=== PATIENT | male | born 1960 ===

== ENCOUNTER 2020-08-10 10:52 | Outpatient (REF) | payer MEDICARE, SELFPAY ==
[2020-08-10 13:29] LABS: MANUAL DIFF FLAG NO
[2020-08-10 13:38] LABS: Basophils Percent Auto 0.4 % (0-2); Eosinophils Absolute Auto 0.2 X10*3/uL (0.0-0.4); Eosinophils Percent Auto 3.2 % (0-4); Hemoglobin 13.2 g/dl (14.0-18.0); Imm Gran Abs Auto 0.02 X10*3/uL (0.00-0.03); Imm Gran Pct Auto 0.3 % (0.0-0.4); Lymphocytes Absolute Auto 1.9 X10*3/uL (1.2-4.9); Lymphocytes Percent Auto 25.1 % (20-40); Mean Corpuscular Hemoglobin 28.4 pg (27.0-33.0); Mean Platelet Volume 10.3 fL (9.4-12.4); Monocytes Absolute Auto 0.6 X10*3/uL (0.1-1.2); Monocytes Percent Auto 8.1 % (2-11); Neutrophils Absolute Auto 4.7 X10*3/uL (2.0-8.3); Neutrophils Percent Auto 62.9 % (45-73); Platelet Count 186 X10*3/uL (160-400); Red Blood Count 4.65 X10*6/uL (4.60-5.80); Red Cell Distribution Width 13.3 % (11.0-16.0); White Blood Count 7.5 X10*3/uL (4.8-10.8)
[2020-08-10 13:40] LABS: Estimated Average Glucose 105 mg/dL; Hemoglobin A1c % 5.3 %
[2020-08-10 13:48] LABS: Alanine Aminotransferase 37 U/L (0-40); Albumin Level 4.3 g/dL (3.5-5.0); Alkaline Phosphatase 73 U/L (39-117); Anion Gap 10 (12-20); Aspartate Amino Transferase 31 U/L (5-37); Bilirubin Total 0.7 mg/dL (0.0-1.0); Blood Urea Nitrogen 12 mg/dL (9-16); Carbon Dioxide 30 mmol/L (22-29); Chloride 104 mmol/L (96-108); Cholesterol 187 mg/dL; Estimated Glomerular Filt Rate > 60; Glucose Fasting 94 mg/dL (60-99); HDL Cholesterol 54 mg/dL; LDL Cholesterol Calculated 100 mg/dl; Potassium 4.3 mmol/l (3.3-5.1); Sodium 140 mmol/L (135-145); Total Protein 6.9 g/dL (6.5-8.0); Triglycerides 165 mg/dL
[2020-08-10 14:12] LABS: TSH reflex Free T4 < 0.01 mIU/mL (0.32-4.0)
[2020-08-10 14:34] LABS: Erythrocyte Sedimentation Rate 16 MM/HR (0-15)
[2020-08-10 15:11] LABS: Free T4 (Free Thyroxine) 1.09 ng/dL (0.71-1.85)
[2020-08-10 16:09] LABS: Appearance Urine CLEAR; Color Urine YELLOW; Glucose Urine UA NEG (NEG); Leukocyte Esterase Urine NEG (NEG); Nitrite Urine NEG (NEG); Specific Gravity - Urine 1.025 (1.005-1.025); Urine Blood NEG (NEG); Urine Ketones NEG (NEG); Urine Protein NEG (NEG-TRACE)
[2020-08-10 16:16] LABS: RBC Urine 0 /HPF (0); WBC Urine 0 /HPF (0-4)
== END 2020-08-10 10:53 | disposition home or self-care (01) ==
LOC: HO.LAB 10:52
PROVIDERS: PCP Internal Medicine; Referring Provider Internal Medicine; Visit Provider Surgery Vascular Surgery
DX: J45.20 Mild intermittent asthma, uncomplicated (principal); R73.01 Impaired fasting glucose; E66.9 Obesity, unspecified; I83.813 Varicose veins of bilateral lower extremities with pain; I73.9 Peripheral vascular disease, unspecified
CPT/HCPCS: 36415; 80053; 80061; 81001; 81003; 83036; 84439; 84443; 85025; 85652; 99203

== ENCOUNTER 2020-08-28 13:45 | Outpatient (REF) | payer MEDICARE, MEDICAID, OTHER, SELFPAY ==
--- NOTE | 2020-08-28 13:49 | US_ITS ---
EXAMINATION: NONINVASIVE ASSESSMENT OF THE ARTERIES OF BOTH LOWER EXTREMITIES WITH PVR EXAM AND BILATERAL LOWER EXTREMITY DUPLEX CLINICAL INFORMATION: Peripheral vascular disease. TECHNIQUE: Ankle pulse volume recordings, ankle pressure measurements and ankle brachial indices were obtained of the lower extremity arterial system bilaterally in addition to duplex Doppler techniques with wave form analysis and measurement of velocities in the common femoral, profunda femoral, superficial femoral, popliteal and tibial arteries. The study was performed only at rest. COMPARISON: None FINDINGS: a) AT REST: RIGHT LE. The right ankle-brachial index is: 1.3 2. Right ankle pressure: normal. 3. Right ankle PVR waveform: normal. 4. Right direct duplex Doppler findings: The vessels are patent. No stenosis is seen. * Common femoral artery: 108 cm/s, Diastolic flow reversal: Yes * Superficial femoral artery (proximal, mid, distal): 97, 110 and 75 cm/s, Diastolic flow reversal: Yes * Popliteal artery: 66 cm/s, Diastolic flow reversal: Yes * Posterior tibial artery: 131 cm/s, Diastolic flow reversal: No LEFT LE. The left ankle-brachial index is: 1.3 2. Left ankle pressure: normal. 3. Left ankle PVR waveform: normal. 4. Left direct duplex Doppler findings: The vessels are patent. No stenosis is seen. * Common femoral artery: 93 cm/s, Diastolic flow reversal: Yes * Superficial femoral artery (proximal, mid, distal): 101, 98 and 80 cm/s, Diastolic flow reversal: Yes * Popliteal artery: 53 cm/s, Diastolic flow reversal: Yes * Posterior tibial artery: 127 cm/s, Diastolic flow reversal: No SILVANA Reference: * >0.97-1.25 = normal - no significant arterial disease * 0.75-0.96 = mild peripheral arterial disease * 0.5-0.74 = moderate peripheral arterial disease * <0.50 = severe peripheral arterial disease US/US arterial duplex LE BI IMPRESSION: There is no evidence of any hemodynamically significant lower extremity arterial disease by pressure, waveform or duplex Doppler criteria at rest.
--- NOTE | 2020-08-28 13:49 | US_ITS ---
EXAMINATION: RIGHT and LEFT LOWER EXTREMITY VENOUS ULTRASOUND (Reflux Exam) CLINICAL INDICATION: leg pain and varicose veins. COMPARISON: None. TECHNIQUE: Color flow triplex imaging and compression Doppler was performed to evaluate both the deep and the superficial systems bilaterally. To evaluate the superficial system, the examination was performed in the upright position. Color-flow Doppler ultrasound and compression ultrasound were utilized. In addition, maneuvers were utilized to demonstrate reflux. FINDINGS: 1. DEEP VENOUS ULTRASOUND OF THE RIGHT LOWER EXTREMITY: Respiratory variation, normal compression and augmented flow are noted in the right common femoral vein as well as the right popliteal vein and there is no evidence of deep venous thrombosis at these locations. There is no evidence of reflux in the deep system in either the common femoral vein or the popliteal vein. There is no evidence of a Cook's cyst. 2. SUPERFICIAL ULTRASOUND WITH DOPPLER OF RIGHT LOWER EXTREMITY: The right great saphenous vein at the saphenofemoral junction measures 8 mm, at the mid thigh 3 mm, wismp-zzr-akmp 3 mm, nyejx-rdd-fema 3 mm, at mid calf 2 mm and at the ankle measures 2 mm. There is no reflux demonstrated in the right great saphenous vein. There is a medial accessory greater saphenous vein that measures 4 mm and does not demonstrate reflux. The right small saphenous vein measures 2 mm and shows no reflux. There are peripheral there is a automatic folder seamer in the proximal calf that measures 3 mm and demonstrates 0.5 second reflux. There is a 3 mm automatic folder seamer in the distal calf that does not demonstrate reflux. There is a varicosity in the proximal calf that measures 3 mm and demonstrates 0.9 seconds reflux. 3. DEEP VENOUS ULTRASOUND OF THE LEFT LOWER EXTREMITY: Respiratory variation, normal compression and augmented flow are noted in the left common femoral vein as well as the left popliteal vein and there is no evidence of deep venous thrombosis at these locations. There is no evidence of reflux in the deep system in either the common femoral vein or the popliteal vein. . There is no evidence of a Cook's cyst. 4. SUPERFICIAL ULTRASOUND WITH DOPPLER OF LEFT LOWER EXTREMITY: Left great saphenous vein at the saphenofemoral junction measures 11 mm, at the mid thigh 3 mm, fzkit-dar-fwqr 3 mm, nodzp-dwm-opbs 4 mm, at mid calf 3 mm and at the ankle measures 3 mm. There is no reflux demonstrated in the left great saphenous vein. There is a medial accessory greater saphenous vein that measures 5 mm and does not demonstrate reflux. The left small saphenous vein measures 3 mm and shows no reflux. There are perforators in the proximal and mid calf that measures 3 mm and do not demonstrate reflux. There are varicosities in the calf that measures 3 mm and do not demonstrate reflux. US/US venous duplex LE BI IMPRESSION: 1. No evidence of reflux or thrombus in the common femoral veins or popliteal veins bilaterally. 2. No greater saphenous vein reflux seen bilaterally. 3. [employer]ician and varicosity in the right proximal calf that demonstrate reflux.
== END 2020-08-28 13:46 | disposition home or self-care (01) ==
LOC: HO.US 13:45
PROVIDERS: Visit Provider Surgery Vascular Surgery
DX: I83.12 Varicose veins of left lower extremity with inflammation (principal); I73.9 Peripheral vascular disease, unspecified
CPT/HCPCS: 93925; 93970

== ENCOUNTER → 2020-09-26 14:05 | Outpatient (BNVA) | payer MEDICARE, SELFPAY | PROVIDERS: PCP Internal Medicine; Visit Provider Surgery Vascular Surgery | DX: I73.9 Peripheral vascular disease, unspecified (principal); I83.12 Varicose veins of left lower extremity with inflammation | CPT/HCPCS: 99212 ==

== ENCOUNTER → 2020-10-03 15:11 | Outpatient (BNVA) | payer OTHER, SELFPAY | PROVIDERS: PCP Internal Medicine; Referring Provider Internal Medicine; Visit Provider Nurse Practitioner | DX: Z76.89 Persons encountering health services in other specified circumstances (principal) ==

== ENCOUNTER 2020-12-05 07:31 | Day surgery (SDC) | payer MEDICARE, OTHER, SELFPAY ==
[2020-11-30 12:08] VITALS: BMI 32.1
--- NOTE | 2020-12-04 08:34 | HO.ANESPROP2 ---
Documented by User: Caren Lindsay 12/04/20 08:34 HPI - Anesthesia Eval Consult details Narrative: 60yo M for Colonoscopy [facility] Past Medical History Medical History (Updated 10/15/20 @ 18:20 by Volodymyr Keller MD) Anemia Asthma Bilateral ankle pain COVID-19 Obesity (BMI 30-39.9) Pain of right heel Pruritic rash Shoulder pain, bilateral Family History Family History Father No problems noted. Mother No problems noted. Son No problems noted. Son No problems noted. Son No problems noted. Son No problems noted. Son No problems noted. Daughter No problems noted. Daughter No problems noted. Brother No problems noted. Brother No problems noted. Brother No problems noted. Brother No problems noted. Brother No problems noted. Brother No problems noted. Sister No problems noted. Sister No problems noted. Social History Social History Alcohol intake: current Alcohol intake frequency: a few times a week Smoking Status: Never smoker Use of substances other than those prescribed or required for medical reasons: No Advance Directives: No Advance Directives Information Provided: No Advance Directives on File: No Meds Allergies Allergy/AdvReac Type Severity Reaction Status Date / Time latex Allergy Rash Verified 11/30/20 12:07 Home Medications Medication Instructions Recorded Confirmed Type albuterol sulfate 90 mcg/actuation 1 - 2 puff INHALATION Q4-6H PRN 08/10/20 10/03/20 History aerosol inhaler Exam Exam Date and Time: December 04, 2020 0834 Height,Weight and Vital Signs: Height 5 ft 11 in Weight 104.326 kg Assessment and Plan Assessment Anesthesia Assessment: Chart Reviewed Documented by User: Eleni Crawford 12/05/20 08:10 [facility] Past Medical History Medical History (Updated 10/15/20 @ 18:20 by Volodymyr Keller MD) Anemia Asthma Bilateral ankle pain COVID-19 Obesity (BMI 30-39.9) Pain of right heel Pruritic rash Shoulder pain, bilateral Family History Family History Father No problems noted. Mother No problems noted. Son No problems noted. Son No problems noted. Son No problems noted. Son No problems noted. Son No problems noted. Daughter No problems noted. Daughter No problems noted. Brother No problems noted. Brother No problems noted. Brother No problems noted. Brother No problems noted. Brother No problems noted. Brother No problems noted. Sister No problems noted. Sister No problems noted. Social History Social History Alcohol intake: current Alcohol intake frequency: a few times a week Smoking Status: Never smoker Use of substances other than those prescribed or required for medical reasons: No Advance Directives: No Advance Directives Information Provided: No Advance Directives on File: No Meds Allergies Allergy/AdvReac Type Severity Reaction Status Date / Time latex Allergy Rash Verified 11/30/20 12:07 Home Medications Medication Instructions Recorded Confirmed Type albuterol sulfate 90 mcg/actuation 1 - 2 puff INHALATION Q4-6H PRN 08/10/20 10/03/20 History aerosol inhaler Exam Airway Mallampati Class: III TM Dist: >3cm Neck ROM: Full Loose/Missing/Broken Teeth: No Heart: RRR Lungs: CTA Assessment and Plan Assessment Anesthesia Assessment: Anesthesia Plan Discussed and Chart Reviewed Final Anesthetic Review NPO: Yes ASA Class: II Final Preanesthetic Review: Meds/Allgs Chart Reviewed, Consent Obtained/Reviewed and Anes Risks/Benef Reviewed Patient Risk: Low Procedure Risk: Low Anesthetic Plan Anesthetic Plan: MAC: Disposition: Standard PACU
[2020-12-05 08:11] VITALS: BP 134/89; PULSE 80; RESP 16; TEMP 36.6; O2SAT 98
[2020-12-05] MEDS: Lactated Ringers 1,000 ML 100 ML IVCONT (08:16)
--- NOTE | 2020-12-05 08:42 | MHC.SHP ---
Pre-Procedural Eval Section B Chief Complaint: screening Details of Present Illness: COLON CANCER SCREENING #1 NO CLINICAL CHANGES SINCE OCTOBER S/P COVID INFECTION >3 MONTHS Relevant Family History (Specify if Yes): No Relevant Social History: None Present Medications: see Short Stay Collaborative assessment Medical History: Significant History (ASTHMA, OBESITY) History of Previous Operations: No relevant previous surgery Allergies: Allergies Allergy/AdvReac Type Severity Reaction Status Date / Time latex Allergy Rash Verified 11/30/20 12:07 Review of Systems Sugical H&P ROS: Negative: Constitution, Cardiovascular, Respiratory and Gastrointestinal Exam Surgical H&P Exam: Normal: HEENT, Normal: Heart, Normal: Lungs, Normal: Abdomen and Normal: Skin Plan Diagnosis/Plan: Unchanged I have reviewed the history and physical and performed a pertinent physical examination on my patient. No changes have occurred unless specified.YES
--- NOTE | 2020-12-05 09:14 | PM.PROC ---
Brief Operative Note Date of procedure: 12/05/20 Pre-op diagnosis: COLON CANCER SCREENING #1 Post-op diagnosis: other (COLON POLYPS, POOR PREP) Procedure: SILVANA: PROSTATE-NL, SPHINCTER DECREASED SCOPE INTRODUCED NOTE GENERALLY POOR PREP; ABLE TO GET TO CECUM BUT LIMITED VISIBILITY. ON WITHDRAWAL 2 POLYPS WERE REMOVED EXCISIONALLY COLD BX FORCEPS. ARV CLEAR/ AREAS BLINDED DUE TO PREP. REPEAT EXAM IN 3 YEARS --2 DAY PREP Anesthesia: MAC (JOE URRUTIA, MD YOKO) Surgeon: Ruchi Green Estimated blood loss (mL): 10 Pathology: other (DISTAL TRANSVERSE COLON, 60--70CM) Condition: stable Disposition: PACU
[2020-12-05 09:19] VITALS: BP 123/58; PULSE 69; RESP 16; TEMP 36.6; O2SAT 98
--- NOTE | 2020-12-05 09:26 | MHC.SHP ---
Pre-Procedural Eval Section B Chief Complaint: screening Details of Present Illness: Colon Cancer Screening; Hx of tubular adenoma ? hx Brother with colon cancer @ 38. Relevant Family History (Specify if Yes): Yes Relevant Social History: Tobacco Use (stopped 2017) Present Medications: see Short Stay Collaborative assessment Medical History: Significant History (asthma, copd, CRUZ-CPAP, Morbid Obesity(44.8)anxiety/depression) History of Previous Operations: Relevant previous surgery/procedure and date(s) (colo--2019; Disc surgery, umbiical hernia repair) Allergies: Allergies Allergy/AdvReac Type Severity Reaction Status Date / Time latex Allergy Rash Verified 11/30/20 12:07 Review of Systems Sugical H&P ROS: Negative: Constitution, Cardiovascular, Respiratory, Neurological, Psychiatric and Gastrointestinal Exam Surgical H&P Exam: Normal: HEENT, Normal: Heart, Normal: Lungs and Normal: Extremities and Significant Findings: Abdomen (marked central obesity) Plan Diagnosis/Plan: Unchanged I have reviewed the history and physical and performed a pertinent physical examination on my patient. No changes have occurred unless specified.Yes
[2020-12-05 09:33] VITALS: BP 135/95; PULSE 71; RESP 18; O2SAT 98
--- NOTE | 2020-12-05 09:39 | PM.EVENT ---
Event Note Date of Service: 12/05/20 Event Note: Patient was a no show. THE PREPROCEDURE NOTE WAS DONE IN ERROR--NO INFORMATION FROM THIS PATIENT--INFO ENTERED IN ERROR FROM THE WRONG PATIENT.. THIS PATIENT WILL NEED TO BE RESCHEDULED.
[2020-12-05 09:53] VITALS: BP 120/80; PULSE 72; RESP 20; TEMP 36.8; O2SAT 98
--- NOTE | 2020-12-05 10:24 | HO.POSTANES ---
Post Anesthesia Evaluation Post Anesthesia Evaluation Vital Signs: Vital Signs Temp Pulse Resp BP Pulse Ox 12/05/20 09:53 98.2 F 72 20 120/80 98 12/05/20 09:33 71 18 135/95 H 98 12/05/20 09:19 97.9 F 69 16 123/58 L 98 12/05/20 08:11 97.8 F 80 16 134/89 98 Anesthesia: Monitored Mental Status: Awake Pain Control: Satisfactory Nausea/Vomiting: None Hydration: Adequate Anesthesia-Related Issues: No Anes. Related Issues
== END 2020-12-05 10:40 | disposition home or self-care (01) ==
PROVIDERS: PCP Internal Medicine; Visit Provider Internal Medicine Gastroenterology
PROC: 0DJD8ZZ Inspection of Lower Intestinal Tract, Via Natural or Artificial Opening Endoscopic (ICD-10-PCS; CPT 45378; principal; 2020-12-05 08:40)
DX: Z12.11 Encounter for screening for malignant neoplasm of colon (principal); D12.3 Benign neoplasm of transverse colon; D12.4 Benign neoplasm of descending colon; D64.9 Anemia, unspecified; J45.909 Unspecified asthma, uncomplicated; Z91.040 Latex allergy status; Z86.16 Personal history of COVID-19
CPT/HCPCS: 45380; 88305

== ENCOUNTER → 2020-12-26 15:12 | Outpatient (BNVA) | payer OTHER, SELFPAY | PROVIDERS: PCP Internal Medicine; Visit Provider Nurse Practitioner ==

== ENCOUNTER → 2021-03-26 12:50 | Outpatient (BNVA) | payer MEDICARE, OTHER, SELFPAY | PROVIDERS: Visit Provider Nurse Practitioner | DX: Z13.89 Encounter for screening for other disorder (principal) | CPT/HCPCS: Q3014 ==

== ENCOUNTER → 2021-04-24 12:58 | Outpatient (BNVA) | payer OTHER, SELFPAY | PROVIDERS: Referring Provider Internal Medicine; Visit Provider Nurse Practitioner ==

== ENCOUNTER 2021-05-16 10:12 | Outpatient (REF) | payer OTHER, SELFPAY ==
--- NOTE | ~2021-05-16 | XR_ITS ---
EXAMINATION: XR CHEST CLINICAL INFORMATION: Dyspnea. COMPARISON: Chest radiograph dated 12/08/2006. TECHNIQUE: 2 views of the chest were obtained. FINDINGS: The lungs are clear. The cardiomediastinal silhouette is normal in size. There is no pleural effusion or pneumothorax. No acute osseous abnormality. XR/XR chest 2V IMPRESSION: No acute cardiopulmonary findings.
== END 2021-05-16 10:13 | disposition home or self-care (01) ==
LOC: HO.XRAY 10:12
PROVIDERS: PCP Internal Medicine; Visit Provider Internal Medicine
DX: R06.00 Dyspnea, unspecified (principal)
CPT/HCPCS: 71046

== ENCOUNTER 2021-06-08 11:01 | Outpatient (REF) | payer OTHER, SELFPAY ==
--- NOTE | 2021-06-08 | PFT_ITS ---
FLOWS: FEV1 of 86% of predicted at 3.28 L. FVC 77% of predicted at 3.78 L. FEV1 to FVC ratio of 0.87. No bronchodilator response. LUNG VOLUMES: Total lung capacity 72% of predicted at 5.18 L. Residual volume 62% of predicted at 1.41 L. Slow vital capacity 76% of predicted at 3.76 L. Expiratory reserve volume 46% of predicted at 0.69 L. Diffusion capacity is mildly decreased, diffusion capacity adjust to normal after correction for alveolar ventilation. IMPRESSION: Mild restrictive ventilatory defect with no bronchodilator response. Decreased expiratory reserve volume suggests extrathoracic restriction secondary to abdominal obesity. Decreased diffusion capacity together with decreased total lung capacity suggests underlying pulmonary vascular or parenchymal disease. Clinical correlation is advised. MD CARLA Joseph/MODL / [id number]
== END 2021-06-08 11:02 | disposition home or self-care (01) ==
LOC: HO.RESP 11:01
PROVIDERS: PCP Internal Medicine; Visit Provider Internal Medicine
DX: R06.00 Dyspnea, unspecified (principal)
CPT/HCPCS: 94060; 94727; 94729

== ENCOUNTER → 2021-10-02 14:25 | Outpatient (BNVA) | payer MEDICARE, OTHER, SELFPAY | PROVIDERS: PCP Internal Medicine; Visit Provider Internal Medicine Pulmonary Disease | DX: R06.00 Dyspnea, unspecified (principal) | CPT/HCPCS: 99202 ==

== ENCOUNTER 2021-10-18 14:21 | Outpatient (REF) | payer MEDICARE, MEDICAID, SELFPAY ==
--- NOTE | ~2021-10-18 | CT_ITS ---
EXAMINATION: CT CHEST WITHOUT CONTRAST CLINICAL INFORMATION: Post Covid condition COMPARISON: None TECHNIQUE: Multidetector volumetric CT imaging of the chest was done. Axial MIP volume rendering provided. Sagittal and coronal reformatted images were obtained. This CT examination was performed using dose optimization techniques as appropriate, variously including the following: *Automated exposure control *Adjustment of mA and/or kV according to patient size (this includes techniques or standardized protocols for targeted exams where dose is matched to indication/reason for exam; i.e. extremities or head) *Use of iterative reconstruction technique DLP: 186 mGy-cm FINDINGS: LUNGS: There is a 5 mm peripheral or subpleural right lower lobe nodule adjacent to the major fissure axial image 89 series 5. There is a 4 mm peripheral or subpleural left lower lobe nodule adjacent to the fissure axial image 212 series 5. There is a 4 mm peripheral or subpleural right upper lobe nodule adjacent to the minor fissure axial image 239 series 5. These probably represent subpleural lymph nodes. There are areas of heterogeneous increased peripheral attenuation seen in the lungs, largest area measuring 1.5 cm in the right upper lobe axial image 114 series 5. MEDIASTINUM: The mediastinum is normal. PLEURA: There is no pleural effusion. No pleural mass or thickening. AXILLA: No lymphadenopathy. UPPER ABDOMEN: Unremarkable. OSSEOUS STRUCTURES: Unremarkable. CT/CT chest wo con IMPRESSION: Small pulmonary nodules probably representing subpleural lymph nodes measuring 4 mm. According to the UPDATED 2017 Fleischner Society recommendations, the advised follow-up imaging for less than 6 mm nodule: Low risk, no chest CT follow-up and high risk, optional chest CT follow-up in one year. Scattered small peripheral areas of increased attenuation. Fleischner guidelines were followed.
== END 2021-10-18 14:22 | disposition home or self-care (01) ==
LOC: HO.CT 14:21
PROVIDERS: Visit Provider Internal Medicine Pulmonary Disease
DX: U09.9 Post COVID-19 condition, unspecified (principal)
CPT/HCPCS: 71250

== ENCOUNTER → 2021-10-23 13:09 | Outpatient (BNVA) | payer MEDICARE, MEDICAID, SELFPAY | PROVIDERS: PCP Internal Medicine; Referring Provider Internal Medicine; Visit Provider Nurse Practitioner | DX: K21.9 Gastro-esophageal reflux disease without esophagitis (principal); R19.7 Diarrhea, unspecified; R10.9 Unspecified abdominal pain | CPT/HCPCS: 99212 ==

== ENCOUNTER → 2021-12-11 08:22 | Outpatient (REF) | payer MEDICARE, OTHER, MEDICAID, SELFPAY ==
--- NOTE | 2021-12-11 08:25 | CA_ITS ---
Transthoracic Echocardiogram Patient (Last, First, Middle): Demarcsu Molina R Gender: Male Date of : 1960 Age: 61 Procedure Date: 12/11/2021 Procedure Type: Transthoracic Echocardiogram Location: OP Height: 180.34 cm Weight: 106.6 kg BSA: 2.26 m2 Heart Rate: bpm BP: 120 / 82 mmHg Pharm Spec: ADRIAN Referring MD: Matty Larios MD Symptoms: R06.00 - Dyspnea, unspecified Study Quality: Good ECG Rhythm: Sinus Conclusions: - The left ventricular systolic function is normal. The visually estimated ejection fraction is between 60-65%. - No obvious valvular pathology seen on this study. - There is mild dilatation of the ascending aorta measuring 4.10 cm. - The inferior vena cava is mildly dilated (not well visualized). Findings Left Ventricle Normal left ventricular cavity size. The left ventricular systolic function is normal. The visually estimated ejection fraction is between 60-65%. There is no evidence of regional wall motion abnormalities. Diastolic function is normal for age. There is mild septal asymmetric hypertrophy. Right Ventricle Normal right ventricular cavity size and systolic function. Atria The left atrium is mildly dilated. The right atrium is normal in size. Aortic Valve There is a normal trileaflet aortic valve. There is no aortic valve stenosis. There is trace (trivial) aortic valve regurgitation. Mitral Valve The mitral valve appears normal. There is trace mitral valve regurgitation. There is no mitral valve stenosis. Pulmonic Valve The pulmonic valve was not well visualized. There is trace pulmonic valve regurgitation. Tricuspid Valve Normal tricuspid valve structure. There is trace tricuspid valve regurgitation. The pulmonary artery systolic pressure is normal. Great Vessels There is mild dilatation of the ascending aorta measuring 4.10 cm. Venous The inferior vena cava was not well visualized. The inferior vena cava is mildly dilated. Pericardium/Pleural There is no evidence of pericardial effusion. Prior Study Comparison No prior study available for comparison. Recommendations, Care & Conclusions No obvious valvular pathology seen on this study. Measurements 2D Linear Measurements IVSd: 1.08 0.6-0.9/0.6-1.0 cm LVIDd: 5.16 3.9-5.3/4.2-5.9 cm LVIDd Index: 2.28 2.4-3.2/2.2-3.1 cm/m2 LVIDs: 2.79 2.0-3.6 cm LVPWd: 0.99 0.7-1.1 cm Ao Root: 3.80 2.1-3.5 cm LA Diam: 4.10 2.7-3.8/3.0-4.0 cm LAIDs Index: 1.81 1.5-2.3 cm/m2 LV Mass: 250.00 67-162/88-224 g LV Mass Index: 110.62 43-95/49-115 g/m2 LVOT Diam: 2.20 3.0+(-)1.3 cm 2D Systolic Function EF 4C: 58.80 >55% EF 2C: 60.00 >55% EF BiP: 57.30 >55% Mitral Valve MV Pk E: 0.96 MV PK A: 0.47 MV Decel Time: 204.00 E/A: 2.10 E'Lateral: 10.70 E'Medial: 8.70 E/E' Med: 11.00 E/E' Lat: 9.00 PHT: 60.00 MVA PHT: 3.67 Decel [place]: 4.72 Aortic Valve AoV Pk Joseph: 1.35 AoV Mn Joseph: 0.94 AoV VTI: 0.31 AoV Pk Grad: 7.00 Aov Mn Grad: 4.00 LVOT LVOT Diam: 2.20 LVOT Area: 3.80 Diastolic Function MV Pk E: 0.96 MV Pk A: 0.47 E/A: 2.10 E'Medial: 8.70 E/E' Med: 11.00 E' Laterial: 10.70 E/E' Lat: 9.00 Right Ventricle TAPSE (mm): 24.40 TVS' Joseph: 11.60 Tricuspid Valve TR Pk Joseph: 1.66 TR Pk Grad: 11.00 RA Press: 8.00 RVSP: 19.00 Great Vessels Aorta Ao Root-2D: 3.80 2.0-3.7 cm Ao Asc: 4.10 2.1-3.4 cm Ao Arch: 3.50 Updated in Other Vendor System with Status of Final Dago Wan MD electronically signed on 12/11/2021 11:14:03 AM with status of Final
== END ==
LOC: HO.CARD 08:22
PROVIDERS: PCP Internal Medicine; Visit Provider Internal Medicine Pulmonary Disease
DX: R06.00 Dyspnea, unspecified (principal)
CPT/HCPCS: 93306

== ENCOUNTER → 2021-12-27 13:05 | Outpatient (BNVA) | payer MEDICARE, MEDICAID, SELFPAY | PROVIDERS: PCP Internal Medicine; Visit Provider Internal Medicine Pulmonary Disease | DX: R06.00 Dyspnea, unspecified (principal); U09.9 Post COVID-19 condition, unspecified; J45.20 Mild intermittent asthma, uncomplicated | CPT/HCPCS: 99212 ==

== ENCOUNTER → 2022-01-22 13:02 | Outpatient (BNVA) | payer MEDICARE, MEDICAID, SELFPAY | PROVIDERS: PCP Internal Medicine; Referring Provider Internal Medicine; Visit Provider Nurse Practitioner | DX: R10.9 Unspecified abdominal pain (principal); K21.9 Gastro-esophageal reflux disease without esophagitis; R19.7 Diarrhea, unspecified; Z79.899 Other long term (current) drug therapy | CPT/HCPCS: 99212 ==

== ENCOUNTER → 2022-04-09 13:28 | Outpatient (BNVA) | payer MEDICARE, MEDICAID, SELFPAY | PROVIDERS: PCP Internal Medicine; Referring Provider Internal Medicine; Visit Provider Nurse Practitioner | DX: K21.9 Gastro-esophageal reflux disease without esophagitis (principal); K58.2 Mixed irritable bowel syndrome; Z79.899 Other long term (current) drug therapy | CPT/HCPCS: 99212 ==

== ENCOUNTER 2022-08-29 12:02 | Outpatient (REF) | payer MEDICARE, MEDICAID, SELFPAY ==
[2022-08-29 12:41] LABS: MANUAL DIFF FLAG NO
[2022-08-29 13:40] LABS: Basophils Percent Auto 0.4 % (0-2); Eosinophils Absolute Auto 0.3 X10*3/uL (0.0-0.4); Eosinophils Percent Auto 3.8 % (0-4); Hematocrit 39.7 % (42.0-52.0); Hemoglobin 12.6 g/dl (14.0-18.0); Imm Gran Abs Auto 0.01 X10*3/uL (0.00-0.03); Imm Gran Pct Auto 0.1 % (0.0-0.4); Lymphocytes Absolute Auto 1.9 X10*3/uL (1.2-4.9); Lymphocytes Percent Auto 26.2 % (20-40); Mean Corpuscular HGB Conc 31.7 g/dl (31.0-36.0); Mean Corpuscular Hemoglobin 27.5 pg (27.0-33.0); Mean Corpuscular Volume 86.5 fL (80.0-98.0); Mean Platelet Volume 10.4 fL (9.4-12.4); Monocytes Absolute Auto 0.7 X10*3/uL (0.1-1.2); Neutrophils Absolute Auto 4.4 x10*3/uL (2.0-8.3); Neutrophils Percent Auto 60.5 % (45-73); Platelet Count 170 X10*3/uL (160-400); Red Blood Count 4.59 X10*6/uL (4.60-5.80); White Blood Count 7.3 X10*3/uL (4.8-10.8)
[2022-08-29 13:52] LABS: Estimated Average Glucose 111 mg/dL; Hemoglobin A1c % 5.5 %
[2022-08-29 14:17] LABS: Appearance Urine Clear; Color Urine Dark Yellow; Glucose Urine UA Negative (Negative); Leukocyte Esterase Urine Negative (Negative); Nitrite Urine Negative (Negative); Specific Gravity - Urine 1.025 (1.005-1.025); Urine Blood Negative (Negative); Urine Ketones Trace mg/dL (Negative); Urine Protein Negative (Neg-Trace)
[2022-08-29 14:21] LABS: Alanine Aminotransferase 23 U/L (0-40); Albumin Level 4.1 g/dL (3.5-5.0); Alkaline Phosphatase 70 U/L (39-117); Anion Gap 14 (12-20); Aspartate Amino Transferase 29 U/L (5-37); Bilirubin Total 0.5 mg/dL (0.0-1.0); Blood Urea Nitrogen 13 mg/dL (9-16); Calcium 8.9 mg/dL (8.4-10.2); Carbon Dioxide 26 mmol/L (22-29); Chloride 105 mmol/L (96-108); Cholesterol 180 mg/dL; Estimated Glomerular Filt Rate > 60; Glucose Fasting 95 mg/dL (60-99); HDL Cholesterol 54 mg/dL; LDL Cholesterol Calculated 93 mg/dl; Potassium 4.4 mmol/L (3.3-5.1); Sodium 141 mmol/L (135-145); Total Protein 6.9 g/dL (6.5-8.0); Triglycerides 169 mg/dL
[2022-08-29 14:34] LABS: TSH reflex Free T4 1.24 uIU/mL (0.32-4.0)
== END 2022-08-29 12:03 | disposition home or self-care (01) ==
LOC: HO.LAB 12:02
PROVIDERS: Visit Provider Internal Medicine
DX: E78.00 Pure hypercholesterolemia, unspecified (principal); E55.9 Vitamin D deficiency, unspecified; R73.02 Impaired glucose tolerance (oral); R79.89 Other specified abnormal findings of blood chemistry; I10 Essential (primary) hypertension
CPT/HCPCS: 36415; 80053; 80061; 81003; 82306; 83036; 84443; 85025

== ENCOUNTER → 2022-11-11 15:11 | Outpatient (REF) | payer MEDICARE, MEDICAID, SELFPAY ==
--- NOTE | 2022-11-11 15:19 | ECG_ITS ---
Test Reason : PREOP Blood Pressure : / mmHG Vent. Rate : 067 BPM Atrial Rate : 067 BPM P-R Int : 168 ms QRS Dur : 070 ms QT Int : 346 ms P-R-T Axes : 027 -09 099 degrees QTc Int : 365 ms Normal sinus rhythm Nonspecific T wave abnormality Abnormal ECG No previous ECGs available Referred By: Winnie Nava Electronically Signed By:Wolf Ndiaye
== END ==
LOC: HO.CARD 15:11
PROVIDERS: PCP Internal Medicine; Visit Provider Internal Medicine
DX: Z01.818 Encounter for other preprocedural examination (principal)
CPT/HCPCS: 93005

== ENCOUNTER 2022-11-28 15:52 | Outpatient (REF) | payer MEDICARE, MEDICAID, SELFPAY ==
[2022-11-28 18:20] LABS: Anion Gap 13 (12-20); Blood Urea Nitrogen 14 mg/dL (9-16); Calcium 9.5 mg/dL (8.4-10.2); Carbon Dioxide 28 mmol/L (22-29); Chloride 106 mmol/L (96-108); Estimated Glomerular Filt Rate > 60; Glucose Random 93 mg/dL (60-115); Potassium 4.5 mmol/L (3.3-5.1); Sodium 142 mmol/L (135-145)
[2022-11-28 18:38] LABS: T4 Thyroxine 6.9 ug/dL (4.5-12.0); Thyroid Stimulating Hormone 1.14 uIU/mL (0.32-4.0)
[2022-11-28 18:44] LABS: Folate 17.3 ng/mL (> or = 4.0); Vitamin B12 204 pg/mL (200-900)
[2022-12-05 14:23] LABS: Vitamin D 25-OH, D2 <4 ng/mL; Vitamin D 25-OH, D3 27 ng/mL; Vitamin D 25-OH, Total 27 ng/mL (30-100)
== END 2022-11-28 15:53 | disposition home or self-care (01) ==
LOC: HO.LAB 15:52
PROVIDERS: PCP Internal Medicine; Visit Provider Psychiatry & Neurology Neurology
DX: G31.84 Mild cognitive impairment of uncertain or unknown etiology (principal)
CPT/HCPCS: 36415; 80048; 82306; 82607; 82746; 84436; 84443

== ENCOUNTER 2023-01-23 13:38 | Outpatient (REF) | payer MEDICARE, MEDICAID, SELFPAY ==
--- NOTE | ~2023-01-23 | CT_ITS ---
EXAMINATION: CT HEAD WITHOUT CONTRAST CLINICAL INFORMATION: Mild cognitive impairment. COMPARISON: There are no prior studies available for comparison. TECHNIQUE: Multidetector CT imaging of the head was obtained without the use of intravenous contrast. Coronal and sagittal reformatted images were generated at the technologist workstation. This CT examination was performed using dose optimization techniques as appropriate, variously including the following: *Automated exposure control *Adjustment of mA and/or kV according to patient size (this includes techniques or standardized protocols for targeted exams where dose is matched to indication/reason for exam; i.e. extremities or head) *Use of iterative reconstruction technique DLP: 721 mGy-cm. FINDINGS: There is no evidence of acute intracranial hemorrhage or territorial infarction. No abnormal mass-effect or midline shift is seen. Painting to white matter differentiation is well preserved. No extra-axial fluid collections are identified. The ventricles and sulci are slightly commensurately prominent. There is mild low-attenuation in the deep white matter consistent with mild chronic microvascular ischemic changes. There are no acute osseous or soft tissue abnormalities. There is a fracture of the left lamina papyracea with some fat within the defect. Some of the posterior neck and calvarial structures are not included in the [id number] of this study. There appear to be sequelae of bilateral lens extractions. The right frontal sinus is hypoplastic. The mastoid air cells and other visualized paranasal sinuses are well aerated.. CT/CT head/brain wo IV con IMPRESSION: 1. There are no acute bleeds or territorial infarcts. No masses are demonstrated. 2. There are chronic microvascular ischemic changes and there is mild diffuse volume loss. 3. There are sequelae of a left lamina papyracea fracture.
== END 2023-01-23 13:39 | disposition home or self-care (01) ==
LOC: HO.CT 13:38
PROVIDERS: PCP Internal Medicine; Visit Provider Psychiatry & Neurology Neurology
DX: G31.84 Mild cognitive impairment of uncertain or unknown etiology (principal)
CPT/HCPCS: 70450

== ENCOUNTER → 2023-01-30 11:49 | Outpatient (BNVA) | payer MEDICARE, MEDICAID, SELFPAY | PROVIDERS: PCP Internal Medicine; Referring Provider Internal Medicine; Visit Provider Nurse Practitioner | DX: Z01.818 Encounter for other preprocedural examination (principal); K21.9 Gastro-esophageal reflux disease without esophagitis; K58.2 Mixed irritable bowel syndrome; D12.6 Benign neoplasm of colon, unspecified; Z98.890 Other specified postprocedural states | CPT/HCPCS: 99212 ==

== ENCOUNTER 2023-07-03 12:14 | Outpatient (REF) | payer MEDICARE, MEDICAID, SELFPAY ==
[2023-07-03 12:29] LABS: MANUAL DIFF FLAG NO
[2023-07-03 12:41] LABS: Basophils Percent Auto 0.4 % (0-2); Eosinophils Absolute Auto 0.3 X10*3/uL (0.0-0.4); Eosinophils Percent Auto 3.5 % (0-4); Hematocrit 40.3 % (42.0-52.0); Hemoglobin 13.1 g/dl (14.0-18.0); Imm Gran Abs Auto 0.03 X10*3/uL (0.00-0.03); Imm Gran Pct Auto 0.4 % (0.0-0.4); Lymphocytes Absolute Auto 2.2 X10*3/uL (1.2-4.9); Lymphocytes Percent Auto 28.6 % (20-40); Mean Corpuscular HGB Conc 32.5 g/dl (31.0-36.0); Mean Corpuscular Hemoglobin 27.8 pg (27.0-33.0); Mean Corpuscular Volume 85.6 fL (80.0-98.0); Monocytes Absolute Auto 0.6 X10*3/uL (0.1-1.2); Neutrophils Absolute Auto 4.5 x10*3/uL (2.0-8.3); Neutrophils Percent Auto 59.1 % (45-73); Platelet Count 172 X10*3/uL (160-400); Red Blood Count 4.71 X10*6/uL (4.60-5.80); Red Cell Distribution Width 14.5 % (11.0-16.0); White Blood Count 7.7 X10*3/uL (4.8-10.8)
[2023-07-03 12:59] LABS: Estimated Average Glucose 105 mg/dL; Hemoglobin A1c % 5.3 % (<6.0)
[2023-07-03 13:47] LABS: Alanine Aminotransferase 22 U/L (0-40); Albumin Level 4.2 g/dL (3.5-5.0); Alkaline Phosphatase 74 U/L (39-117); Anion Gap 11 (12-20); Aspartate Amino Transferase 27 U/L (5-37); Bilirubin Total 0.6 mg/dL (0.0-1.0); Blood Urea Nitrogen 13 mg/dL (9-16); Calcium 9.6 mg/dL (8.4-10.2); Carbon Dioxide 29 mmol/L (22-29); Chloride 106 mmol/L (96-108); Cholesterol 189 mg/dL (<200); Estimated Glomerular Filt Rate > 60; Glucose Fasting 93 mg/dL (60-99); HDL Cholesterol 53 mg/dL (>40); Iron 51 mcg/dL (45-160); LDL Cholesterol Calculated 106 mg/dL (<100); Percent Iron Saturation 16 % (15-50); Potassium 4.4 mmol/L (3.3-5.1); Sodium 142 mmol/L (135-145); Total Iron Binding Capacity 323 mcg/dL (228-428); Total Protein 7.3 g/dL (6.5-8.0); Triglycerides 153 mg/dL (<150); Unsaturated Iron Binding 272 ug/dL
[2023-07-03 14:15] LABS: TSH reflex Free T4 1.38 uIU/mL (0.32-4.0); Vitamin D 25-OH Total 36.5 ng/mL (>30)
[2023-07-03 15:39] LABS: Appearance Urine Clear; Color Urine Yellow; Glucose Urine UA Negative (Negative); Leukocyte Esterase Urine Negative (Negative); Nitrite Urine Negative (Negative); PH 6.5 (5.0-9.0); Urine Blood Negative (Negative); Urine Ketones Negative (Negative); Urine Protein Negative (Neg-Trace)
== END 2023-07-03 12:15 | disposition home or self-care (01) ==
LOC: HO.LAB 12:14
PROVIDERS: PCP Internal Medicine; Visit Provider Internal Medicine
DX: Z00.00 Encounter for general adult medical examination without abnormal findings (principal); Z12.5 Encounter for screening for malignant neoplasm of prostate; R30.0 Dysuria; E78.00 Pure hypercholesterolemia, unspecified; R73.02 Impaired glucose tolerance (oral); I10 Essential (primary) hypertension; D50.9 Iron deficiency anemia, unspecified; E55.9 Vitamin D deficiency, unspecified
CPT/HCPCS: 36415; 80053; 80061; 81003; 82306; 83036; 83540; 84153; 84443; 85025

== ENCOUNTER 2023-07-09 14:04 | Outpatient (AMB) | payer MEDICARE, MEDICAID, SELFPAY ==
[2023-07-09 14:09] VITALS: BP 120/86; PULSE 69; O2SAT 97; BMI 33.8
--- NOTE | 2023-07-09 14:09 | A.OFFPC_ITS ---
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 Accompanied by: Self / Same As Patient Allergies latex Allergy (Verified 07/09/23 14:33) Rash Medication List - Last Reconciled 07/09/23 by Volodymyr Keller MD cholecalciferol (vitamin D3) 50 mcg PO DAILY 90 days citalopram 10 mg PO DAILY dicyclomine 20 mg PO QID famotidine 40 mg PO BEDTIME fluticasone propionate 50 mcg/actuation 2 sprays intranasal DAILY 30 days ipratropium-albuterol 0.5 mg-3 mg(2.5 mg base)/3 mL 3 mL inhalation Q6-8H PRN 30 days peg 3350-electrolytes 236-22.74-6.74 -5.86 gram (Golytely) 240 mL PO Q10M 1 day trazodone 50 mg PO BEDTIME PRN 30 days triamcinolone acetonide 0.025% 1 appl topical TID PRN Tobacco use date assessed: 07/09/23 Dental Screening Dental Screen Date: 07/09/23 Did you have a dental visit in the last 12 months?: Yes Did you have a dental problem in the last 6 months where you did not have access to dental care?: No Was dental information given to patient?: Patient has dentist HPI PE HPI Details Patient comes in today for his annual physical examination States that he feels okay He denies any headaches or dizziness Denies any chest pains, no SOB No nausea/vomiting, no abdominal pain No change in bowel habits noted He denies any acute urinary symptoms Had his follow up labs done last week - to discuss his results Adds that he is being scheduled by his dentist for some deep cleaning and some tooth extractions under local anesthesia and needs his clearance form completed KELI Had his screening colonoscopy done by Dr. Green back in 2020 - was advised that he will need a repeat colonoscopy in 3 years due to poor prep [facility] Medical History Abdominal pain Allergic rhinitis Anemia Anxiety Asthma Bilateral ankle pain COVID-19 Dermatitis Dyspnea Obesity (BMI 30-39.9) Pain of right heel Pruritic rash Shoulder pain, bilateral Vitamin D deficiency Surgical History Hx of colonoscopy Family History Father Cancer Mother No problems noted. Son No problems noted. Daughter No problems noted. Brother No problems noted. Sister No problems noted. Other Diabetes HTN (hypertension) Social History Housing: Apartment Alcohol intake: current Alcohol intake frequency: a few times a week Alcohol type: beer and hard liquor Patient Tobacco Use Status: Never used Tobacco e-Cigarette/Vaping Use: Never Used Second Hand Smoke Exposure: Yes service: No Current occupational status: disabled Cognitive needs: No Hearing needs: No Vision needs: Yes Questionnaire PHQ-9 Over the last 2 weeks, how often have you been bothered by any of the following problems? 1. Little interest or pleasure in doing things: not at all 2. Feeling down, depressed, or hopeless: not at all 3. Trouble falling or staying asleep, or sleeping too much: several days 4. Feeling tired or having little energy: not at all 5. Poor appetite or overeating: not at all 6. Feeling bad about yourself - or that you are a failure or have let yourself or your family down: not at all 7. Trouble concentrating on things, such as reading the newspaper or watching television: not at all 8. Moving or speaking so slowly that other people could have noticed. Or the opposite - being so fidgety or restless that you have been moving around a lot more than usual: not at all 9. Thoughts that you would be better off or of hurting yourself in some way: not at all Total score: 1 Depression Screening Interpretation: Negative 10941 - PHQ-9 Billing: Yes Source: Developed by Drs. Matt Munoz, Halina Moscoso, Luis Mckeon and colleagues, with an educational danika from [employer]. Thrive Questionnaire Date Thrive assessed: 07/09/23 I am a: Patient What is your living situation today?: I have a steady place to live Within the past 12 months, did the food you bought not last and you didn't have the money to get more?: Never true Within the past 12 months, did you worry whether your food would run out before you got money to buy more?: Never true Do you have trouble paying for medicines?: No Do you have trouble getting transportation to medical appointments?: No Do you have trouble paying your heating and electricity bill?: No Do you have trouble taking care of your child, family member or friend?: No Do you have trouble with day-to-day activities such as bathing, preparing meals, shopping, managing finances, etc.?: No Are you currently unemployed and looking for a job?: No Are you interested in more education?: No Please select the resources that you would like help with: None Currently or been in a relationship where the following occur: no concerns reported AUDIT C Alcohol Use Questionnaire (AUDIT-C) 1. How often do you have a drink containing alcohol?: Never 3. How often do you have six or more drinks on one occasion?: Never Total Score: 0 Score Reviewed/Action Taken: Yes DESHAUN-7 AMB Questionnaire DESHAUN-7 Date DESHAUN - 7 assessed: 07/09/23 Feeling nervous, anxious, or on edge: 1 = Several days Not being able to stop or control worryin = Not at all Worrying too much about different things: 0 = Not at all Trouble relaxin = Not at all Being so restless that it is hard to sit still: 0 = Not at all Becoming easily annoyed or irritable: 1 = Several days Feeling afraid as if something awful might happen: 0 = Not at all Total DESHAUN-7 score (0-4 normal; 5-9 mild; 10-14 moderate; 15-21 severe): 2 Source: Developed by Drs. Matt Munoz, Halina Moscoso, Luis Mckeon and colleagues, with an educational danika from [employer]. DESHAUN-7 Assessment Billing DESHAUN-7 Assessment Tool: DESHAUN-7 Assessment 17833 Review of Systems Const Denies chills, Denies fatigue, Denies fever(s), Denies headache(s), Denies malaise and Denies weakness Eyes Denies blurry vision, Denies change in vision, Denies irritation and Denies itchy eyes ENT Denies dysphagia, Denies dizziness, Denies otalgia, Denies headache(s), Denies nasal congestion, Denies neck pain, Denies odynophagia and Denies sore throat Card Denies chest pain, Denies rapid heart rate, Denies irregular heart rhythm, Denies palpitations and Denies dyspnea Resp Denies chest congestion, Denies cough, Denies dyspnea and Denies wheezing GI Denies abdominal pain, Denies bloating, Denies constipation, Denies dysphagia, Denies heartburn, Denies diarrhea, Denies nausea, Denies odynophagia and Denies vomiting Denies hematuria, Denies difficulty urinating, Denies dysuria, Denies urinary frequency and Denies urinary urgency Musc Denies back pain, Denies arthralgias, Denies joint swelling, Denies muscle weakness and Denies neck pain Skin/Breast Denies change in pigmentation, Reports rash (notes that skin on both lower legs are getting darker ) and Denies unusual bruising Neuro Denies dizziness, Denies headache(s), Denies paresthesias and Denies weakness Endo Denies fatigue and Denies palpitations Nico/Lymph Details: (+) on and off bilateral lower extremity swelling and pain Aller/Immun Denies itchy eyes and Denies wheezing Physical exam (Primary Care) Vital Signs: Last Vital Signs Pulse 69 07/09/23 14:09 BP 120/86 07/09/23 14:09 Pulse Ox 97 07/09/23 14:09 Oxygen Delivery Method Room Air 07/09/23 14:09 BMI result Body Mass Index 33.8 Tobacco/Smoking Status: Tobacco use Status Tobacco use date assessed 07/09/23 07/09/23 14:12 Patient Tobacco Use Status Never used Tobacco 07/09/23 14:12 e-Cigarette/Vaping Use Never Used 07/09/23 14:12 PHQ-9: PHQ-9 Score PHQ-9: Total score 1 07/09/23 14:12 Depression Screening Interpretation: Negative Thrive Assessment: Date of Thrive Assessment Date Thrive assessed 07/09/23 07/09/23 14:12 Currently or been in a relationship where the following occur: no concerns reported Const General: no acute distress, alert and awake Orientation/consciousness: patient oriented x3 HENMT Head: Yes normocephalic and Yes atraumatic Ears: external ears normal, TM's normal bilaterally and EAC's normal General nose exam: No nasal discharge present Face and sinus: Yes normal facial exam and Yes sinuses nontender Teeth and gingiva: dentition normal Throat: Yes posterior oropharynx normal and Yes tonsils normal (no TP congestion) Eyes Eyelids: Yes eyelids normal Conjunctivae: conjunctivae normal Pupils: Equal, round and reactive pupils present EOM: EOMs intact bilaterally Neck Neck: Yes no lymphadenopathy and Yes supple Thyroid: Thyroid normal Resp Auscultation: clear to auscultation bilaterally, no rales and no wheezes Cardio Rate: regular rate Rhythm: regular rhythm Heart sounds: no murmurs GI Palpation (GI): Soft to palpation, nontender and No hepatosplenomegaly present Auscultation: normal bowel sounds General: Yes no CVA tenderness Back/Spine/Pelvis Back: no CVA tenderness Thoracic/Lumbar Spine: thoracic and lumbar spine normal to inspection Skin Lesions: no lesions Rashes: no rashes Neuro General: patient oriented x3, moves all extremities, no focal motor deficits and CN's II-XI intact bilaterally Cranial nerves: Yes Equal, round and reactive pupils present Cognition (Neuro): normal cognition Gait exam (Neuro): Normal gait present Extrem Other: (+) hyperpigmented skin changes noted over the distal half of both lower legs General: No clubbing, No cyanosis and Yes edema (trace edema bilaterally over both lower extremities) Results Reviewed Results Reviewed: Laboratory Tests 11/28/22 07/03/23 07/03/23 16:08 12:18 12:27 WBC 7.7 Hgb 13.1 L Hct 40.3 L Plt Count 172 Sodium Potassium Creatinine Estimated GFR Fasting Glucose Hemoglobin A1c % Calcium Iron TIBC % Saturation AST ALT Triglycerides Cholesterol LDL Cholesterol, Calc HDL Cholesterol PSA Screen Vitamin B12 204 25-OH Vitamin D Total TSH Ur Specific [place] 1.020 Urine Protein Negative Urine Glucose (UA) Negative Urine Blood Negative 07/03/23 07/03/23 07/03/23 12:27 12:27 12:27 WBC Hgb Hct Plt Count Sodium 142 Potassium 4.4 Creatinine 1.03 Estimated GFR > 60 Fasting Glucose 93 Hemoglobin A1c % 5.3 Calcium 9.6 Iron 51 TIBC 323 % Saturation 16 AST 27 ALT 22 Triglycerides 153 H Cholesterol 189 LDL Cholesterol, Calc 106 H HDL Cholesterol 53 PSA Screen 3.60 Vitamin B12 25-OH Vitamin D Total 36.5 TSH 1.38 Ur Specific [place] Urine Protein Urine Glucose (UA) Urine Blood Assessment and Plan Assessment & Plan (1) Annual physical exam: Code(s): Z00.00 - Encounter for general adult medical examination without abnormal findings Plan: Results of his labs done last week reviewed and discussed with patient He will be due for a repeat colonoscopy next year (2023) due to poor prep when he had his last one done in [address] Green (2) Asthma: Code(s): J45.909 - Unspecified asthma, uncomplicated Qualifiers: Asthma severity: mild Asthma persistence: intermittent Asthma complication type: uncomplicated Qualified Code(s): J45.20 - Mild intermittent asthma, uncomplicated Plan: Stable lately Continue Albuterol HFA 2 puffs 4 times a day as needed and DuoNeb inhalation solution via nebulizer Q 6 hours PRN (3) Allergic rhinitis: Code(s): J30.9 - Allergic rhinitis, unspecified Qualifiers: Allergic rhinitis trigger: unspecified Allergic rhinitis seasonality: unspecified Qualified Code(s): J30.9 - Allergic rhinitis, unspecified Plan: Continue Fluticasone 50 mcg nasal spray QD PRN (4) Impaired glucose tolerance: Code(s): R73.02 - Impaired glucose tolerance (oral) Plan: HgbA1c was again normal at 5.3% on his labs done last week Reinforced low calorie diet /exercise as tolerated (5) Anemia: Code(s): D64.9 - Anemia, unspecified Qualifiers: Anemia type: unspecified type Qualified Code(s): D64.9 - Anemia, unspecified Plan: Is still mildly anemic on his recent CBC done last week Iron studies done last week came back normal; his B12 level was noted to be low when checked earlier this year Will start him on Vitamin B12 1000 mcg QD for now Screening colonoscopy done a couple of years ago in December 2020 revealed a couple of polyps that were removed; bowel prep was poor but colonoscopy was otherwise mostly normal Will continue to monitor his CBC regularly (6) GERD (gastroesophageal reflux disease): Code(s): K21.9 - Gastro-esophageal reflux disease without esophagitis Qualifiers: Esophagitis presence: without esophagitis Qualified Code(s): K21.9 - Gastro-esophageal reflux disease without esophagitis Plan: Dietary restrictions reinforced Continue Famotidine 40 mg Q HS (7) Irritable bowel syndrome with both constipation and diarrhea: Code(s): K58.2 - Mixed irritable bowel syndrome Plan: Continue Dicyclomine 20 mg QID PRN Follow up with GI as scheduled (8) Memory impairment: Code(s): R41.3 - Other amnesia Plan: Was seen by neurology for evaluation back in November 2022 and was advised that his memory issues are most likely due to MCI but he was recommended to get an EEG done as well as a head CT without contrast Head CT done in January 2023 revealed (+) chronic microvascular ischemic changes and there is mild diffuse volume loss EEG done with neurology a few months ago reportedly came back normal (9) Vision impairment: Code(s): H54.7 - Unspecified visual loss Plan: He was seen and evaluated by Dr. [facility] a couple of months ago in October 2022 and advised that his vision problems are mostly due to cataracts and nuclear sclerosis and he is going to be scheduled for cataract extraction with IOL of both eyes (one eye at a time) soon Follow up with ophthalmology as scheduled (10) Vitamin D deficiency: Code(s): E55.9 - Vitamin D deficiency, unspecified Plan: Corrected - continue Vitamin D3 2000 units QD (11) Varicose veins of bilateral lower extremities with pain: Code(s): I83.813 - Varicose veins of bilateral lower extremities with pain Plan: Will refer him to vascular surgery for further evaluation and management (12) Dermatitis: Code(s): L30.9 - Dermatitis, unspecified Plan: Continue Triamcinolone acetonide 0.025% cream apply to affected areas TID PRN (13) Insomnia: Code(s): G47.00 - Insomnia, unspecified Qualifiers: Insomnia type: unspecified Qualified Code(s): G47.00 - Insomnia, unspecified Plan: Sleep hygiene reinforced Continue Trazodone 50 mg Q HS PRN (14) Anxiety: Code(s): F41.9 - Anxiety disorder, unspecified Plan: Continue Lorazepam 0.5 mg 2 to 3 times a day as needed and Citalopram 10 mg QD Advised to call if his anxiety persists or gets worse despite Rx (15) Obesity (BMI 30-39.9): Code(s): E66.9 - Obesity, unspecified Plan: Reinforced diet/exercise as tolerated/lose weight Plan Follow up in 6 months Orders: Orders Vitamin B12 and Folate 6 Months E53.8 - Deficiency of other specified B group vitamins Comprehensive [place]. Panel Fast 6 Months E78.00 - Pure hypercholesterolemia, unspecified Lipid Panel 6 Months E78.00 - Pure hypercholesterolemia, unspecified Vitamin D 25-OH Total 6 Months E55.9 - Vitamin D deficiency, unspecified Complete Blood Count Auto Diff 6 Months I10 - Essential (primary) hypertension UA CC w/rflx Micro + Cult 6 Months R30.0 - Dysuria Referrals Vascular Surgery Referral I83.813 - Varicose veins of bilateral lower extremities with pain Medications: New cyanocobalamin (vitamin B-12) 1,000 mcg PO DAILY 90 days 90 tabs 0RF Coding Level of Care Code Est Pt Prev Care 40-64y(16623) Diagnoses Annual physical exam Z00.00 Asthma J45.20 Asthma severity: mild Asthma persistence: intermittent Asthma complication type: uncomplicated Allergic rhinitis J30.9 Allergic rhinitis trigger: unspecified Allergic rhinitis seasonality: unspecified Impaired glucose tolerance R73.02 Anemia D64.9 Anemia type: unspecified type GERD (gastroesophageal reflux disease) K21.9 Esophagitis presence: without esophagitis Irritable bowel syndrome with both constipation and diarrhea K58.2 Memory impairment R41.3 Vision impairment H54.7 Vitamin D deficiency E55.9 Varicose veins of bilateral lower extremities with pain I83.813 Dermatitis L30.9 Insomnia G47.00 Insomnia type: unspecified Anxiety F41.9 Obesity (BMI 30-39.9) E66.9 Additional Codes DESHAUN-7 Assessment Billing - DESHAUN-7 Assessment Tool: DESHAUN-7 Assessment [id number] ([id number])
== END 2023-07-09 14:57 | disposition home or self-care (01) ==
PROVIDERS: PCP Internal Medicine; Visit Provider Internal Medicine
DX: Z00.00 Encounter for general adult medical examination without abnormal findings (principal); J45.20 Mild intermittent asthma, uncomplicated; K21.9 Gastro-esophageal reflux disease without esophagitis; K58.2 Mixed irritable bowel syndrome; E55.9 Vitamin D deficiency, unspecified; F41.9 Anxiety disorder, unspecified; J30.9 Allergic rhinitis, unspecified; R73.02 Impaired glucose tolerance (oral); D64.9 Anemia, unspecified; R41.3 Other amnesia; H54.7 Unspecified visual loss; I83.813 Varicose veins of bilateral lower extremities with pain
CPT/HCPCS: 99396

== ENCOUNTER 2023-09-03 13:37 | Outpatient (AMB) | payer MEDICARE, MEDICAID, SELFPAY ==
--- NOTE | 2023-09-03 13:42 | A.OFFVIS_ITS ---
Intake Vital Signs 09/03/23 13:46 Height 5 ft 10 in Weight 238 lb 1.588 oz BMI 34.2 BP 134/77 Blood Pressure Location Lt brachial Position Sitting Pulse 75 Intake Visit Reasons: 6 Month Fu Intake Note: Patient present to in office visit today in 6 months follow up of GERD. CC: Patient reports he went to see an ENT who prescribed him with medications for hoarseness but he ran out, and ENT told him that medication was only temporarily. Patient believes medication was Omeprazole. Denies other GI symptoms today. Credit Or Loans Officer Required: Yes Credit Or Loans Officer Name: Fady Archer Accompanied by: Self / Same As Patient Allergies latex Allergy (Verified 09/04/23 13:35) Rash HPI 6 Month Fu HPI Details Assessment & Plan (1) GERD (gastroesophageal reflux diseas e): Code(s): K21.9 - Gastro-esophageal reflux disease without esophagitis Qualifiers: Esophagitis presence: without esophagitis Qualified Code(s): K21.9 - Gastro-esophageal reflux disease without esophagitis Plan: YAKUT #Angie live He feels that his conditions are controlled on his dicyclomine and famotidine. He prefers using the 2, 10 mg capsules of the dicyclomine instead of the 20 mg tablet because it dissolves in taste bad is mouth. He is due for repeat colonoscopy, his last was in 2020 and he was not cleared but they found 2 TA's. He denies any problems with the prep, I drank all of it and took the pills. BUT then he admits he ate the day before the colonoscopy! We thoroughly reviewed the prep and procedure again and he restates/repeat verbalizes understanding saying ?I will not eat because if I did write last time I would have to be doing it now. ? There are no prior problems with anesthesia or sedation. He says that his asthma is well controlled and he denies any cardiac problems. There are no infectious disease problems. Again he had multiple tubular adenoma on his 2020 scope but was not sufficiently clear. I will see him in 6 months and again after the colonoscopy. (2) Tubular adenoma of colon: Comment: 2020 scope large TA is repeat 3 years Code(s): D12.6 - Benign neoplasm of colon, unspecified (3) Irritable bowel syndrome with both c onstipation and diarrhea: Code(s): K58.2 - Mixed irritable bowel syndrome (4) Hx of eye surgery: Code(s): Z98.890 - Other specified postprocedural states (5) Pre-op evaluation: Code(s): Z01.818 - Encounter for other preprocedural examination Medications: New peg 3350-electroly elder 236-22.74-6.74 -5.86 gram (Golyt baldo) until feca l effluent is barak r; do not exceed a total volume of 2 ,000 mL 240 mL PO Q10M 1 day 4,000 mL 0RF Z12.11 - Encounter for screening for malignant neoplas m of colon Refilled famotidine 40 mg PO BEDTIME 90 tabs 1RF K21.9 - Gastro-eso phageal reflux dis ease without esoph agitis dicyclomine 20 mg PO QID 360 tabs 1RF K58.2 - Mixed irri table bowel syndro me COLONOSCOPY BIOPSY TODAY'S VISIT YAKUT #[id number] He says he saw an ENT provider who gave me a pill that did well for me for a while, but then I ran out. He does not know what the pill was. I find the ENT note and it was omeprazole, so I will start this and he can keep the famotidine for breakthrough. He continues on his bentyl and he finds that when he has tried to stop it he became constipated. I tell him this is ok to continue this and he does not need to stop it. ROV 6 mos and after colonoscopy PFSH Medical History Dermatitis Vitamin D deficiency Abdominal pain Dyspnea Anxiety Allergic rhinitis Anemia Obesity (BMI 30-39.9) Pruritic rash Pain of right heel Bilateral ankle pain Shoulder pain, bilateral COVID-19 Asthma Surgical History Hx of colonoscopy Family History Father Cancer Mother No problems noted. Son No problems noted. Daughter No problems noted. Brother No problems noted. Sister No problems noted. Other Diabetes HTN (hypertension) Social History Housing: Apartment Alcohol intake: current Alcohol intake frequency: a few times a week Alcohol type: beer and hard liquor Patient Tobacco Use Status: Never used Tobacco e-Cigarette/Vaping Use: Never Used Second Hand Smoke Exposure: Yes service: No Current occupational status: disabled Cognitive needs: No Hearing needs: No Vision needs: Yes Review of Systems Const Denies fatigue, Denies fever(s), Denies night sweats, Denies poor appetite and Denies weight loss Eyes Details: glasses Reports requires corrective lenses ENT Reports Normal hearing present, Denies dental pain, Denies dysphagia, Denies hearing loss, Denies mouth pain, Denies odynophagia, Denies throat swelling, Denies tongue swelling and Reports other (Dentition adequate) Card Reports no additional complaints Resp Reports no additional complaints GI Denies abdominal pain, Denies melena, Denies bloating, Denies hematochezia, Denies constipation, Denies GI cramping, Denies dysphagia, Denies excessive flatus, Denies early satiety, Denies heartburn, Reports diarrhea, Denies nausea, Denies odynophagia, Denies vomiting and Denies hematemesis Skin/Breast Denies pruritus, Denies lesions, Denies rash and Denies jaundice Neuro Reports Normal hearing present and Denies Abnormal speech present Endo Denies fatigue Aller/Immun Denies throat swelling and Denies tongue swelling Physical Exam Vital Signs: Last Vital Signs Pulse 75 09/03/23 13:46 BP 134/77 09/03/23 13:46 BMI result Body Mass Index 34.2 Const General: cooperative, no acute distress, well developed and well groomed Nutritional Appearance: well nourished and obese centrally obese Orientation/consciousness: oriented to person, oriented to place and oriented to time Limitations: language barrier HEENT Head: Yes normocephalic and Yes atraumatic Eyes General: appearance normal, both eyes and all related structures Pupils: Equal, round and reactive pupils present Neck Neck: Yes normal visual inspection and Yes no lymphadenopathy Thyroid: Thyroid normal Resp Effort & Inspection: normal respiratory effort and able to speak in complete sentences Auscultation: clear to auscultation bilaterally Cardio Rate: regular rate Rhythm: regular rhythm Heart sounds: Normal, physiologic split S2 sound present Peripheral pulses: radial pulses present and posterior tibial pulses present GI Inspection: No distended, No Abdominal panniculus present and Yes obesity Palpation (GI): Soft to palpation, nontender, no guarding, not rigid and No hepatosplenomegaly present Percussion: Yes normal to percussion Auscultation: normal bowel sounds Rectal Exam - Male: Yes deferred Skin General skin exam: no rashes or lesions noted, turgor normal, skin not dry, no jaundice, No spider nevi and no striae Rashes: no rashes Nails: normal Neuro General: oriented to person, oriented to place and oriented to time Cranial nerves: Yes Equal, round and reactive pupils present and Yes Normal hearing present Speech: No Abnormal speech present Extrem General: Yes normal to inspection, No clubbing, No cyanosis and No edema Psych Appearance: grossly normal and well kempt Mental Status: mental status grossly normal Speech and movement: Normal speech and movement present Affect: normal affect Attitude: cooperative Thought process: Normal thought process present and not confabulating Thought content: Normal thought content present Insight: Fair insight present (Psych) Judgement: Fair judgement present (Psych) Assessment & Plan Assessment & Plan (1) Irritable bowel syndrome with both constipation and diarrhea: Code(s): K58.2 - Mixed irritable bowel syndrome (2) GERD (gastroesophageal reflux disease): Code(s): K21.9 - Gastro-esophageal reflux disease without esophagitis Qualifiers: Esophagitis presence: without esophagitis Qualified Code(s): K21.9 - Gastro-esophageal reflux disease without esophagitis (3) Tubular adenoma of colon: Comment: 2020 scope large TA is repeat 3 years Code(s): D12.6 - Benign neoplasm of colon, unspecified Plan COLONOSCOPY BIOPSY TODAY'S VISIT YAKUT #[id number] He says he saw an ENT provider who gave me a pill that did well for me for a while, but then I ran out. He does not know what the pill was. I find the ENT note and it was omeprazole, so I will start this and he can keep the famotidine for breakthrough. He continues on his bentyl and he finds that when he has tried to stop it he became constipated. I tell him this is ok to continue this and he does not need to stop it. ROV 6 mos and after colonoscopy Medications: New sodium,potassium,mag sulfates 17.5-3.13-1.6 gram (Suprep Bowel Prep Kit) 480 mL orally; 354 mL 0RF omeprazole 40 mg PO DAILY 30 caps 6RF 30 days Refilled dicyclomine 20 mg PO QID 360 tabs 1RF K58.2 - Mixed irritable bowel syndrome famotidine 40 mg PO BEDTIME 90 tabs 1RF K21.9 - Gastro-esophageal reflux disease without esophagitis Coding Level of Care Code Est Pt Level 3 (22960) Diagnoses Irritable bowel syndrome with both constipation and diarrhea K58.2 Gastroesophageal reflux disease without esophagitis K21.9 Esophagitis presence: without esophagitis Tubular adenoma of colon D12.6
[2023-09-03 13:46] VITALS: BP 134/77; PULSE 75; BMI 34.2
== END 2023-09-03 14:57 | disposition home or self-care (01) ==
PROVIDERS: PCP Internal Medicine; Visit Provider Nurse Practitioner
DX: K58.2 Mixed irritable bowel syndrome (principal); K21.9 Gastro-esophageal reflux disease without esophagitis; D12.6 Benign neoplasm of colon, unspecified
CPT/HCPCS: 99213

== ENCOUNTER → 2023-09-03 13:37 | Outpatient (BNVA) | payer MEDICARE, MEDICAID, SELFPAY | PROVIDERS: PCP Internal Medicine; Visit Provider Nurse Practitioner | DX: K21.9 Gastro-esophageal reflux disease without esophagitis (principal); K58.2 Mixed irritable bowel syndrome; Z86.010 Personal history of colon polyps | CPT/HCPCS: 99212 ==

== ENCOUNTER 2023-09-04 13:24 | Outpatient (AMB) | payer MEDICARE, MEDICAID, SELFPAY ==
--- NOTE | 2023-09-04 13:32 | A.OFFVIS_ITS ---
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 He seen a specialist once and they gave him cortisone injectons in hisfeet wich help for a while but the pain and swelling is back Healthcare Applications Analyst Required: Yes Healthcare Applications Analyst Name: guy baez Information Interpreted: clinical only Accompanied by: Spouse Allergies latex Allergy (Verified 09/04/23 13:35) Rash HPI CUSTOMER ENERGY SPECIALIST/PCP re-referral VV, last seen 09/26/20 HPI Details Very pleasant 63-year-old gentleman who was originally seen by us in August of 2020 presents for follow-up regarding venous insufficiency. He notes that he has swelling and some bulging veins in the left lower extremity. They have been a source of pain and discomfort for him. He is also concerned about the discoloration as well. He notes that he has significant foot pain and has been treated by Podiatry with what appears to be steroid injections. They were provided minimal relief. He now presents to us for vascular follow-up. [facility] Medical History Dermatitis Vitamin D deficiency Abdominal pain Dyspnea Anxiety Allergic rhinitis Anemia Obesity (BMI 30-39.9) Pruritic rash Pain of right heel Bilateral ankle pain Shoulder pain, bilateral COVID-19 Asthma Surgical History Hx of colonoscopy Family History Father Cancer Mother No problems noted. Son No problems noted. Daughter No problems noted. Brother No problems noted. Sister No problems noted. Other Diabetes HTN (hypertension) Social History Housing: Apartment Alcohol intake: current Alcohol intake frequency: a few times a week Alcohol type: beer and hard liquor Patient Tobacco Use Status: Never used Tobacco e-Cigarette/Vaping Use: Never Used Second Hand Smoke Exposure: Yes service: No Current occupational status: disabled Cognitive needs: No Hearing needs: No Vision needs: Yes Review of Systems Const Reports as per HPI ENT Reports no additional complaints Card Denies chest pain, Denies chest pain at rest and Denies chest pain with activity Resp Denies chest congestion and Denies cough GI Reports no additional complaints Musc Details: pain over varicosities, aching of lower extremities, swelling, cramping, heaviness and tiredness, itching Denies abnormal gait Skin/Breast Reports pruritus and Denies wounds Neuro Reports no additional complaints and Denies abnormal gait Psych Denies no additional complaints Physical Exam Vital Signs: BMI result Body Mass Index 34.1 Const General: cooperative, healthy appearing and comfortable Orientation/consciousness: oriented to person, oriented to place and oriented to time Neck Carotids: no bruits Chest Chest palpation & inspection: normal inspection of the chest and normal palpation of entire chest wall Resp Effort & Inspection: normal respiratory effort and able to speak in complete sentences Cardio Rate: regular rate Heart sounds: S1 normal heart sound present and S2 normal heart sound present Peripheral pulses: Peripheral pulses 2+ throughout GI Inspection: Yes normal to inspection Skin Other: +2 edema, skin color changes left greater than right General skin exam: dry skin Neuro General: oriented to person, oriented to place and oriented to time Extrem Right lower extremity: full ROM, normal capillary refill and edema Left lower extremity: full ROM, normal capillary refill and edema Psych Mental Status: mental status grossly normal Results Reviewed Results Reviewed: Brief summary of venous insufficiency testing is as follows dated 08/28/2020: right great saphenous vein: negative right small saphenous vein: negative right accessory vein: none present left great saphenous vein: negative left small saphenous vein: negative left accessory vein: none present Please note there is no evidence of any venous aneurysms or significant tortuosity Assessment & Plan Assessment & Plan (1) Varicose veins of left lower extremity with inflammation: Code(s): I83.12 - Varicose veins of left lower extremity with inflammation Plan: In short patient does have evidence of venous insufficiency. This may have progressed from the past where it was negative. We did discuss routine conservative measures including compression elevation and exercise. I have taken the liberty of ordering repeat venous insufficiency testing. The patient will follow up with us after testing. Thank you for allowing us to assist in his care. Orders: Orders US venous duplex LE BI 1 Week I83.12 - Varicose veins of left lower extremity with inflammation Coding Level of Care Code Est Pt Level 4 (08593) Diagnoses Varicose veins of left lower extremity with inflammation I83.12
[2023-09-04 13:35] VITALS: BMI 34.1
== END 2023-09-04 13:52 | disposition home or self-care (01) ==
PROVIDERS: PCP Internal Medicine; Visit Provider Surgery Vascular Surgery
DX: I83.12 Varicose veins of left lower extremity with inflammation (principal)
CPT/HCPCS: 99213

== ENCOUNTER → 2023-09-04 13:24 | Outpatient (BNVA) | payer MEDICARE, MEDICAID, SELFPAY | PROVIDERS: PCP Internal Medicine; Visit Provider Surgery Vascular Surgery | DX: I83.12 Varicose veins of left lower extremity with inflammation (principal) | CPT/HCPCS: 99212 ==

== ENCOUNTER 2023-09-17 10:29 | Outpatient (REF) | payer MEDICARE, MEDICAID, SELFPAY ==
--- NOTE | ~2023-09-17 | US_ITS ---
EXAMINATION: US LOWER EXTREMITY VENOUS (REFLUX EXAM), BILATERAL CLINICAL INDICATION: Chronic venous insufficiency with lower extremity varicose veins and inflammation COMPARISON: Ultrasound from 08/28/2020 TECHNIQUE: Color flow triplex imaging and compression Doppler was performed to evaluate both the deep and the superficial systems bilaterally. To evaluate the superficial system, the examination was performed in the upright position. Color-flow Doppler ultrasound and compression ultrasound were utilized. In addition, maneuvers were utilized to demonstrate reflux. FINDINGS: 1. DEEP VENOUS ULTRASOUND OF THE RIGHT LOWER EXTREMITY: Common Femoral Vein: Compressible, normal respiratory variation and augmented flow. Femoral Vein: Compressible, normal color flow and augmentation. Popliteal Vein: Compressible, normal augmentation. Deep Reflux: There is no evidence of reflux in the deep system in either the common femoral vein or the popliteal vein. There is no evidence of a Cook's cyst. 2. SUPERFICIAL ULTRASOUND WITH DOPPLER OF RIGHT LOWER EXTREMITY: GREAT SAPHENOUS VEIN: Saphenofemoral Junction: 0.8 cm; Reflux: 0 ms Proximal Thigh: 0.4 cm; Reflux: 0 ms Mid Thigh: 0.3 cm; Reflux: 0 ms Above Knee: 0.3 cm; Reflux: 2784 ms At Knee: 0.3 cm; Reflux: 2548 ms Below Knee: 0.3 cm; Reflux: 0 ms Mid Calf: 0.2 cm; Reflux: 0 ms Ankle: 0.3 cm; Reflux: 0 ms DUPLICATED MEDIAL GREAT SAPHENOUS VEIN: Diameter: None imaged Reflux: NA DUPLICATED LATERAL GREAT SAPHENOUS VEIN: Diameter: 0.4 cm Reflux: 1392 ms SMALL SAPHENOUS VEIN: Proximal: 0.2 cm; Reflux: 0 ms Distal: 0.3 cm; Reflux: 0 ms VEIN OF GIACOMINI: Size: NA Reflux: NA PERFORATORS: Location: Posterior calf and mid SSV, proximal medial calf and distal medial calf Size: 0.3 cm Reflux: None VARICOSITIES: Location: Posterior calf off the SSV, proximal calf off the great saphenous vein, mid and distal calf off the great saphenous vein Size: 0.3 to 0.4 cm Reflux: Ranging from 400 ms to 1500 ms 3. DEEP VENOUS ULTRASOUND OF THE LEFT LOWER EXTREMITY: Common Femoral Vein: Compressible, normal respiratory variation and augmented flow. Femoral Vein: Compressible, normal color flow and augmentation. Popliteal Vein: Compressible, normal augmentation. Deep Reflux: There is no evidence of reflux in the deep system in either the common femoral vein or the popliteal vein. There is no evidence of a Cook's cyst. 4. SUPERFICIAL ULTRASOUND WITH DOPPLER OF LEFT LOWER EXTREMITY: GREAT SAPHENOUS VEIN: Saphenofemoral Junction: 1.0 cm; Reflux: 0 ms Proximal Thigh: 0.6 cm; Reflux: 0 ms Mid Thigh: 0.3 cm; Reflux: 1772 ms Above Knee: 0.3 cm; Reflux: 2272 ms At Knee: 0.4 cm; Reflux: 0 ms Below Knee: 0.3 cm; Reflux: 0 ms Mid Calf: 0.2 cm; Reflux: 556 ms Ankle: 0.4 cm; Reflux: 0 ms DUPLICATED MEDIAL GREAT SAPHENOUS VEIN: Diameter: None imaged Reflux: NA DUPLICATED LATERAL GREAT SAPHENOUS VEIN: Diameter: 0.7 cm Reflux: 2120 ms SMALL SAPHENOUS VEIN: Proximal: 0.3 cm; Reflux: 0 ms Distal: 0.3 cm; Reflux: 0 ms VEIN OF GIACOMINI: Size: NA Reflux: NA PERFORATORS: Location: Posterior calf into the small saphenous vein, proximal thigh, proximal calf and mid calf medially Size: 0.2 to 0.3 cm Reflux: Ranging from 0 ms to 996 ms VARICOSITIES: Location: Posterior calf off the small saphenous vein, medial knee, proximal calf and mid calf off the great saphenous vein Size: 0.3 to 0.4 cm Reflux: Ranging from 0 ms to 1752 ms US/US venous duplex LE BI IMPRESSION: Right: Segmental areas of reflux within the right great saphenous vein in the distal thigh and knee. Lateral duplicated great saphenous vein with severe reflux as described above. Multiple varicosities with reflux as described Left: Segmental areas of reflux in the left great saphenous vein in the mid and distal thigh and midcalf. Lateral duplicated great saphenous vein with severe reflux as described above. Multiple varicosities with reflux as described above
== END 2023-09-17 10:30 | disposition home or self-care (01) ==
LOC: HO.US 10:29
PROVIDERS: PCP Internal Medicine; Visit Provider Surgery Vascular Surgery
DX: I83.12 Varicose veins of left lower extremity with inflammation (principal)
CPT/HCPCS: 93970

== ENCOUNTER 2023-10-21 13:41 | Outpatient (AMB) | payer MEDICARE, MEDICAID, SELFPAY ==
--- NOTE | 2023-10-21 13:48 | A.OFFVIS_ITS ---
Intake Intake Visit Reasons: FU Venous Duplex US Intake Note: Pt here for US fallow up on 09/17/23 He states thathe is still having the same pain and swelling and nubness in both legs there are equalynthe same Stem Crusher Name: guy baez Information Interpreted: non-clinical & clinical Accompanied by: Spouse Allergies latex Allergy (Verified 10/21/23 13:51) Rash HPI FU Venous Duplex US HPI Details pleasant 63-year-old gentleman presents for follow-up regarding venous insufficiency. He had seen us back in August 2020 and his legs have continued to progress. He is concerned about his left leg more so than his right they h ave been swollen a source of discomfort and he does have some large varicosities which are a source of concern for him. He now presents for follow-up with venous insufficiency testing. [facility] Medical History Dermatitis Vitamin D deficiency Abdominal pain Dyspnea Anxiety Allergic rhinitis Anemia Obesity (BMI 30-39.9) Pruritic rash Pain of right heel Bilateral ankle pain Shoulder pain, bilateral COVID-19 Asthma Surgical History Hx of colonoscopy Family History Father Cancer Mother No problems noted. Son No problems noted. Daughter No problems noted. Brother No problems noted. Sister No problems noted. Other Diabetes HTN (hypertension) Social History Housing: Apartment Alcohol intake: current Alcohol intake frequency: a few times a week Alcohol type: beer and hard liquor Patient Tobacco Use Status: Never used Tobacco e-Cigarette/Vaping Use: Never Used Second Hand Smoke Exposure: Yes service: No Current occupational status: disabled Cognitive needs: No Hearing needs: No Vision needs: Yes Review of Systems Const Reports as per HPI ENT Reports no additional complaints Card Denies chest pain, Denies chest pain at rest and Denies chest pain with activity Resp Denies chest congestion and Denies cough GI Reports no additional complaints Musc Details: pain over varicosities, aching of lower extremities, swelling, cramping, heaviness and tiredness, itching Denies abnormal gait Skin/Breast Reports pruritus and Denies wounds Neuro Reports no additional complaints and Denies abnormal gait Psych Denies no additional complaints Physical Exam Const General: cooperative, healthy appearing and comfortable Orientation/consciousness: oriented to person, oriented to place and oriented to time Neck Carotids: no bruits Chest Chest palpation & inspection: normal inspection of the chest and normal palpation of entire chest wall Resp Effort & Inspection: normal respiratory effort and able to speak in complete sentences Cardio Rate: regular rate Heart sounds: S1 normal heart sound present and S2 normal heart sound present Peripheral pulses: Peripheral pulses 2+ throughout GI Inspection: Yes normal to inspection Skin Other: +2 edema, large rope-like varicosities greater than 4 mm CEAP Classification C4 - skin color changes Ep - Etiology Primary As - superficial veins P - reflux General skin exam: dry skin Neuro General: oriented to person, oriented to place and oriented to time Extrem Right lower extremity: full ROM, normal capillary refill and edema Left lower extremity: full ROM, normal capillary refill and edema Psych Mental Status: mental status grossly normal Results Reviewed Results Reviewed: Brief summary of venous insufficiency testing is as follows: right great saphenous vein: Positive right small saphenous vein: negative right accessory vein: none present left great saphenous vein: positive left small saphenous vein: negative left accessory vein: none present Please note there is no evidence of any venous aneurysms or significant tortuosity Assessment & Plan Assessment & Plan (1) Varicose veins of left lower extremity with inflammation: Code(s): I83.12 - Varicose veins of left lower extremity with inflammation Plan: This patient has varicose veins with inflammation. They continue to be a source of discomfort for the patient. The patient has tried conservative treatment with compression, leg elevation and exercise program for over 3 months time. They have been compliant with all treatment. This has provided minimal relief for the patient. I do not anticipate this course of treatment will alter the underlying etiology. The patient has been scheduled for lower extremity venous treatment inclusive of --- left great saphenous vein Cyanoacralate ablation. Risks, benefits, and complications of this procedure has been discussed in detail with the patient including but not limited to bleeding, infection, and the development of a DVT. The patient has demonstrated a clear understanding and has consented. We will schedule the patient as soon as possible. Thank you for allowing us to participate in this patient's care. If there are any questions or concerns please do not hesitate to contact us. Coding Level of Care Code Est Pt Level 4 (26896) Diagnoses Varicose veins of left lower extremity with inflammation I83.12
== END 2023-10-21 14:17 | disposition home or self-care (01) ==
PROVIDERS: PCP Internal Medicine; Visit Provider Surgery Vascular Surgery
DX: I83.12 Varicose veins of left lower extremity with inflammation (principal)
CPT/HCPCS: 99214

== ENCOUNTER → 2023-10-21 13:41 | Outpatient (BNVA) | payer MEDICARE, MEDICAID, SELFPAY | PROVIDERS: PCP Internal Medicine; Visit Provider Surgery Vascular Surgery | DX: I83.12 Varicose veins of left lower extremity with inflammation (principal) | CPT/HCPCS: 99212 ==

== ENCOUNTER 2023-12-12 12:41 | Outpatient (AMB) | payer OTHER, SELFPAY ==
[2023-12-12 13:23] VITALS: BMI 34.1
--- NOTE | 2023-12-12 13:23 | A.OFFVIS_ITS ---
Intake Vital Signs 12/12/23 13:23 Height 5 ft 10 in Weight 238 lb BMI 34.1 Intake Visit Reasons: Left GSV Venaseal Allergies latex Allergy (Verified 12/12/23 13:24) Rash PFSH Medical History Dermatitis Vitamin D deficiency Abdominal pain Dyspnea Anxiety Allergic rhinitis Anemia Obesity (BMI 30-39.9) Pruritic rash Pain of right heel Bilateral ankle pain Shoulder pain, bilateral COVID-19 Asthma Surgical History Hx of colonoscopy Family History Father Cancer Mother No problems noted. Son No problems noted. Daughter No problems noted. Brother No problems noted. Sister No problems noted. Other Diabetes HTN (hypertension) Social History Housing: Apartment Alcohol intake: current Alcohol intake frequency: a few times a week Alcohol type: beer and hard liquor Patient Tobacco Use Status: Never used Tobacco e-Cigarette/Vaping Use: Never Used Second Hand Smoke Exposure: Yes service: No Current occupational status: disabled Cognitive needs: No Hearing needs: No Vision needs: Yes Physical Exam Vital Signs: BMI result Body Mass Index 34.1 Office Procedures Vascular Office Procedure Details Details: Diagnosis: Left Leg varicose veins with inflammation Procedure: Endovenous Ablation of the left Great Saphenous Vein with VenaSeal Closure System Anesthesia: Local infiltration 5 cc, Estimated Blood Loss: min Specimen: none Duplex ultrasound was used to map out the insufficient saphenous vein, and access was determined and marked on the overlying skin. The depth and diameter of the vein(s) to be treated was documented. The patient was placed supine on the procedure table and the leg was prepped and draped using sterile technique. Ultasound guidance was again used to localize the access site. 1% lidocaine was injected as a local anesthetic in the subcutaneous tissues at the target location in the GSV in the lower leg. Using ultrasound guidance, access was gained at this location with the 19 gauge thin walled access needle and followed by introduction of a short guidewire, location confirmed with ultrasound. A small, 3 mm incision was made at the access site to allow for introduction and placement of the 7 Fr x7cm introducer/dilator. The dilator and guidewire were removed. The 0.035 guidewire from the VenaSeal kit was then introduced and positioned at the saphenofemoral junction using ultrasound guidance. The 80 cm 7 Fr introducer sheath/dilator was positioned 5cm from the saphenofemoral junction. The guidewire and dilator were removed, and the remaining sheath was flushed with sterile saline, with the syringe remaining in place prior to the next steps. The cyanoacrylate adhesive was precisely primed into the 5 F delivery catheter and this catheter/syringe combination was attached within the dispenser gun. This assembly was introduced through the 7F sheath and positioned 5 cm caudal of the saphenofemoral junction under ultrasound guidance. The steps from the IFU were followed for dispensing amounts, locations and compression times, 2 aliquots proximally with 3 minutes of compression, and 1 aliquot every 3 cm d istally with 30 sec of compression along the course of the vessel. Following the last injection and compression sequence, the catheter and introducer sheath were pulled out from the access site. Hemostasis was achieved with manual compression and an adhesive bandage was applied to the incision. Ultrasound confirmed complete coaptation and closure of the treated segments of the GSV, and the absence of any DVT at the saphenofemoral junction. Treatment time was approximately 6 minutes and the vein length treated was 35 cm. The drapes were removed and the patient cleaned and prepared for discharge. Post op ultrasound check is scheduled for 48-72 hours and the patient was given written post-op instructions. 92539 - Endoven Ther Chem Adhes 1st All charges added?: Procedure code (CPT) selection complete Assessment & Plan Assessment & Plan (1) Varicose veins of left lower extremity with inflammation: Comment: 12/12/2023 - left great saphenous vein Cyanoacralate ablation Code(s): I83.12 - Varicose veins of left lower extremity with inflammation Plan: See op note Coding Level of Care Code Procedure Only Diagnoses Varicose veins of left lower extremity with inflammation I83.12 CPT Codes Details - Vascular 3: 27189 - Endoven Ther Chem Adhes 1st ([id number])
== END 2023-12-12 14:50 | disposition home or self-care (01) ==
PROVIDERS: PCP Internal Medicine; Visit Provider Surgery Vascular Surgery
DX: I83.12 Varicose veins of left lower extremity with inflammation (principal)
CPT/HCPCS: 36482

== ENCOUNTER → 2023-12-12 12:41 | Outpatient (BNVA) | payer OTHER, MEDICAID, SELFPAY | PROVIDERS: PCP Internal Medicine; Visit Provider Surgery Vascular Surgery | DX: I83.12 Varicose veins of left lower extremity with inflammation (principal) | CPT/HCPCS: 36482 ==

== ENCOUNTER 2023-12-15 15:06 | Outpatient (REF) | payer OTHER, SELFPAY ==
--- NOTE | ~2023-12-15 | US_ITS ---
EXAMINATION: US VENOUS ULTRASOUND WITH DOPPLER LOWER EXTREMITY, LEFT CLINICAL INFORMATION: Pain in left leg, rule out DVT, status post left GSV Venaseal 12/12/2023 COMPARISON: None available. TECHNIQUE: Ultrasound of the deep veins is performed from the hip to the calf with compression sonography and color and pulse Doppler assessment. Spectral analysis with color-flow imaging is performed. FINDINGS: There is normal venous compression and respiratory variation and augmented flow. The visualized common femoral vein, femoral vein, profunda femoral vein, popliteal vein, and the trifurcation region shows no evidence of deep venous thrombosis. There is no popliteal fossa cyst. There is occlusion of the great saphenous vein at the proximal, mid, and distal thigh. Proximally, the occlusion of the great saphenous vein extends 2.9 cm from the saphenofemoral junction great saphenous vein at the knee and calf remaining patent. US/US venous duplex LE LT IMPRESSION: 1. No DVT demonstrated in the left lower extremity. 2. Long segment occlusion of the great saphenous vein at the left thigh without extension into the saphenofemoral junction. Great saphenous vein at the knee and calf remain patent; poorly with operative note.
== END 2023-12-15 15:07 | disposition home or self-care (01) ==
LOC: HO.US 15:06
PROVIDERS: PCP Internal Medicine; Visit Provider Surgery Vascular Surgery
DX: M79.605 Pain in left leg (principal)
CPT/HCPCS: 93971

== ENCOUNTER 2023-12-25 14:18 | Outpatient (AMB) | payer OTHER, SELFPAY ==
--- NOTE | 2023-12-25 14:22 | A.OFFVIS_ITS ---
Intake Vital Signs 12/25/23 14:23 Height 5 ft 10 in Weight 238 lb BMI 34.1 Intake Visit Reasons: 2 wk follow up Left GSV Venaseal 12/12/23 Intake Note: Patient presents for 2 week follow up left gsv venaseal on 12/12/23. He says for about a week after the procedure he could not bend his left leg. He states he can now but that he has some pain where the incision was; minimal swelling. He also mentioned having itching/discoloration on both shins and around both ankles would like to discuss possible rx for a cream/ointment. Allergies latex Allergy (Verified 12/25/23 14:26) Rash HPI 2 wk follow up Left GSV Venaseal 12/12/23 HPI Details Very pleasant 63-year-old gentleman presents for follow-up regarding venous insufficiency. Had seen us back in August of 2020. He subsequently had it progress and underwent left great saphenous vein Cyanoacralate ablation. He reports that the left leg has done significantly better. He is now concerned about the right lower extremity. He now presents for follow-up. [facility] Medical History Dermatitis Vitamin D deficiency Abdominal pain Dyspnea Anxiety Allergic rhinitis Anemia Obesity (BMI 30-39.9) Pruritic rash Pain of right heel Bilateral ankle pain Shoulder pain, bilateral COVID-19 Asthma Surgical History Hx of colonoscopy Family History Father Cancer Mother No problems noted. Son No problems noted. Daughter No problems noted. Brother No problems noted. Sister No problems noted. Other Diabetes HTN (hypertension) Social History Housing: Apartment Alcohol intake: current Alcohol intake frequency: a few times a week Alcohol type: beer and hard liquor Patient Tobacco Use Status: Never used Tobacco e-Cigarette/Vaping Use: Never Used Second Hand Smoke Exposure: Yes service: No Current occupational status: disabled Cognitive needs: No Hearing needs: No Vision needs: Yes Review of Systems Const Reports as per HPI ENT Reports no additional complaints Card Denies chest pain, Denies chest pain at rest and Denies chest pain with activity Resp Denies chest congestion and Denies cough GI Reports no additional complaints Musc Details: pain over varicosities, aching of lower extremities, swelling, cramping, heaviness and tiredness, itching Denies abnormal gait Skin/Breast Reports pruritus and Denies wounds Neuro Reports no additional complaints and Denies abnormal gait Psych Denies no additional complaints Physical Exam Vital Signs: BMI result Body Mass Index 34.1 Const General: cooperative, healthy appearing and comfortable Orientation/consciousness: oriented to person, oriented to place and oriented to time Neck Carotids: no bruits Chest Chest palpation & inspection: normal inspection of the chest and normal palpation of entire chest wall Resp Effort & Inspection: normal respiratory effort and able to speak in complete sentences Cardio Rate: regular rate Heart sounds: S1 normal heart sound present and S2 normal heart sound present Peripheral pulses: Peripheral pulses 2+ throughout GI Inspection: Yes normal to inspection Skin Other: +2 edema, large rope-like varicosities greater than 4 mm CEAP Classification C4 - skin color changes Ep - Etiology Primary As - superficial veins P - reflux General skin exam: dry skin Neuro General: oriented to person, oriented to place and oriented to time Extrem Right lower extremity: full ROM, normal capillary refill and edema Left lower extremity: full ROM, normal capillary refill and edema Psych Mental Status: mental status grossly normal Results Reviewed Results Reviewed: Brief summary of venous insufficiency testing is as follows: right great saphenous vein: Positive right small saphenous vein: negative right accessory vein: none present left great saphenous vein: Ablated left small saphenous vein: negative left accessory vein: none present Please note there is no evidence of any venous aneurysms or significant tortuosity Assessment & Plan Assessment & Plan (1) Varicose veins of right lower extremity with inflammation: Code(s): I83.11 - Varicose veins of right lower extremity with inflammation Plan: This patient has varicose veins with inflammation. They continue to be a source of discomfort for the patient. The patient has tried conservative treatment with compression, leg elevation and exercise program for over 3 months time. They have been compliant with all treatment. This has provided minimal relief for the patient. I do not anticipate this course of treatment will alter the underlying etiology. The patient has been scheduled for lower extremity venous treatment inclusive of --- right great saphenous vein Cyanoacralate ablation. Risks, benefits, and complications of this procedure has been discussed in detail with the patient including but not limited to bleeding, infection, and the development of a DVT. The patient has demonstrated a clear understanding and has consented. We will schedule the patient as soon as possible. Thank you for allowing us to participate in this patient's care. If there are any questions or concerns please do not hesitate to contact us. Coding Level of Care Code Est Pt Level 4 (32355) Diagnoses Varicose veins of right lower extremity with inflammation I83.11
[2023-12-25 14:23] VITALS: BMI 34.1
== END 2023-12-25 15:10 | disposition home or self-care (01) ==
LOC: HO.HVS 14:18
PROVIDERS: PCP Internal Medicine; Visit Provider Surgery Vascular Surgery
DX: I83.11 Varicose veins of right lower extremity with inflammation (principal)
CPT/HCPCS: 99214

== ENCOUNTER → 2023-12-25 14:18 | Outpatient (BNVA) | payer OTHER, SELFPAY | PROVIDERS: PCP Internal Medicine; Visit Provider Surgery Vascular Surgery | DX: I83.11 Varicose veins of right lower extremity with inflammation (principal) | CPT/HCPCS: 99212 ==

== ENCOUNTER 2024-01-13 14:14 | Outpatient (AMB) | payer OTHER, SELFPAY ==
[2024-01-13 14:20] VITALS: BP 130/72; PULSE 82; BMI 35.2
--- NOTE | 2024-01-13 14:20 | MHC.PC.OV ---
Vital Signs 01/13/24 14:20 Height 5 ft 10 in Weight 245 lb BMI 35.2 BP 130/72 Blood Pressure Location Lt brachial Position Sitting Pulse 82 Pulse Source Pulse Oximeter Oxygen Delivery Method Room Air Intake Visit Reasons: 6 month f/u Mental Retardation Nurse Required: No Accompanied by: Self / Same As Patient Allergies latex Allergy (Verified 01/13/24 14:45) Rash Medication List - Last Reconciled 01/13/24 by Volodymyr Keller MD cholecalciferol (vitamin D3) 50 mcg PO DAILY 90 days citalopram 10 mg PO DAILY cyanocobalamin (vitamin B-12) 1,000 mcg PO DAILY 90 days dicyclomine 20 mg PO QID famotidine 40 mg PO BEDTIME fluticasone propionate 50 mcg/actuation 2 sprays intranasal DAILY PRN ipratropium-albuterol 0.5 mg-3 mg(2.5 mg base)/3 mL 3 mL inhalation Q6-8H PRN 30 days omeprazole 40 mg PO DAILY 30 days peg 3350-electrolytes 236-22.74-6.74 -5.86 gram (Golytely) 240 mL PO Q10M 1 day sodium,potassium,mag sulfates 17.5-3.13-1.6 gram (Suprep Bowel Prep Kit) 480 mL orally; trazodone 50 mg PO BEDTIME PRN 30 days triamcinolone acetonide 0.025% 1 appl topical TID PRN Tobacco use date assessed: 01/13/24 Dental Screening Dental Screen Date: 01/13/24 Did you have a dental visit in the last 12 months?: No Did you have a dental problem in the last 6 months where you did not have access to dental care?: No Was dental information given to patient?: Patient has dentist HPI 6 month f/u HPI Details Patient comes in today for his follow up visit States that he has been sick for the past couple of months now, with increased cough and congestion and recurrent bone pains lately Does not know if he came down with a cold or if he contracted COVID or the flu a couple of months ago when his symptoms mostly started but states that he was not able to get tested back then States that his cough is mostly non-productive and seems to calm down for a while when he uses his nebulizer at home; feels SOB at times and that his nebulizer also helps with his symptoms of dyspnea when they occur He has also gained a lot of weight lately as he has been laid up at home due to not feeling well for several weeks now He denies any fever or sore throat at present Denies any headaches or dizziness Denies any chest pains No nausea/vomiting, no abdominal pain No change in bowel habits noted Was not able to get his follow up labs done prior to his visit today - states that he completely forgot about them PFSH Medical History Dermatitis Vitamin D deficiency Abdominal pain Dyspnea Anxiety Allergic rhinitis Anemia Obesity (BMI 30-39.9) Pruritic rash Pain of right heel Bilateral ankle pain Shoulder pain, bilateral COVID-19 Asthma Surgical History Hx of colonoscopy Family History Father Cancer Mother No problems noted. Son No problems noted. Daughter No problems noted. Brother No problems noted. Sister No problems noted. Other Diabetes HTN (hypertension) Social History Housing: Apartment Alcohol intake: current Alcohol intake frequency: a few times a week Alcohol type: beer and hard liquor Patient Tobacco Use Status: Never used Tobacco e-Cigarette/Vaping Use: Never Used Second Hand Smoke Exposure: Yes service: No Current occupational status: disabled Cognitive needs: No Hearing needs: No Vision needs: Yes (glasses) Questionnaire PHQ-9 Over the last 2 weeks, how often have you been bothered by any of the following problems? 1. Little interest or pleasure in doing things: not at all 2. Feeling down, depressed, or hopeless: not at all 3. Trouble falling or staying asleep, or sleeping too much: several days 4. Feeling tired or having little energy: not at all 5. Poor appetite or overeating: not at all 6. Feeling bad about yourself - or that you are a failure or have let yourself or your family down: not at all 7. Trouble concentrating on things, such as reading the newspaper or watching television: not at all 8. Moving or speaking so slowly that other people could have noticed. Or the opposite - being so fidgety or restless that you have been moving around a lot more than usual: not at all 9. Thoughts that you would be better off or of hurting yourself in some way: not at all Total score: 1 Depression Screening Interpretation: Negative Depression Screening Done: Yes 98634 - PHQ-9 Billing: Yes Source: Developed by Drs. Matt Munoz, Halina Moscoso, Luis Mckeon and colleagues, with an educational danika from [employer]. Thrive Questionnaire Date Thrive assessed: 01/13/24 I am a: Patient What is your living situation today?: I have a steady place to live Within the past 12 months, did the food you bought not last and you didn't have the money to get more?: Never true Within the past 12 months, did you worry whether your food would run out before you got money to buy more?: Never true Do you have trouble paying for medicines?: No Do you have trouble getting transportation to medical appointments?: No Do you have trouble paying your heating and electricity bill?: No Do you have trouble taking care of your child, family member or friend?: No Do you have trouble with day-to-day activities such as bathing, preparing meals, shopping, managing finances, etc.?: No Are you currently unemployed and looking for a job?: No Are you interested in more education?: No Please select the resources that you would like help with: None Currently or been in a relationship where the following occur: no concerns reported THRIVE Score: 0 AUDIT C Alcohol Use Questionnaire (AUDIT-C) 1. How often do you have a drink containing alcohol?: Never 3. How often do you have six or more drinks on one occasion?: Never Total Score: 0 Score Reviewed/Action Taken: Yes DESHAUN-7 AMB Questionnaire DESHAUN-7 Date DESHAUN - 7 assessed: 01/13/24 Feeling nervous, anxious, or on edge: 1 = Several days Not being able to stop or control worryin = Not at all Worrying too much about different things: 0 = Not at all Trouble relaxin = Not at all Being so restless that it is hard to sit still: 0 = Not at all Becoming easily annoyed or irritable: 1 = Several days Feeling afraid as if something awful might happen: 0 = Not at all Total DESHAUN-7 score (0-4 normal; 5-9 mild; 10-14 moderate; 15-21 severe): 2 Source: Developed by Drs. Matt Munoz, Halina Moscoso, Luis Mckeon and colleagues, with an educational danika from [employer]. DESHAUN-7 Assessment Billing DESHAUN-7 Assessment Tool: DESHAUN-7 Assessment 12600 Review of Systems Const Denies chills, Reports fatigue, Denies fever(s) and Denies headache(s) ENT Denies dysphagia, Denies dizziness, Denies otalgia, Denies headache(s), Denies neck pain, Denies odynophagia and Denies sore throat Card Denies chest pain, Denies rapid heart rate, Denies irregular heart rhythm, Denies palpitations and Reports dyspnea on exertion (mild, at times) Resp Reports chest congestion (at times), Reports cough (recurrent, mostly non-productive), Reports dyspnea on exertion (mild, at times) and Denies wheezing GI Denies abdominal pain, Denies constipation, Denies dysphagia, Denies heartburn, Denies diarrhea, Denies nausea, Denies odynophagia and Denies vomiting Denies difficulty urinating, Denies dysuria and Denies urinary frequency Musc Denies back pain, Denies arthralgias and Denies neck pain Skin/Breast Denies rash Neuro Denies dizziness, Denies headache(s) and Denies paresthesias Endo Reports fatigue and Denies palpitations Nioc/Lymph Details: (+) on and off bilateral lower extremity swelling and pain Aller/Immun Denies wheezing Physical exam (Primary Care) Vital Signs: Last Vital Signs Pulse 82 01/13/24 14:20 BP 130/72 01/13/24 14:20 Oxygen Delivery Method Room Air 01/13/24 14:20 BMI result Body Mass Index 35.2 Tobacco/Smoking Status: Tobacco use Status Tobacco use date assessed 01/13/24 01/13/24 14:21 Patient Tobacco Use Status Never used Tobacco 01/13/24 14:21 e-Cigarette/Vaping Use Never Used 01/13/24 14:21 PHQ-9: PHQ-9 Score PHQ-9: Total score 1 01/13/24 14:36 Depression Screening Interpretation: Negative Thrive Assessment: Date of Thrive Assessment Date Thrive assessed 01/13/24 01/13/24 14:21 Currently or been in a relationship where the following occur: no concerns reported Const General: no acute distress and alert HENMT Ears: TM's normal bilaterally and EAC's normal Throat: Yes posterior oropharynx normal and Yes tonsils normal (no TP congestion) Neck Neck: Yes no lymphadenopathy and Yes supple Thyroid: Thyroid normal Resp Auscultation: no crackles, no rales, rhonchi (scattered) throughout, no wheezes and bronchial breath sounds (occasional) bilateral Cardio Rate: regular rate Rhythm: regular rhythm Heart sounds: no murmurs GI Palpation (GI): Soft to palpation and nontender Auscultation: normal bowel sounds General: Yes no CVA tenderness Back/Spine/Pelvis Back: no CVA tenderness Skin Rashes: no rashes Extrem General: No clubbing, No cyanosis and Yes edema (trace edema bilaterally over both lower extremities) Assessment and Plan Assessment & Plan (1) Asthma exacerbation: Code(s): J45.901 - Unspecified asthma with (acute) exacerbation Qualifiers: Asthma severity: moderate Asthma persistence: persistent Qualified Code(s): J45.41 - Moderate persistent asthma with (acute) exacerbation Plan: Patient is advised that his recent respiratory symptoms are mostly consistent with an acute asthma exacerbation Will start him for now on Asmanex HFA 200 mcg 1 inhalation BID - patient is advised to start this tonigh and that this has to be used BID everyday for it to be effective He can continue with Albuterol HFA 2 inhalations Q 6 hours PRN OR his nebulizer also at QID PRN He is advised that IF he still does not experience any significant improvement of his symptoms in the next few days, then we will consider starting him on a short course of oral prednisone taper (2) Allergic rhinitis: Code(s): J30.9 - Allergic rhinitis, unspecified Qualifiers: Allergic rhinitis trigger: unspecified Allergic rhinitis seasonality: unspecified Qualified Code(s): J30.9 - Allergic rhinitis, unspecified Plan: Continue Fluticasone 50 mcg nasal spray QD PRN (3) Impaired glucose tolerance: Code(s): R73.02 - Impaired glucose tolerance (oral) Plan: HgbA1c was normal at 5.3% on his labs done last year Reinforced low calorie diet /exercise as tolerated (4) Anemia: Code(s): D64.9 - Anemia, unspecified Qualifiers: Anemia type: unspecified type Qualified Code(s): D64.9 - Anemia, unspecified Plan: He was still mildly anemic on his most recent CBC done last year Iron studies done came back normal; his B12 level was noted to be low when checked last year Continue Vitamin B12 1000 mcg QD Screening colonoscopy done a couple of years ago in December 2020 revealed a couple of polyps that were removed; bowel prep was poor but colonoscopy was otherwise mostly normal Will continue to monitor his CBC regularly (5) GERD (gastroesophageal reflux disease): Code(s): K21.9 - Gastro-esophageal reflux disease without esophagitis Qualifiers: Esophagitis presence: without esophagitis Qualified Code(s): K21.9 - Gastro-esophageal reflux disease without esophagitis Plan: Dietary restrictions reinforced Continue Famotidine 40 mg Q HS (6) Irritable bowel syndrome with both constipation and diarrhea: Code(s): K58.2 - Mixed irritable bowel syndrome Plan: Continue Dicyclomine 20 mg QID PRN Follow up with GI as scheduled (7) Memory impairment: Code(s): R41.3 - Other amnesia Plan: Was seen by neurology for evaluation back in November 2022 and was advised that his memory issues are most likely due to MCI but he was recommended to get an EEG done as well as a head CT without contrast Head CT done in January 2023 revealed (+) chronic microvascular ischemic changes and there is mild diffuse volume loss EEG done with neurology last year reportedly came back normal (8) Vitamin D deficiency: Code(s): E55.9 - Vitamin D deficiency, unspecified Plan: Corrected - continue Vitamin D3 2000 units QD (9) Varicose veins of bilateral lower extremities with pain: Code(s): I83.813 - Varicose veins of bilateral lower extremities with pain Plan: Follow up with vascular surgery as scheduled (10) Dermatitis: Code(s): L30.9 - Dermatitis, unspecified Plan: Continue Triamcinolone acetonide 0.025% cream apply to affected areas TID PRN (11) Insomnia: Code(s): G47.00 - Insomnia, unspecified Qualifiers: Insomnia type: unspecified Qualified Code(s): G47.00 - Insomnia, unspecified Plan: Sleep hygiene reinforced Continue Trazodone 50 mg Q HS PRN (12) Anxiety: Code(s): F41.9 - Anxiety disorder, unspecified Plan: Continue Lorazepam 0.5 mg 2 to 3 times a day as needed and Citalopram 10 mg QD Advised to call if his anxiety persists or gets worse despite Rx (13) Obesity (BMI 30-39.9): Code(s): E66.9 - Obesity, unspecified Plan: Reinforced diet/exercise as tolerated/lose weight Plan Follow up in 3 months Medications: New mometasone 200 mcg/actuation (Asmanex HFA) 1 puff inhalation BID 13 grams 5RF Coding Level of Care Code Est Pt Level 4 (45804) Diagnoses Moderate persistent asthma with exacerbation J45.41 Asthma severity: moderate Asthma persistence: persistent Allergic rhinitis, unspecified seasonality, unspecified trigger J30.9 Allergic rhinitis trigger: unspecified Allergic rhinitis seasonality: unspecified Impaired glucose tolerance R73.02 Anemia, unspecified type D64.9 Anemia type: unspecified type Gastroesophageal reflux disease without esophagitis K21.9 Esophagitis presence: without esophagitis Irritable bowel syndrome with both constipation and diarrhea K58.2 Memory impairment R41.3 Vitamin D deficiency E55.9 Varicose veins of bilateral lower extremities with pain I83.813 Dermatitis L30.9 Insomnia, unspecified type G47.00 Insomnia type: unspecified Anxiety F41.9 Obesity (BMI 30-39.9) E66.9 Additional Codes DESHAUN-7 Assessment Billing - DESHAUN-7 Assessment Tool: DESHAUN-7 Assessment 46619 ([id number])
== END 2024-01-13 14:56 | disposition home or self-care (01) ==
PROVIDERS: PCP Internal Medicine; Visit Provider Internal Medicine
DX: J45.41 Moderate persistent asthma with (acute) exacerbation (principal); J30.9 Allergic rhinitis, unspecified; E66.9 Obesity, unspecified; Z68.35 Body mass index [BMI] 35.0-35.9, adult; R73.02 Impaired glucose tolerance (oral); D64.9 Anemia, unspecified; K21.9 Gastro-esophageal reflux disease without esophagitis; K58.2 Mixed irritable bowel syndrome; R41.3 Other amnesia; E55.9 Vitamin D deficiency, unspecified; I83.813 Varicose veins of bilateral lower extremities with pain; L30.9 Dermatitis, unspecified
CPT/HCPCS: 99214

== ENCOUNTER 2024-02-06 10:27 | Outpatient (AMB) | payer OTHER, SELFPAY ==
[2024-02-06 11:25] VITALS: BMI 35.2
--- NOTE | 2024-02-06 11:25 | A.OFFVIS_ITS ---
Intake Vital Signs 02/06/24 11:25 Height 5 ft 10 in Weight 245 lb BMI 35.2 Intake Visit Reasons: Right Venaseal Accompanied by: Self / Same As Patient Allergies latex Allergy (Verified 02/06/24 11:26) Rash PFSH Medical History Dermatitis Vitamin D deficiency Abdominal pain Dyspnea Anxiety Allergic rhinitis Anemia Obesity (BMI 30-39.9) Pruritic rash Pain of right heel Bilateral ankle pain Shoulder pain, bilateral COVID-19 Asthma Surgical History (Reviewed 02/06/24 @ 11: by BURKE Perdue) Hx of colonoscopy Family History (Reviewed 02/06/24 @ 11: by BURKE Perdue) Father Cancer Mother No problems noted. Son No problems noted. Daughter No problems noted. Brother No problems noted. Sister No problems noted. Other Diabetes HTN (hypertension) Social History (Reviewed 02/06/24 @ 11: by BURKE Perdue) Housing: Apartment Alcohol intake: current Alcohol intake frequency: a few times a week Alcohol type: beer and hard liquor Patient Tobacco Use Status: Never used Tobacco e-Cigarette/Vaping Use: Never Used Second Hand Smoke Exposure: Yes service: No Current occupational status: disabled Cognitive needs: No Hearing needs: No Vision needs: Yes (glasses) Physical Exam Vital Signs: BMI result Body Mass Index 35.2 Office Procedures Vascular Office Procedure Details Details: Diagnosis: Right Leg varicose veins with inflammation Procedure: Endovenous Ablation of the right Great Saphenous Vein with VenaSeal Closure System Anesthesia: Local infiltration 5 cc, Estimated Blood Loss: min Specimen: none Duplex ultrasound was used to map out the insufficient saphenous vein, and access was determined and marked on the overlying skin. The depth and diameter of the vein(s) to be treated was documented. The patient was placed supine on the procedure table and the leg was prepped and draped using sterile technique. Ultasound guidance was again used to localize the access site. 1% lidocaine was injected as a local anesthetic in the subcutaneous tissues at the target location in the GSV in the lower leg. Using ultrasound guidance, access was gained at this location with the 19 gauge thin walled access needle and followed by introduction of a short guidewire, location confirmed with ultrasound. A small, 3 mm incision was made at the access site to allow for introduction and placement of the 7 Fr x7cm introducer/dilator. The dilator and guidewire were removed. The 0.035 guidewire from the VenaSeal kit was then introduced and positioned at the saphenofemoral junction using ultrasound guidance. The 80 cm 7 Fr introducer sheath/dilator was positioned 5cm from the saphenofemoral junction. The guidewire and dilator were removed, and the remaining sheath was flushed with sterile saline, with the syringe remaining in place prior to the next steps. The cyanoacrylate adhesive was precisely primed into the 5 F delivery catheter and this catheter/syringe combination was attached within the dispenser gun. This assembly was introduced through the 7F sheath and positioned 5 cm caudal of the saphenofemoral junction under ultrasound guidance. The steps from the IFU were followed for dispensing amounts, locations and compression times, 2 aliqu ots proximally with 3 minutes of compression, and 1 aliquot every 3 cm distally with 30 sec of compression along the course of the vessel. Following the last injection and compression sequence, the catheter and introducer sheath were pulled out from the access site. Hemostasis was achieved with manual compression and an adhesive bandage was applied to the incision. Ultrasound confirmed complete coaptation and closure of the treated segments of the GSV, and the absence of any DVT at the saphenofemoral junction. Treatment time was approximately 5 minutes and the vein length treated was 25 cm. The drapes were removed and the patient cleaned and prepared for discharge. Post op ultrasound check is scheduled for 48-72 hours and the patient was given written post-op instructions. 73892 - Endoven Ther Chem Adhes 1st All charges added?: Procedure code (CPT) selection complete Assessment & Plan Assessment & Plan (1) Varicose veins of right lower extremity with inflammation: Comment: 02/06/2024 - right great saphenous vein Cyanoacralate ablation Code(s): I83.11 - Varicose veins of right lower extremity with inflammation Plan: See op note Coding Level of Care Code Procedure Only Diagnoses Varicose veins of right lower extremity with inflammation I83.11 CPT Codes Details - Vascular 3: 18970 - Endoven Ther Chem Adhes 1st ([id number])
== END 2024-02-06 11:31 | disposition home or self-care (01) ==
PROVIDERS: PCP Internal Medicine; Visit Provider Surgery Vascular Surgery
DX: I83.11 Varicose veins of right lower extremity with inflammation (principal)
CPT/HCPCS: 36482

== ENCOUNTER → 2024-02-06 10:27 | Outpatient (BNVA) | payer OTHER, SELFPAY | PROVIDERS: PCP Internal Medicine; Visit Provider Surgery Vascular Surgery | DX: I83.11 Varicose veins of right lower extremity with inflammation (principal) | CPT/HCPCS: 36482 ==

== ENCOUNTER 2024-02-09 12:57 | Outpatient (REF) | payer OTHER, SELFPAY ==
--- NOTE | ~2024-02-09 | US_ITS ---
EXAMINATION: TRIPLEX SCANNING OF RIGHT LOWER EXTREMITY; SUPERFICIAL ULTRASOUND WITH DOPPLER OF RIGHT LOWER EXTREMITY CLINICAL INFORMATION: Status post Venaseal of the right great saphenous vein COMPARISON: Ultrasound from 09/17/2023. TECHNIQUE: Color flow triplex imaging and compression Doppler were performed as well as superficial ultrasound with Doppler. FINDINGS: RIGHT LOWER EXTREMITY DEEP VENOUS SYSTEM: Respiratory variation, normal compression and augmented flow are noted throughout the lower extremity. The visualized common femoral vein, femoral vein, profunda femoral vein, popliteal vein and the calf veins show no evidence of deep venous thrombosis. There is no evidence of Cook's cyst. SUPERFICIAL VENOUS SYSTEM: The great saphenous vein is occluded from the access site to approximately 5.6 cm before the saphenofemoral junction. There is no extension of thrombus into the deep system. US/US venous duplex LE RT IMPRESSION: 1. No evidence of DVT. 2. Excellent appearance status post ablation of the right great saphenous vein.
== END 2024-02-09 12:58 | disposition home or self-care (01) ==
LOC: HO.US 12:57
PROVIDERS: PCP Internal Medicine; Visit Provider Surgery Vascular Surgery
DX: M79.604 Pain in right leg (principal)
CPT/HCPCS: 93971

== ENCOUNTER 2024-03-03 13:24 | Outpatient (AMB) | payer OTHER, SELFPAY ==
[2024-03-03 13:27] VITALS: BP 140/78; PULSE 70; BMI 34.9
--- NOTE | 2024-03-03 13:27 | A.OFFVIS_ITS ---
Vital Signs 03/03/24 13:27 Height 5 ft 10 in Weight 243 lb 6.245 oz BMI 34.9 BP 140/78 H Blood Pressure Location Rt brachial Position Sitting Pulse 70 Intake Visit Reasons: 6 month follow up IBS, GERD Intake Note: Patient present to in office visit today in 6 months follow up of GERD. CC: Patient reports doing well and denies having any new GI symptoms. He states that he is not taking the Famotidine because the dose is to high, he would like to get the 20 mg. Per patient his colonoscopy was rescheduled to May because he was sick. 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 Accompanied by: Self / Same As Patient Allergies No Known Drug Allergies Allergy (Unknown, Verified 03/03/24 13:40) none latex Allergy (Verified 03/03/24 13:40) Rash HPI HPI 6 month follow up IBS, GERD: Details: Assessment & Plan (1) Irritable bowel syndrome with both constipation and diarrhea: Code(s): K58.2 - Mixed irritable bowel syndrome (2) GERD (gastroesophageal reflux disease): Code(s): K21.9 - Gastro-esophageal reflux disease without esophagitis Qualifiers: Esophagitis presence: without esophagitis Qualified Code(s): K21.9 - Gastro-esophageal reflux disease without esophagitis (3) Tubular adenoma of colon: Comment: 2020 scope large TA is repeat 3 years Code(s): D12.6 - Benign neoplasm of colon, unspecified VENEZUELAN #[id number] He says he saw an ENT provider who gave me a pill that did well for me for a while, but then I ran out. He does not know what the pill was. I find the ENT note and it was omeprazole, so I will start this and he can keep the famotidine for breakthrough. He continues on his bentyl and he finds that when he has tried to stop it he became constipated. I tell him this is ok to continue this and he does not need to stop it. ROV 6 mos and after colonoscopy Medications: New sodium,potassium,mag sulfates 17.5-3.13-1.6 gram (Suprep Bowel Prep Kit) 480 mL orally; 354 mL 0RF omeprazole 40 mg PO DAILY 30 caps 6RF 30 days Refilled dicyclomine 20 mg PO QID 360 tabs 1RF K58.2 - Mixed irritable bowel syndrome famotidine 40 mg PO BEDTIME 90 tabs 1RF K21.9 - Gastro-esophageal reflux disease without esophagitis COLONOSCOPY Scheduled for 05/05/2024 BIOPSY TODAY'S VISIT VENEZUELAN #[id number], Darryl Doing well on his meds. He continues on his omeprazole in his dicyclomine with good control who have GI conditions. Keep 05/19 appt after colonoscopy [facility] Medical History Dermatitis Vitamin D deficiency Abdominal pain Dyspnea Anxiety Allergic rhinitis Anemia Obesity (BMI 30-39.9) Pruritic rash Pain of right heel Bilateral ankle pain Shoulder pain, bilateral COVID-19 Asthma Surgical History Hx of colonoscopy Family History Father Cancer Mother No problems noted. Son No problems noted. Daughter No problems noted. Brother No problems noted. Sister No problems noted. Other Diabetes HTN (hypertension) Social History Housing: Apartment Alcohol intake: current Alcohol intake frequency: a few times a week Alcohol type: beer and hard liquor Patient Tobacco Use Status: Never used Tobacco e-Cigarette/Vaping Use: Never Used Second Hand Smoke Exposure: Yes service: No Current occupational status: disabled Cognitive needs: No Hearing needs: No Vision needs: Yes (glasses) Review of Systems Const Denies fatigue, Denies fever(s), Denies night sweats, Denies poor appetite and Denies weight loss ENT Reports Normal hearing present, Denies dental pain, Denies dysphagia, Denies hearing loss, Denies mouth pain, Denies odynophagia, Denies throat swelling, Denies tongue swelling and Reports other (Dentition adequate) Card Reports no additional complaints Resp Reports no additional complaints GI Details: Denies abdominal pain, Denies melena, Denies bloating, Denies hematochezia, Denies constipation, Reports GI cramping, Denies dysphagia, Denies excessive flatus, Denies early satiety, Reports heartburn, Denies diarrhea, Denies nausea, Denies odynophagia, Denies vomiting and Denies hematemesis Skin/Breast Denies pruritus, Denies lesions, Denies rash and Denies jaundice Neuro Reports Normal hearing present and Denies Abnormal speech present Endo Denies fatigue Aller/Immun Denies throat swelling and Denies tongue swelling Physical Exam Vital Signs: Last Vital Signs Pulse 70 03/03/24 13:27 BP 140/78 H 03/03/24 13:27 BMI result Body Mass Index 34.9 Const General: cooperative, no acute distress, well developed and well groomed Nutritional Appearance: well nourished and obese Orientation/consciousness: oriented to person, oriented to place and oriented to time Limitations: language barrier HEENT Head: Yes normocephalic and Yes atraumatic Eyes General: appearance normal, both eyes and all related structures Pupils: Equal, round and reactive pupils present Neck Neck: Yes normal visual inspection and Yes no lymphadenopathy Thyroid: Thyroid normal Resp Effort & Inspection: normal respiratory effort and able to speak in complete sentences Auscultation: clear to auscultation bilaterally Cardio Rate: regular rate Rhythm: regular rhythm Heart sounds: Normal, physiologic split S2 sound present Peripheral pulses: radial pulses present and posterior tibial pulses present GI Inspection: No distended, No Abdominal panniculus present and Yes obesity Palpation (GI): Soft to palpation, nontender, no guarding, not rigid and No hepatosplenomegaly present Percussion: Yes normal to percussion Auscultation: normal bowel sounds Rectal Exam - Male: Yes deferred Skin General skin exam: no rashes or lesions noted, turgor normal, skin not dry, no jaundice, No spider nevi and no striae Rashes: no rashes Nails: normal Neuro General: oriented to person, oriented to place and oriented to time Cranial nerves: Yes Equal, round and reactive pupils present and Yes Normal hearing present Speech: No Abnormal speech present Extrem General: Yes normal to inspection, No clubbing, No cyanosis and No edema Psych Appearance: grossly normal and well kempt Mental Status: mental status grossly normal Speech and movement: Normal speech and movement present Affect: normal affect Attitude: cooperative Thought process: Normal thought process present and not confabulating Thought content: Normal thought content present Insight: Limited insight present (Psych) Judgement: Limited judgement present (Psych) Assessment & Plan Assessment & Plan (1) Irritable bowel syndrome with both constipation and diarrhea: Code(s): K58.2 - Mixed irritable bowel syndrome Category: Medical (2) GERD (gastroesophageal reflux disease): Code(s): K21.9 - Gastro-esophageal reflux disease without esophagitis Category: Medical Qualifiers: Esophagitis presence: without esophagitis Qualified Code(s): K21.9 - Gastro-esophageal reflux disease without esophagitis Plan VENEZUELAN #[id number], Darryl Doing well on his meds. He continues on his omeprazole in his dicyclomine with good control who have GI conditions. Keep 05/19 appt after colonoscopy COLONOSCOPY Scheduled for 05/05/2024 BIOPSY Coding Level of Care Code Est Pt Level 3 (23716) Diagnoses Irritable bowel syndrome with both constipation and diarrhea K58.2 Gastroesophageal reflux disease without esophagitis K21.9 Esophagitis presence: without esophagitis
== END 2024-03-03 13:51 | disposition home or self-care (01) ==
PROVIDERS: PCP Internal Medicine; Visit Provider Nurse Practitioner
DX: K58.2 Mixed irritable bowel syndrome (principal); K21.9 Gastro-esophageal reflux disease without esophagitis
CPT/HCPCS: 99213

== ENCOUNTER → 2024-03-03 13:24 | Outpatient (BNVA) | payer OTHER, SELFPAY | PROVIDERS: PCP Internal Medicine; Visit Provider Nurse Practitioner | DX: K58.2 Mixed irritable bowel syndrome (principal); K21.9 Gastro-esophageal reflux disease without esophagitis; Z98.890 Other specified postprocedural states | CPT/HCPCS: 99212 ==

== ENCOUNTER 2024-03-16 14:19 | Outpatient (AMB) | payer OTHER, SELFPAY ==
[2024-03-16 14:18] VITALS: BMI 34.9
--- NOTE | 2024-03-16 14:18 | MHC.OFFVIS ---
Vital Signs 03/16/24 14:18 Height 5 ft 10 in Weight 243 lb BMI 34.9 Intake Visit Reasons: 4 week follow up venaseal Intake Note: follow up Right GSV Venaseal 02/06/24 & hx of Left GSV Venaseal 12/12/23. Pt states no issues, left leg feels good as well. Pt states he has numbness and cramping. 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 He most recently has undergone right great saphenous vein ablation. He has had prior left great saphenous vein ablation. Reports that both lower extremities are doing well after the procedure. Overall swelling and discomfort have improved. [facility] Medical History Dermatitis Vitamin D deficiency Abdominal pain Dyspnea Anxiety Allergic rhinitis Anemia Obesity (BMI 30-39.9) Pruritic rash Pain of right heel Bilateral ankle pain Shoulder pain, bilateral COVID-19 Asthma Surgical History Hx of colonoscopy Family History Father Cancer Mother No problems noted. Son No problems noted. Daughter No problems noted. Brother No problems noted. Sister No problems noted. Other Diabetes HTN (hypertension) Social History Housing: Apartment Alcohol intake: current Alcohol intake frequency: a few times a week Alcohol type: beer and hard liquor Patient Tobacco Use Status: Never used Tobacco e-Cigarette/Vaping Use: Never Used Second Hand Smoke Exposure: Yes service: No Current occupational status: disabled Cognitive needs: No Hearing needs: No Vision needs: Yes (glasses) Review of Systems Const All systems reviewed & are unremarkable except as noted in HPI and below Reports no additional complaints ENT Reports Normal hearing present Card Denies chest pain, Denies chest pain at rest, Denies chest pain with activity and Denies pedal edema Resp Denies cough GI Denies abdominal pain Musc Denies abnormal gait, Denies muscle cramps and Denies radiating pain into limb Skin/Breast Denies skin ulcer and Denies wounds Neuro Reports Normal hearing present and Denies abnormal gait Psych Reports no additional complaints Physical Exam Vital Signs: BMI result Body Mass Index 34.9 Const General: cooperative, healthy appearing and comfortable Orientation/consciousness: oriented to person, oriented to place and oriented to time HEENT Head: Yes normal to inspection Neck Neck: Yes normal visual inspection Carotids: no bruits Chest Chest palpation & inspection: normal inspection of the chest Resp Effort & Inspection: normal respiratory effort and able to speak in complete sentences Auscultation: clear to auscultation bilaterally, no crackles, no rales, no rhonchi and no wheezes Cardio Rate: regular rate Rhythm: regular rhythm Heart sounds: S1 normal heart sound present and S2 normal heart sound present Bruits: no carotid bruits Peripheral pulses: Peripheral pulses 2+ throughout GI Inspection: Yes normal to inspection Skin Wounds: no wounds Hair: normal Neuro General: oriented to person, oriented to place and oriented to time Cranial nerves: Yes CN's II-XII intact bilaterally and Yes Normal hearing present Cognition (Neuro): normal cognition Motor exam (neuro): 5/5 motor strength present throughout Extrem Other: venous exam: No significant superficial varicosities or spider telangiectasias, minimal edema General: No clubbing, No cyanosis and No edema Psych Appearance: grossly normal Mental Status: mental status grossly normal Speech and movement: Normal speech and movement present Assessment & Plan Assessment & Plan (1) Varicose veins of right lower extremity with inflammation: Comment: 02/06/2024 - right great saphenous vein Cyanoacralate ablation Code(s): I83.11 - Varicose veins of right lower extremity with inflammation Category: Medical Plan: The patient has done extremely well with all venous treatments. Patient's may often experience postprocedure phlebitic episodes and I have discussed with the patient use of warm compresses and NSAIDS if tolerated for pain discomfort. In addition, I have discussed continued conservative measures including use of compression, leg elevation, and exercise. The patient was also given an information sheet regarding appropriate use of compression stockings and future purchases. Thank you for allowing us to care for your patient with venous disease. (2) Varicose veins of left lower extremity with inflammation: Comment: 12/12/2023 - left great saphenous vein Cyanoacralate ablation Code(s): I83.12 - Varicose veins of left lower extremity with inflammation Category: Medical Plan: See above Coding Level of Care Code Est Pt Level 3 (34389) Diagnoses Varicose veins of right lower extremity with inflammation I83.11 Varicose veins of left lower extremity with inflammation I83.12
== END 2024-03-16 14:47 | disposition home or self-care (01) ==
PROVIDERS: PCP Internal Medicine; Visit Provider Surgery Vascular Surgery
DX: I83.11 Varicose veins of right lower extremity with inflammation (principal); I83.12 Varicose veins of left lower extremity with inflammation
CPT/HCPCS: 99213

== ENCOUNTER → 2024-03-16 14:19 | Outpatient (BNVA) | payer OTHER, SELFPAY | PROVIDERS: PCP Internal Medicine; Visit Provider Surgery Vascular Surgery | DX: I83.11 Varicose veins of right lower extremity with inflammation (principal); I83.12 Varicose veins of left lower extremity with inflammation; Z98.890 Other specified postprocedural states | CPT/HCPCS: 99212 ==

== ENCOUNTER 2024-04-21 15:10 | Outpatient (AMB) | payer OTHER, SELFPAY ==
--- NOTE | 2024-04-21 15:12 | MHC.PC.OV ---
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 Allergies No Known Drug Allergies Allergy (Unknown, Verified 04/21/24 15:52) none latex Allergy (Verified 04/21/24 15:52) Rash Medication List - Last Reconciled 04/21/24 by Volodymyr Keller MD cholecalciferol (vitamin D3) 50 mcg PO DAILY 90 days citalopram 10 mg PO DAILY cyanocobalamin (vitamin B-12) 1,000 mcg PO DAILY 90 days dicyclomine 20 mg PO QID famotidine 40 mg PO BEDTIME fluticasone propionate 50 mcg/actuation 2 sprays intranasal DAILY PRN ipratropium-albuterol 0.5 mg-3 mg(2.5 mg base)/3 mL 3 mL inhalation Q6-8H PRN 30 days mometasone 200 mcg/actuation (Asmanex HFA) 1 puff inhalation BID omeprazole 40 mg PO DAILY peg 3350-electrolytes 236-22.74-6.74 -5.86 gram (Golytely) 240 mL PO Q10M 1 day sodium,potassium,mag sulfates 17.5-3.13-1.6 gram (Suprep Bowel Prep Kit) 480 mL orally; trazodone 50 mg PO BEDTIME PRN 30 days triamcinolone acetonide 0.025% 1 appl topical TID PRN Tobacco use date assessed: 01/13/24 Dental Screening Dental Screen Date: 01/13/24 HPI 3mth f/u HPI Details Patient comes in today for his follow up visit States that he feels okay Still has occasional cough and congestion that are promptly relieved when he uses his nebulizer (at home) - relates that his cough is mostly non-productive He denies any headaches or dizziness Denies any chest pains No nausea/vomiting, no abdominal pain No change in bowel habits noted He continues to experience increased pain in both feet, especially over the heel areas - states that his feet have been bothering him for a while He denies any past history of trauma or injury to his feet He is still not able to get his follow up labs done yet - states that he will try to go and get them done tomorrow morning PFS Medical History Dermatitis Vitamin D deficiency Abdominal pain Dyspnea Anxiety Allergic rhinitis Anemia Obesity (BMI 30-39.9) Pruritic rash Pain of right heel Bilateral ankle pain Shoulder pain, bilateral COVID-19 Asthma Surgical History Hx of colonoscopy Family History Father Cancer Mother No problems noted. Son No problems noted. Daughter No problems noted. Brother No problems noted. Sister No problems noted. Other Diabetes HTN (hypertension) Social History Housing: Apartment Alcohol intake: current Alcohol intake frequency: a few times a week Alcohol type: beer and hard liquor Patient Tobacco Use Status: Never used Tobacco e-Cigarette/Vaping Use: Never Used Second Hand Smoke Exposure: Yes service: No Current occupational status: disabled Cognitive needs: No Hearing needs: No Vision needs: Yes (glasses) Questionnaire Thrive Questionnaire Date Thrive assessed: 01/13/24 AUDIT C Alcohol Use Questionnaire (AUDIT-C) 1. How often do you have a drink containing alcohol?: Never 3. How often do you have six or more drinks on one occasion?: Never Total Score: 0 Score Reviewed/Action Taken: Yes DESHAUN-7 AMB Questionnaire DESHAUN-7 Date DESHAUN - 7 assessed: 01/13/24 Feeling nervous, anxious, or on edge: 1 = Several days Not being able to stop or control worryin = Not at all Worrying too much about different things: 0 = Not at all Trouble relaxin = Not at all Being so restless that it is hard to sit still: 0 = Not at all Becoming easily annoyed or irritable: 1 = Several days Feeling afraid as if something awful might happen: 0 = Not at all Total DESHAUN-7 score (0-4 normal; 5-9 mild; 10-14 moderate; 15-21 severe): 2 Source: Developed by Drs. Matt Munoz, Halina Moscoso, Luis Mckeon and colleagues, with an educational danika from [employer]. DESHAUN-7 Assessment Billing DESHAUN-7 Assessment Tool: DESHAUN-7 Assessment 51140 Review of Systems Const Denies chills, Reports fatigue, Denies fever(s) and Denies headache(s) ENT Denies dysphagia, Denies dizziness, Denies otalgia, Denies headache(s), Denies neck pain, Denies odynophagia and Denies sore throat Card Denies chest pain, Denies rapid heart rate, Denies irregular heart rhythm, Denies palpitations and Reports dyspnea on exertion (mild, at times) Resp Reports chest congestion (at times), Reports cough (on and off, mostly non-productive), Reports dyspnea on exertion (mild, at times) and Denies wheezing GI Denies abdominal pain, Denies constipation, Denies dysphagia, Denies heartburn, Denies diarrhea, Denies nausea, Denies odynophagia and Denies vomiting Denies difficulty urinating, Denies dysuria and Denies urinary frequency Musc Denies back pain, Denies arthralgias and Denies neck pain Skin/Breast Denies rash Neuro Denies dizziness, Denies headache(s) and Denies paresthesias Endo Reports fatigue and Denies palpitations Nico/Lymph Details: (+) on and off bilateral lower extremity swelling and pain Aller/Immun Denies wheezing Physical exam (Primary Care) Vital Signs: Last Vital Signs Pulse 84 04/21/24 15:15 BP 126/70 04/21/24 15:15 Pulse Ox 98 04/21/24 15:15 Oxygen Delivery Method Room Air 04/21/24 15:15 BMI result Body Mass Index 35.0 Tobacco/Smoking Status: Tobacco use Status Tobacco use date assessed 01/13/24 04/21/24 15:12 Patient Tobacco Use Status Never used Tobacco 04/21/24 15:12 e-Cigarette/Vaping Use Never Used 04/21/24 15:12 Thrive Assessment: Date of Thrive Assessment Date Thrive assessed 01/13/24 04/21/24 15:12 Const General: no acute distress and alert HENMT Ears: TM's normal bilaterally and EAC's normal Throat: Yes posterior oropharynx normal and Yes tonsils normal (no TP congestion) Neck Neck: Yes no lymphadenopathy and Yes supple Thyroid: Thyroid normal Resp Auscultation: no crackles, no rales, rhonchi (scattered) throughout and no wheezes Cardio Rate: regular rate Rhythm: regular rhythm Heart sounds: no murmurs GI Palpation (GI): Soft to palpation and nontender Auscultation: normal bowel sounds General: Yes no CVA tenderness Back/Spine/Pelvis Back: no CVA tenderness Skin Rashes: no rashes Extrem General: No clubbing, No cyanosis and Yes edema (trace edema bilaterally over both lower extremities) Right lower extremity: foot Details: tenderness Location: of the calcaneus Left lower extremity: foot Details: tenderness Location: of the calcaneus Assessment and Plan Assessment & Plan (1) Asthma: Code(s): J45.909 - Unspecified asthma, uncomplicated Qualifiers: Asthma severity: mild Asthma persistence: intermittent Asthma complication type: uncomplicated Qualified Code(s): J45.20 - Mild intermittent asthma, uncomplicated Plan: Continue Asmanex HFA 200 mcg 1 inhalation BID and Albuterol HFA 2 inhalations Q 6 hours PRN OR his nebulizer also at QID PRN (2) Allergic rhinitis: Code(s): J30.9 - Allergic rhinitis, unspecified Qualifiers: Allergic rhinitis seasonality: unspecified Allergic rhinitis trigger: unspecified Qualified Code(s): J30.9 - Allergic rhinitis, unspecified Plan: Continue Fluticasone 50 mcg nasal spray QD PRN (3) Impaired glucose tolerance: Code(s): R73.02 - Impaired glucose tolerance (oral) Plan: HgbA1c was normal at 5.3% when checked sometime last year Reinforced low calorie diet /exercise as tolerated (4) Anemia: Code(s): D64.9 - Anemia, unspecified Qualifiers: Anemia type: unspecified type Qualified Code(s): D64.9 - Anemia, unspecified Plan: He was still mildly anemic on his most recent CBC done last year Iron studies done came back normal; his B12 level was noted to be low when checked last year Continue Vitamin B12 1000 mcg QD Screening colonoscopy done a couple of years ago in December 2020 revealed a couple of polyps that were removed; bowel prep was poor but colonoscopy was otherwise mostly normal Will continue to monitor his CBC regularly (5) GERD (gastroesophageal reflux disease): Code(s): K21.9 - Gastro-esophageal reflux disease without esophagitis Qualifiers: Esophagitis presence: without esophagitis Qualified Code(s): K21.9 - Gastro-esophageal reflux disease without esophagitis Plan: Dietary restrictions reinforced Continue Famotidine 40 mg Q HS (6) Irritable bowel syndrome with both constipation and diarrhea: Code(s): K58.2 - Mixed irritable bowel syndrome Plan: Continue Dicyclomine 20 mg QID PRN Follow up with GI as scheduled (7) Memory impairment: Code(s): R41.3 - Other amnesia Plan: Was seen by neurology for evaluation back in November 2022 and was advised that his memory issues are most likely due to MCI but he was recommended to get an EEG done as well as a head CT without contrast Head CT done in January 2023 revealed (+) chronic microvascular ischemic changes and there is mild diffuse volume loss EEG done with neurology last year reportedly came back normal (8) Vitamin D deficiency: Code(s): E55.9 - Vitamin D deficiency, unspecified Plan: Continue Vitamin D3 2000 units QD (9) Varicose veins of bilateral lower extremities with pain: Code(s): I83.813 - Varicose veins of bilateral lower extremities with pain Plan: Follow up with vascular surgery as scheduled (10) Pain in both feet: Code(s): M79.671 - Pain in right foot; M79.672 - Pain in left foot Plan: Discussed that he likely has heel spurs Will send him for x-rays of both feet/heels for further evaluation (11) Insomnia: Code(s): G47.00 - Insomnia, unspecified Qualifiers: Insomnia type: unspecified Qualified Code(s): G47.00 - Insomnia, unspecified Plan: Sleep hygiene reinforced Continue Trazodone 50 mg Q HS PRN (12) Anxiety: Code(s): F41.9 - Anxiety disorder, unspecified Plan: Continue Lorazepam 0.5 mg 2 to 3 times a day as needed and Citalopram 10 mg QD Advised to call if his anxiety persists or gets worse despite Rx (13) Obesity (BMI 30-39.9): Code(s): E66.9 - Obesity, unspecified Plan: Reinforced diet/exercise as tolerated/lose weight Plan Follow up in 3 months Orders: Orders XR foot RT min 3V 04/21/24 M79.671 - Pain in right foot, M79.672 - Pain in left foot XR foot LT min 3V 04/21/24 M79.671 - Pain in right foot, M79.672 - Pain in left foot Coding Level of Care Code Est Pt Level 4 (24787) Diagnoses Mild intermittent asthma without complication J45.20 Asthma severity: mild Asthma persistence: intermittent Asthma complication type: uncomplicated Allergic rhinitis, unspecified seasonality, unspecified trigger J30.9 Allergic rhinitis seasonality: unspecified Allergic rhinitis trigger: unspecified Impaired glucose tolerance R73.02 Anemia, unspecified type D64.9 Anemia type: unspecified type Gastroesophageal reflux disease without esophagitis K21.9 Esophagitis presence: without esophagitis Irritable bowel syndrome with both constipation and diarrhea K58.2 Memory impairment R41.3 Vitamin D deficiency E55.9 Varicose veins of bilateral lower extremities with pain I83.813 Pain in both feet M79.671; M79.672 Insomnia, unspecified type G47.00 Insomnia type: unspecified Anxiety F41.9 Obesity (BMI 30-39.9) E66.9 Additional Codes DESHAUN-7 Assessment Billing - DESHAUN-7 Assessment Tool: DESHAUN-7 Assessment 11602 ([id number])
[2024-04-21 15:15] VITALS: BP 126/70; PULSE 84; O2SAT 98; BMI 35.0
== END 2024-04-21 15:53 | disposition home or self-care (01) ==
PROVIDERS: PCP Internal Medicine; Visit Provider Internal Medicine
DX: J45.20 Mild intermittent asthma, uncomplicated (principal); E66.9 Obesity, unspecified; Z68.35 Body mass index [BMI] 35.0-35.9, adult; J30.9 Allergic rhinitis, unspecified; R73.02 Impaired glucose tolerance (oral); D64.9 Anemia, unspecified; K21.9 Gastro-esophageal reflux disease without esophagitis; K58.2 Mixed irritable bowel syndrome; R41.3 Other amnesia; E55.9 Vitamin D deficiency, unspecified; I83.813 Varicose veins of bilateral lower extremities with pain; M79.671 Pain in right foot; M79.672 Pain in left foot
CPT/HCPCS: 99214

== ENCOUNTER 2024-04-22 11:18 | Outpatient (REF) | payer OTHER, SELFPAY ==
--- NOTE | ~2024-04-22 | XR_ITS ---
EXAMINATION: XR BILATERAL FEET CLINICAL INFORMATION: Pain. COMPARISON: None available. TECHNIQUE: 3 views of each foot. FINDINGS: LEFT FOOT: Small dorsal and plantar calcaneal spurs. Degenerative changes with hypertrophic change at the tarsometatarsal joints. Mild degenerative changes in the first metatarsophalangeal joint. RIGHT FOOT: Small dorsal and plantar calcaneal spurs. Mild degenerative changes in the first metatarsophalangeal joint. XR/XR foot LT min 3V IMPRESSION: 1. Small bilateral calcaneal spurs. 2. Degenerative changes in the bilateral feet. 3. No displaced fracture. Recommend follow-up imaging in 10-14 days if fracture is suspected.
--- NOTE | ~2024-04-22 | XR_ITS ---
EXAMINATION: XR BILATERAL FEET CLINICAL INFORMATION: Pain. COMPARISON: None available. TECHNIQUE: 3 views of each foot. FINDINGS: LEFT FOOT: Small dorsal and plantar calcaneal spurs. Degenerative changes with hypertrophic change at the tarsometatarsal joints. Mild degenerative changes in the first metatarsophalangeal joint. RIGHT FOOT: Small dorsal and plantar calcaneal spurs. Mild degenerative changes in the first metatarsophalangeal joint. XR/XR foot RT min 3V IMPRESSION: 1. Small bilateral calcaneal spurs. 2. Degenerative changes in the bilateral feet. 3. No displaced fracture. Recommend follow-up imaging in 10-14 days if fracture is suspected.
[2024-04-22 11:32] LABS: MANUAL DIFF FLAG NO
[2024-04-22 13:02] LABS: Basophils Percent Auto 0.4 % (0-2); Eosinophils Absolute Auto 0.4 X10*3/uL (0.0-0.4); Eosinophils Percent Auto 4.2 % (0-4); Hematocrit 39.9 % (42.0-52.0); Hemoglobin 12.8 g/dl (14.0-18.0); Imm Gran Abs Auto 0.03 X10*3/uL (0.00-0.03); Imm Gran Pct Auto 0.4 % (0.0-0.4); Lymphocytes Absolute Auto 2.6 X10*3/uL (1.2-4.9); Lymphocytes Percent Auto 30.8 % (20-40); Mean Corpuscular HGB Conc 32.1 g/dl (31.0-36.0); Mean Corpuscular Hemoglobin 27.9 pg (27.0-33.0); Mean Corpuscular Volume 86.9 fL (80.0-98.0); Mean Platelet Volume 10.4 fL (9.4-12.4); Monocytes Absolute Auto 0.7 X10*3/uL (0.1-1.2); Monocytes Percent Auto 8.5 % (2-11); Neutrophils Absolute Auto 4.8 x10*3/uL (2.0-8.3); Neutrophils Percent Auto 55.7 % (45-73); Platelet Count 173 X10*3/uL (160-400); Red Blood Count 4.59 X10*6/uL (4.60-5.80); Red Cell Distribution Width 14.7 % (11.0-16.0); White Blood Count 8.5 X10*3/uL (4.8-10.8)
[2024-04-22 13:08] LABS: Appearance Urine Clear; Color Urine Yellow; Glucose Urine UA Negative (Negative); Leukocyte Esterase Urine Negative (Negative); Nitrite Urine Negative (Negative); Specific Gravity - Urine 1.025 (1.005-1.025); Urine Blood Negative (Negative); Urine Ketones Negative (Negative); Urine Protein Negative (Neg-Trace)
[2024-04-22 14:13] LABS: Alanine Aminotransferase 20 U/L (0-40); Alkaline Phosphatase 75 U/L (39-117); Anion Gap 13 (12-20); Aspartate Amino Transferase 23 U/L (5-37); Bilirubin Total 0.6 mg/dL (0.0-1.0); Blood Urea Nitrogen 15 mg/dL (9-16); Calcium 9.2 mg/dL (8.4-10.2); Carbon Dioxide 27 mmol/L (22-29); Chloride 106 mmol/L (96-108); Cholesterol 187 mg/dL (<200); Estimated Glomerular Filt Rate > 60; Glucose Fasting 84 mg/dL (60-99); HDL Cholesterol 56 mg/dL (>40); LDL Cholesterol Calculated 103 mg/dL (<100); Sodium 142 mmol/L (135-145); TSH reflex Free T4 1.81 uIU/mL (0.32-4.0); Triglycerides 143 mg/dL (<150); Vitamin D 25-OH Total 50.8 ng/mL (>30)
[2024-04-22 14:14] LABS: Folate 9.3 ng/mL (> or = 4.0); Vitamin B12 591 pg/mL (200-900)
== END 2024-04-22 11:19 | disposition home or self-care (01) ==
LOC: HO.XRAY 11:18
PROVIDERS: PCP Internal Medicine; Visit Provider Internal Medicine
DX: I10 Essential (primary) hypertension (principal); E78.00 Pure hypercholesterolemia, unspecified; R30.0 Dysuria; E55.9 Vitamin D deficiency, unspecified; E53.8 Deficiency of other specified B group vitamins; M79.671 Pain in right foot; M79.672 Pain in left foot
CPT/HCPCS: 36415; 73630; 80053; 80061; 81003; 82306; 82607; 82746; 84443; 85025

== ENCOUNTER 2024-05-05 08:11 | Day surgery (SDC) | payer OTHER, SELFPAY ==
[2024-05-05 08:30] VITALS: BP 145/57; PULSE 67; RESP 20; TEMP 36.3; O2SAT 98; BMI 35.6
--- NOTE | 2024-05-05 08:35 | P.CONAN_ITS ---
[facility] Active Problems Active Problems: All Active Problems Pain in both feet (Acute) Asthma exacerbation (Acute) Varicose veins of right lower extremity with inflammation (Acute) Varicose veins of bilateral lower extremities with pain (Acute) Annual physical exam (Acute) Dermatitis (Acute) Vitamin D deficiency (Acute) Recurrent epistaxis (Acute) Pre-op evaluation (Acute) Insomnia (Acute) Memory impairment (Acute) Medicare annual wellness visit, initial (Acute) Irritable bowel syndrome with both constipation and diarrhea (Acute) Vision impairment (Acute) Low TSH level (Acute) 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) Abdominal pain (Acute) Dyspnea (Acute) GERD (gastroesophageal reflux disease) (Acute) Abdominal cramping (Acute) Anxiety (Acute) Allergic rhinitis (Acute) Diarrhea (Acute) Tubular adenoma of colon (Acute) Anemia (Acute) Obesity (BMI 30-39.9) (Acute) Pruritic rash (Acute) Pain of right heel (Acute) Bilateral ankle pain (Acute) Shoulder pain, bilateral (Acute) Colon cancer screening (Acute) Asthma (Acute) Impaired glucose tolerance (Acute) PAD (peripheral artery disease) (Acute) Varicose veins of left lower extremity with inflammation (Acute) Past Medical History Medical History Dermatitis Vitamin D deficiency Abdominal pain Dyspnea Anxiety Allergic rhinitis Anemia Obesity (BMI 30-39.9) Pruritic rash Pain of right heel Bilateral ankle pain Shoulder pain, bilateral COVID-19 Asthma Family History Family History Father Cancer Mother No problems noted. Son No problems noted. Daughter No problems noted. Brother No problems noted. Sister No problems noted. Other Diabetes HTN (hypertension) Family history of problems with anesthesia: No Surgical History Surgical History Hx of colonoscopy History of Problems with Anesthesia: No Social History Social History Housing: Apartment Alcohol intake: current Alcohol intake frequency: does not drink Alcohol type: beer and hard liquor Patient Tobacco Use Status: Never used Tobacco e-Cigarette/Vaping Use: Never Used Second Hand Smoke Exposure: Yes Are you DNR?: No Advance Directives: No Advance Directives Information Provided: No Advance Directives on File: No service: No Current occupational status: disabled Cognitive needs: No Hearing needs: No Vision needs: Yes (glasses) Meds Allergies Allergy/AdvReac Type Severity Reaction Status Date / Time No Known Drug Allergies Allergy Unknown none Verified 04/21/24 15:52 latex Allergy Rash Verified 04/21/24 15:52 Active Medications: Current Medications Lactated Ringer's (Lr) 1,000 mls @ 50 mls/hr IVCONT .Q20H MERCEDES Home Medications ?Medication ?Instructions ?Recorded ?Confirmed ?Last Taken ?Type fluticasone propionate 50 2 spray intranasal DAILY PRN 09/03/23 04/21/24 Unknown History mcg/actuation nasal spray,suspension Exam Height,Weight and Vital Signs: Height 5 ft 10 in Weight 112.627 kg Last Vital Signs Temp 97.4 F 05/05/24 08:30 Pulse 67 05/05/24 08:30 Resp 20 05/05/24 08:30 BP 145/57 H 05/05/24 08:30 Pulse Ox 98 05/05/24 08:30 O2 Del Method Room Air 05/05/24 08:30 Airway Mallampati Class: III (missing a couple on the bottom) TM Dist: >3cm Neck ROM: Full Heart: rrr Lungs: cta Assessment and Plan Assessment Anesthesia Assessment: Anesthesia Plan Discussed and Chart Reviewed Final Anesthetic Review Family History of Problems with Anesthesia: No History of Problems with Anesthesia: No NPO: Yes ASA Class: III Final Preanesthetic Review: No Changes in Pt Med Stat, Meds/Allgs Chart Reviewed and Consent Obtained/Reviewed Patient Risk: Intermediate Procedure Risk: Intermediate Anesthetic Plan Anesthetic Plan: MAC: Disposition: Standard PACU
[2024-05-05] MEDS: Lactated Ringers 1,000 ML 50 ML IVCONT (08:49)
--- NOTE | 2024-05-05 09:06 | MHC.SHP ---
Pre-Procedural Eval Section A - 24 Hr Update-Section A only Date of Service: 05/05/24 Section B - Complete if H&P > 30 days Chief Complaint: Gastro-esophageal reflux disease without esophagit Details of Present Illness: hx of colon polyps--father with CRC Relevant Family History (Specify if Yes): Yes Relevant Social History: None Present Medications: see Short Stay Collaborative assessment Medical History: Significant History (Dermatitis Vitamin D deficiency Abdominal pain Dyspnea Anxiety Allergic rhinitis Anemia Obesity (BMI 30-39.9) Pruritic rash Pain of right heel Bilateral ankle pain Shoulder pain, bilateral COVID-19 Asthma) History of Previous Operations: Relevant previous surgery/procedure and date(s) (Hx of colonoscopy) Allergies: Allergies Allergy/AdvReac Type Severity Reaction Status Date / Time No Known Drug Allergies Allergy Unknown none Verified 04/21/24 15:52 latex Allergy Rash Verified 04/21/24 15:52 Review of Systems Sugical H&P ROS: Negative: Constitution, Cardiovascular, Respiratory, Neurological, Psychiatric, Hem-Onc, Allergic/Immunologic, Gastrointestinal, Genitourinary, Musculoskeletal, Integumentary, Endocrine and Eyes/Ears/Nose/Throat Exam Surgical H&P Exam: Normal: HEENT, Normal: Heart, Normal: Lungs, Normal: Extremities, Normal: Abdomen, Normal: Skin and Normal: Neurological Plan Diagnosis/Plan: Unchanged I have reviewed the history and physical and performed a pertinent physical examination on my patient. No changes have occurred unless specified. Time Spent With Patient Time: Total time managing care of this patient today ____ minutes.
[2024-05-05 09:11] VITALS: PULSE 86; RESP 16; O2SAT 98
[2024-05-05] MEDS: Albuterol Sulfate (0.083%) 2.5 MG/3 ML VIAL.NEB INHALE (09:11)
--- NOTE | 2024-05-05 09:55 | HO.OPN-COLON ---
Colonoscopy Operative Note Operative Note Date of Service: 05/05/24 Narrative: Operative Information Procedure Description: EGD, Colonoscopy Indication: hx of polyps, GERD Anesthesia: MAC FLEXIBLE TRANSORAL UPPER GASTROINTESTINAL ENDOSCOPY AND COLONOSCOPY PROCEDURE NOTE UPPER ENDOSCOPY Consent: Indications for the procedure and potential complications of bleeding, perforation, reaction to medications and missed diagnosis were discussed with the patient and informed consent was obtained. Instrument: Olympus GIF H 190 J mid size upper endoscope Monitoring: Vital signs and clinical assessment, continuous EKG monitoring, Pulse oximetry, Carbon Dioxide monitoring and blood pressure monitoring were done throughout the procedure. Procedure: The patient was placed in the left lateral decubitis position and pre-procedure medications were administered and a bite block was placed. The endoscope was inserted into the mouth and advanced under direct vision to the third part of duodenum. A careful inspection was made as the upper endoscope was withdrawn including a retroflexed examination of the proximal stomach; Findings and interventions are described below. Findings: Larynx:normal Esophagus: GE junction at 40 cm, diaphragm hiatus at 40 cm, bx taken from GEJ, distal and proximal esophagus, LES was lax and there were tertiary contractions Stomach: Mild patchy erythema. Biopsies were obtained. Grade 2 flap valve on retroflexed examination of the cardia. Duodenum: Normal bulb and descending duodenum, Intervention: Biopsies as noted above, COLONOSCOPY Instrument: Olympus variable stiffness pediatric scope 190L Colonoscopy Monitoring: Vital signs and clinical assessment, continuous EKG monitoring, Pulse oximetry, Carbon Dioxide monitoring and blood pressure monitoring were done throughout the procedure. Colon withdrawal time was 14 minutes. Procedure: The patient was placed in the left lateral decubitis position and pre-procedure medications were administered. After a digital rectal examination of the ano-rectum, the video colonoscope was inserted into the rectum and advanced through the colon to the cecum/TI. The colonoscope was slowly withdrawn in a retrograde panoramic fashion and the colon mucosa was carefully examined including a retroflexed view of the rectum. Findings and interventions are described below. Procedure Difficulty:moderate Findings: Terminal Ileum-normal Cecum:normal Ascending Colon: normal Transverse Colon - 8-9 mm sessile polyp removed with cold snare Descending Colon: x4 sessile polyps 6-9 mm, three removed with cold snare and one with cold forceps Sigmoid Colon: normal Rectum: Retroflexion with small internal hemorrhoids, grade I, 10 mm sessile polyp removed with cold snare Anorectum - normal Colon preparation: [place] Bowel Preparation Scale Right colon; 2 Transverse colon: 2 Left colon; 2 (0 = Unprepared colon segment with mucosa not seen due to solid stool that cannot be cleared. 1 = Portion of mucosa of the colon segment seen, but other areas of the colon segment not well seen due to staining, residual stool and/or opaque liquid. 2 = Minor amount of residual staining, small fragments of stool and/or opaque liquid, but mucosa of colon segment seen well. 3 = Entire mucosa of colon segment seen well with no residual staining, small fragments of stool or opaque liquid) Impression and Post Procedure Diagnosis: Endoscopy Findings: lax LES mild gastritis Colonoscopy Findings: colon polyps internal hemorrhoids Plan: Await Pathology results Repeat Colonoscopy in 2-3 years due to polyp burden and FH of CRC or earlier if clinically indicated High fiber diet leaflet avoid straining at stool, epsom salts and sitz bath, anusol supps or cream Above findings were reviewed with the patient and relevant handouts were provided if indicated.
[2024-05-05 10:01] VITALS: BP 111/54; PULSE 84; RESP 16; TEMP 36.6; O2SAT 100
[2024-05-05 10:06] VITALS: BP 110/66; PULSE 80; RESP 18; O2SAT 97
[2024-05-05 10:11] VITALS: BP 106/60; PULSE 76; RESP 18; O2SAT 97
[2024-05-05 10:16] VITALS: BP 104/72; PULSE 71; RESP 18; TEMP 36.9; O2SAT 96
== END 2024-05-05 11:09 | disposition home or self-care (01) ==
PROVIDERS: PCP Internal Medicine; Visit Provider Internal Medicine Gastroenterology
PROC: (CPT 45385; principal; 2024-05-05 09:20)
DX: K58.2 Mixed irritable bowel syndrome (principal); Z86.010 Personal history of colon polyps; D12.3 Benign neoplasm of transverse colon; D12.4 Benign neoplasm of descending colon; D12.8 Benign neoplasm of rectum; K64.0 First degree hemorrhoids; K21.9 Gastro-esophageal reflux disease without esophagitis; K22.89 Other specified disease of esophagus; K29.60 Other gastritis without bleeding; K44.9 Diaphragmatic hernia without obstruction or gangrene; D64.9 Anemia, unspecified; J45.909 Unspecified asthma, uncomplicated; L30.9 Dermatitis, unspecified; E66.9 Obesity, unspecified; Z68.34 Body mass index [BMI] 34.0-34.9, adult; Z79.51 Long term (current) use of inhaled steroids; Z79.899 Other long term (current) drug therapy; Z91.040 Latex allergy status
CPT/HCPCS: 45385; 45380; 43239; 88305; 88313; 88342; 94640; J2704

== ENCOUNTER → 2024-05-05 08:11 | Outpatient (BNV) | payer OTHER, SELFPAY | PROVIDERS: PCP Internal Medicine; Visit Provider Internal Medicine Gastroenterology | DX: Z12.11 Encounter for screening for malignant neoplasm of colon (principal); Z86.010 Personal history of colon polyps; D12.3 Benign neoplasm of transverse colon; D12.8 Benign neoplasm of rectum; D12.4 Benign neoplasm of descending colon; K64.0 First degree hemorrhoids; K21.9 Gastro-esophageal reflux disease without esophagitis; K29.70 Gastritis, unspecified, without bleeding | CPT/HCPCS: 43239; 45380; 45385 ==

== ENCOUNTER 2024-05-19 10:45 | Outpatient (AMB) | payer OTHER, SELFPAY ==
--- NOTE | 2024-05-19 10:56 | A.OFFVIS_ITS ---
Vital Signs 05/19/24 11:05 BP 134/73 Blood Pressure Location Rt brachial Position Sitting Pulse 65 Pulse Source Monitor Intake Visit Reasons: S/P Double; Dr. Cohen Intake Note: Patient is present for follow up S/P Double with Dr Cohen Patient reports Behavior Management Specialist Required: Yes Behavior Management Specialist Language: Indian Accompanied by: Self / Same As Patient Allergies No Known Drug Allergies Allergy (Unknown, Verified 05/19/24 11:07) none latex Allergy (Verified 05/19/24 11:07) Rash HPI HPI S/P Double; Dr. Cohen: Details: Assessment & Plan (1) Irritable bowel syndrome with both constipation and diarrhea: Code(s): K58.2 - Mixed irritable bowel syndrome Category: Medical (2) GERD (gastroesophageal reflux disease): Code(s): K21.9 - Gastro-esophageal reflux disease without esophagitis Category: Medical Qualifiers: Esophagitis presence: without esophagitis Qualified Code(s): K21.9 - Gastro-esophageal reflux disease without esophagitis Plan PUERTO RICAN #[id number], Darryl Doing well on his meds. He continues on his omeprazole in his dicyclomine with good control who have GI conditions. Keep 05/19 appt after colonoscopy COLONOSCOPY/EGD 05/05/24 Findings: Larynx:normal Esophagus: GE junction at 40 cm, diaphragm hiatus at 40 cm, bx taken from GEJ, distal and proximal esophagus, LES was lax and there were tertiary contractions Stomach: Mild patchy erythema. Biopsies were obtained. Grade 2 flap valve on retroflexed examination of the cardia. Duodenum: Normal bulb and descending duodenum, Findings: Terminal Ileum-normal Cecum:normal Ascending Colon: normal Transverse Colon - 8-9 mm sessile polyp removed with cold snare Descending Colon: x4 sessile polyps 6-9 mm, three removed with cold snare and one with cold forceps Sigmoid Colon: normal Rectum: Retroflexion with small internal hemorrhoids, grade I, 10 mm sessile polyp removed with cold snare Anorectum - normal Impression and Post Procedure Diagnosis: Endoscopy Findings: lax LES mild gastritis Colonoscopy Findings: colon polyps internal hemorrhoids Plan: Await Pathology results Repeat Colonoscopy in 2-3 years due to polyp burden and FH of CRC or earlier if clinically indicated High fiber diet leaflet avoid straining at stool, epsom salts and sitz bath, anusol supps or cream BIOPSY Received: 05/05/24 Diagnosis A. Colon, transverse, polypectomy: Fragments of tubular adenoma; negative for high-grade dysplasia or carcinoma. B. Colon, descending, polypectomies (4): Fragments of tubular adenomata; negative for high-grade dysplasia or carcinoma. C. Rectum, polypectomy: Fragments of tubular adenoma; negative for high-grade dysplasia or carcinoma. D. Stomach, biopsy: Antral-type with moderate chronic, focally active, inflammation and intestinal metaplasia; negative for dysplasia; no Helicobacter organisms seen. E. EG junction, biopsy: - Cardiac-type mucosa with moderate chronic active inflammation and focal intestinal metaplasia; negative for dysplasia. - Squamous epithelium within normal limits. F. Esophagus, distal, biopsy: Squamous mucosa within normal limits; no inflammation seen. G. Esophagus, proximal, biopsy: Squamous epithelium within normal limits; no inflammation seen. 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 The procedure was well tolerated. The results were explained and the patient is agreeable to the follow-up interval as stated. The bowel pattern has returned to normal. Education was provided to tell any 1st degree relatives about their findings to be sure that they are screened by age 45. Educated that they will be put on a recall list when it is time for their repeat scope but should they move out of state or away from the hospital they will need to remember along with their primary to repeat the procedure in a timely fashion to avoid any adverse complications. Will increase o2o to bid r/t the evidence of focal SSBE and active esophagitis to 40mg bid. He is only taking bently 20mg bid and this is controlling his cramping, he had too many s/e of fatigue. He is c/o increased bilateral lower leg edema and asks if it is caused by the medications, but I really don't think so. He has a hx of PAD and PVD and sees a vein specialists. He has had surgeries, and has compression stockings but does not like them. He may need a diuretic but I leave this to his specialists. He does not like pills, but he may not be able to significantly reduce his use until he loses some weight as he has central adiposity. ROV 3 mos. [facility] Medical History Medicare annual wellness visit, initial Dermatitis Vitamin D deficiency Abdominal pain Dyspnea Anxiety Allergic rhinitis Anemia Obesity (BMI 30-39.9) Pruritic rash Pain of right heel Bilateral ankle pain Shoulder pain, bilateral COVID-19 Asthma Surgical History Hx of colonoscopy Family History Father Cancer Mother No problems noted. Son No problems noted. Daughter No problems noted. Brother No problems noted. Sister No problems noted. Other Diabetes HTN (hypertension) Social History Housing: Apartment Alcohol intake: current Alcohol intake frequency: does not drink Alcohol type: beer and hard liquor Patient Tobacco Use Status: Never used Tobacco e-Cigarette/Vaping Use: Never Used Second Hand Smoke Exposure: Yes service: No Current occupational status: disabled Cognitive needs: No Hearing needs: No Vision needs: Yes (glasses) Review of Systems Const Denies fatigue, Denies fever(s), Denies night sweats, Denies poor appetite and Denies weight loss Eyes Details: glasses Reports requires corrective lenses ENT Reports Normal hearing present, Denies dental pain, Denies dysphagia, Denies hearing loss, Denies mouth pain, Denies odynophagia, Denies throat swelling, Denies tongue swelling and Reports other (Dentition adequate) Card Reports leg edema Resp Reports no additional complaints GI Details: Denies abdominal pain, Denies melena, Denies bloating, Denies hematochezia, Denies constipation, Denies GI cramping, Denies dysphagia, Denies excessive flatus, Denies early satiety, Reports heartburn, Denies diarrhea, Denies nausea, Denies odynophagia, Denies vomiting and Denies hematemesis Skin/Breast Denies pruritus, Denies lesions, Denies rash and Denies jaundice Neuro Reports Normal hearing present and Denies Abnormal speech present Endo Denies fatigue Aller/Immun Denies throat swelling and Denies tongue swelling Physical Exam Vital Signs: Last Vital Signs Pulse 65 05/19/24 11:05 BP 134/73 05/19/24 11:05 Const General: cooperative, no acute distress, well developed and well groomed Nutritional Appearance: well nourished and obese centrally obese Orientation/consciousness: oriented to person, oriented to place and oriented to time Limitations: language barrier HEENT Head: Yes normocephalic and Yes atraumatic Eyes General: appearance normal, both eyes and all related structures Pupils: Equal, round and reactive pupils present Neck Neck: Yes normal visual inspection and Yes no lymphadenopathy Thyroid: Thyroid normal Resp Effort & Inspection: normal respiratory effort and able to speak in complete sentences Auscultation: clear to auscultation bilaterally Cardio Rate: regular rate Rhythm: regular rhythm Heart sounds: Normal, physiologic split S2 sound present Peripheral pulses: radial pulses present and posterior tibial pulses present GI Inspection: No distended, No Abdominal panniculus present and Yes obesity Palpation (GI): Soft to palpation, nontender, no guarding, not rigid and No hepatosplenomegaly present Percussion: Yes normal to percussion Auscultation: normal bowel sounds Rectal Exam - Male: Yes deferred Skin General skin exam: no rashes or lesions noted, turgor normal, skin not dry, no jaundice, No spider nevi and no striae Rashes: no rashes Nails: normal Neuro General: oriented to person, oriented to place and oriented to time Cranial nerves: Yes Equal, round and reactive pupils present and Yes Normal hearing present Speech: No Abnormal speech present Extrem General: Yes normal to inspection, No clubbing, No cyanosis and No edema Psych Appearance: grossly normal and well kempt Mental Status: mental status grossly normal Speech and movement: Normal speech and movement present Affect: normal affect Attitude: cooperative Thought process: Normal thought process present and not confabulating Thought content: Normal thought content present Insight: Limited insight present (Psych) Judgement: Limited judgement present (Psych) Assessment & Plan Assessment & Plan (1) Irritable bowel syndrome with both constipation and diarrhea: Code(s): K58.2 - Mixed irritable bowel syndrome Category: Medical (2) GERD (gastroesophageal reflux disease): Code(s): K21.9 - Gastro-esophageal reflux disease without esophagitis Category: Medical Qualifiers: Esophagitis presence: without esophagitis Qualified Code(s): K21.9 - Gastro-esophageal reflux disease without esophagitis (3) 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 The procedure was well tolerated. The results were explained and the patient is agreeable to the follow-up interval as stated. The bowel pattern has returned to normal. Education was provided to tell any 1st degree relatives about their findings to be sure that they are screened by age 45. Educated that they will be put on a recall list when it is time for their repeat scope but should they move out of state or away from the hospital they will need to remember along with their primary to repeat the procedure in a timely fashion to avoid any adverse complications. Will increase o2o to bid r/t the evidence of focal SSBE and active esophagitis to 40mg bid. He is only taking bently 20mg bid and this is controlling his cramping, he had too many s/e of fatigue. He is c/o increased bilateral lower leg edema and asks if it is caused by the medications, but I really don't think so. He has a hx of PAD and PVD and sees a vein specialists. He has had surgeries, and has compression stockings but does not like them. He may need a diuretic but I leave this to his specialists. He does not like pills, but he may not be able to significantly reduce his use until he loses some weight as he has central adiposity. ROV 3 mos. Medications: Changed From omeprazole 40 mg PO DAILY 90 caps 2RF K22.70 - Trivedi's esophagus without dysplasia To omeprazole 40 mg PO BID 180 caps 2RF K22.70 - Trivedi's esophagus without dysplasia Discontinued peg 3350-electrolytes 236-22.74-6.74 -5.86 gram until fecal effluent is clear; do not exceed a total volume of 2,000 mL Discontinued Reason: Patient Completed Course 240 mL PO Q10M 1 day 4,000 mL 0RF Z12.11 - Encounter for screening for malignant neoplasm of colon famotidine Discontinued Reason: Doctor's Order 40 mg PO BEDTIME 90 tabs 1RF K21.9 - Gastro-esophageal reflux disease without esophagitis Coding Level of Care Code Est Pt Level 3 (45549) Diagnoses Irritable bowel syndrome with both constipation and diarrhea K58.2 Gastroesophageal reflux disease without esophagitis K21.9 Esophagitis presence: without esophagitis 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
[2024-05-19 11:05] VITALS: BP 134/73; PULSE 65
== END 2024-05-19 11:50 | disposition home or self-care (01) ==
PROVIDERS: PCP Internal Medicine; Visit Provider Nurse Practitioner
DX: K58.2 Mixed irritable bowel syndrome (principal); K21.9 Gastro-esophageal reflux disease without esophagitis; K22.70 Barrett's esophagus without dysplasia
CPT/HCPCS: 99213

== ENCOUNTER → 2024-05-19 10:45 | Outpatient (BNVA) | payer OTHER, SELFPAY | PROVIDERS: PCP Internal Medicine; Visit Provider Nurse Practitioner | DX: K58.2 Mixed irritable bowel syndrome (principal); K21.9 Gastro-esophageal reflux disease without esophagitis; K22.70 Barrett's esophagus without dysplasia | CPT/HCPCS: 99212 ==

== ENCOUNTER 2024-07-29 12:20 | Outpatient (REF) | payer OTHER, SELFPAY ==
[2024-07-29 12:53] LABS: MANUAL DIFF FLAG NO
[2024-07-29 13:20] LABS: Appearance Urine Clear; Color Urine Yellow; Glucose Urine UA Negative (Negative); Leukocyte Esterase Urine Negative (Negative); Nitrite Urine Negative (Negative); PH 6.5 (5.0-9.0); Specific Gravity - Urine 1.015 (1.005-1.025); Urine Blood Negative (Negative); Urine Ketones Negative (Negative); Urine Protein Negative (Neg-Trace)
[2024-07-29 13:59] LABS: Basophils Percent Auto 0.4 % (0-2); Eosinophils Absolute Auto 0.3 X10*3/uL (0.0-0.4); Eosinophils Percent Auto 3.9 % (0-4); Hematocrit 38.9 % (42.0-52.0); Hemoglobin 12.5 g/dl (14.0-18.0); Imm Gran Abs Auto 0.02 X10*3/uL (0.00-0.03); Imm Gran Pct Auto 0.3 % (0.0-0.4); Lymphocytes Absolute Auto 1.9 X10*3/uL (1.2-4.9); Lymphocytes Percent Auto 26.5 % (20-40); Mean Corpuscular HGB Conc 32.1 g/dl (31.0-36.0); Mean Corpuscular Hemoglobin 27.9 pg (27.0-33.0); Mean Corpuscular Volume 86.8 fL (80.0-98.0); Mean Platelet Volume 10.3 fL (9.4-12.4); Monocytes Absolute Auto 0.6 X10*3/uL (0.1-1.2); Monocytes Percent Auto 8.7 % (2-11); Neutrophils Absolute Auto 4.2 x10*3/uL (2.0-8.3); Neutrophils Percent Auto 60.2 % (45-73); Platelet Count 169 X10*3/uL (160-400); Red Blood Count 4.48 X10*6/uL (4.60-5.80); Red Cell Distribution Width 14.6 % (11.0-16.0)
[2024-07-29 14:55] LABS: Alanine Aminotransferase 23 U/L (0-40); Alkaline Phosphatase 75 U/L (39-117); Anion Gap 9 (12-20); Aspartate Amino Transferase 28 U/L (5-37); Bilirubin Total 0.6 mg/dL (0.0-1.0); Blood Urea Nitrogen 12 mg/dL (9-16); Calcium 9.1 mg/dL (8.4-10.2); Carbon Dioxide 28 mmol/L (22-29); Chloride 107 mmol/L (96-108); Cholesterol 174 mg/dL (<200); Estimated Glomerular Filt Rate > 60; Glucose Fasting 96 mg/dL (60-99); HDL Cholesterol 48 mg/dL (>40); LDL Cholesterol Calculated 88 mg/dL (<100); Sodium 140 mmol/L (135-145); Triglycerides 192 mg/dL (<150); Vitamin D 25-OH Total 43.8 ng/mL (>30)
== END 2024-07-29 12:21 | disposition home or self-care (01) ==
LOC: HO.LAB 12:20
PROVIDERS: PCP Internal Medicine; Visit Provider Internal Medicine
DX: E78.00 Pure hypercholesterolemia, unspecified (principal); I10 Essential (primary) hypertension; E55.9 Vitamin D deficiency, unspecified; R30.0 Dysuria
CPT/HCPCS: 36415; 80053; 80061; 81003; 82306; 85025

== ENCOUNTER 2024-08-04 14:24 | Outpatient (AMB) | payer OTHER, SELFPAY ==
[2024-08-04 14:28] VITALS: BP 116/84; PULSE 79; O2SAT 99; BMI 34.4
--- NOTE | 2024-08-04 14:28 | MHC.PC.OV ---
Vital Signs 08/04/24 14:28 Height 5 ft 10 in Weight 240 lb BMI 34.4 BP 116/84 Blood Pressure Location Lt brachial Position Sitting Pulse 79 Pulse Source Pulse Oximeter Pulse Oximetry (%) 99 Oxygen Delivery Method Room Air Intake Visit Reasons: 3m f/u Mission Planner Required: No Accompanied by: Self / Same As Patient Allergies No Known Drug Allergies Allergy (Unknown, Verified 08/04/24 15:05) none latex Allergy (Verified 08/04/24 15:05) Rash Medication List - Last Reconciled 08/04/24 by Volodymyr Keller MD cholecalciferol (vitamin D3) 50 mcg PO DAILY 90 days citalopram 10 mg PO DAILY cyanocobalamin (vitamin B-12) 1,000 mcg PO DAILY 90 days dicyclomine 20 mg PO QID fluticasone propionate 50 mcg/actuation 2 sprays intranasal DAILY PRN ipratropium-albuterol 0.5 mg-3 mg(2.5 mg base)/3 mL 3 mL inhalation Q6-8H PRN 30 days mometasone 200 mcg/actuation (Asmanex HFA) 1 puff inhalation BID omeprazole 40 mg PO BID sodium,potassium,mag sulfates 17.5-3.13-1.6 gram (Suprep Bowel Prep Kit) 480 mL orally; trazodone 50 mg PO BEDTIME PRN 30 days triamcinolone acetonide 0.025% 1 appl topical TID PRN Tobacco use date assessed: 08/04/24 Dental Screening Dental Screen Date: 08/04/24 Did you have a dental visit in the last 12 months?: No Did you have a dental problem in the last 6 months where you did not have access to dental care?: No Was dental information given to patient?: Patient has dentist HPI 3mth f/u HPI Details Patient comes in today for his follow up visit States that he feels okay except for increasing pain over both of his shoulders lately He denies any recent injury or trauma to his shoulders He denies any headaches or dizziness Denies any chest pains, no increased SOB No nausea/vomiting, no abdominal pain No change in bowel habits noted Still has on and off swelling of both lower legs, ankles and feet and notes that his ankles and feet are slightly swollen again at present He denies any increased pain in his lower extremities aside from his heels Needs a couple of his Rx refilled He had his follow up labs done last week - to discuss his results [facility] Medical History (Updated 08/05/24 @ 04:55 by Volodymyr Keller MD) Impaired fasting glucose Dermatitis Vitamin D deficiency Anxiety Allergic rhinitis Anemia Obesity (BMI 30-39.9) Pruritic rash COVID-19 Asthma Surgical History Hx of colonoscopy Family History Father Cancer Mother No problems noted. Son No problems noted. Daughter No problems noted. Brother No problems noted. Sister No problems noted. Other Diabetes HTN (hypertension) Social History Housing: Apartment Alcohol intake: current Alcohol intake frequency: does not drink Alcohol type: beer and hard liquor Patient Tobacco Use Status: Never used Tobacco e-Cigarette/Vaping Use: Never Used Second Hand Smoke Exposure: Yes service: No Current occupational status: disabled Cognitive needs: No Hearing needs: No Vision needs: Yes (glasses) Questionnaire PHQ-9 Over the last 2 weeks, how often have you been bothered by any of the following problems? 1. Little interest or pleasure in doing things: not at all 2. Feeling down, depressed, or hopeless: not at all 3. Trouble falling or staying asleep, or sleeping too much: several days 4. Feeling tired or having little energy: not at all 5. Poor appetite or overeating: not at all 6. Feeling bad about yourself - or that you are a failure or have let yourself or your family down: not at all 7. Trouble concentrating on things, such as reading the newspaper or watching television: not at all 8. Moving or speaking so slowly that other people could have noticed. Or the opposite - being so fidgety or restless that you have been moving around a lot more than usual: not at all 9. Thoughts that you would be better off or of hurting yourself in some way: not at all Total score: 1 Depression Screening Interpretation: Negative Depression Screening Done: Yes 16550 - PHQ-9 Billing: Yes Source: Developed by Drs. Matt Munoz, Halina Moscoso, Luis Mckeon and colleagues, with an educational danika from [employer]. Thrive Questionnaire Date Thrive assessed: 08/04/24 I am a: Patient What is your living situation today?: I have a steady place to live Within the past 12 months, did the food you bought not last and you didn't have the money to get more?: Never true Within the past 12 months, did you worry whether your food would run out before you got money to buy more?: Never true Do you have trouble paying for medicines?: No Do you have trouble getting transportation to medical appointments?: No Do you have trouble paying your heating and electricity bill?: No Do you have trouble taking care of your child, family member or friend?: No Do you have trouble with day-to-day activities such as bathing, preparing meals, shopping, managing finances, etc.?: No Are you currently unemployed and looking for a job?: Yes Are you interested in more education?: No Please select the resources that you would like help with: None Currently or been in a relationship where the following occur: No concerns reported THRIVE Score: 0 AUDIT C Alcohol Use Questionnaire (AUDIT-C) 1. How often do you have a drink containing alcohol?: Never 3. How often do you have six or more drinks on one occasion?: Never Total Score: 0 Score Reviewed/Action Taken: Yes DESHAUN-7 AMB Questionnaire DESHAUN-7 Date DESHAUN - 7 assessed: 08/04/24 Feeling nervous, anxious, or on edge: 1 = Several days Not being able to stop or control worryin = Not at all Worrying too much about different things: 0 = Not at all Trouble relaxin = Not at all Being so restless that it is hard to sit still: 0 = Not at all Becoming easily annoyed or irritable: 1 = Several days Feeling afraid as if something awful might happen: 0 = Not at all Total DESHAUN-7 score (0-4 normal; 5-9 mild; 10-14 moderate; 15-21 severe): 2 Source: Developed by Drs. Matt Munoz, Luis Paiz and colleagues, with an educational danika from [employer]. DESHAUN-7 Assessment Billing DESHAUN-7 Assessment Tool: DESHAUN-7 Assessment 48818 Review of Systems Const Denies chills, Denies fatigue, Denies fever(s) and Denies headache(s) ENT Denies dysphagia, Denies dizziness, Denies otalgia, Denies headache(s), Denies neck pain, Denies odynophagia and Denies sore throat Card Denies chest pain, Denies irregular heart rhythm, Denies palpitations and Reports dyspnea on exertion (mild, at times) Resp Denies chest congestion, Denies cough, Reports dyspnea on exertion (mild, at times) and Denies wheezing GI Denies abdominal pain, Denies constipation, Denies dysphagia, Denies heartburn, Denies diarrhea, Denies nausea, Denies odynophagia and Denies vomiting Denies difficulty urinating, Denies dysuria and Denies urinary frequency Musc Denies back pain, Reports arthralgias (increased pain over both shoulders lately) and Denies neck pain Skin/Breast Denies rash Neuro Denies dizziness, Denies headache(s) and Denies paresthesias Endo Denies fatigue and Denies palpitations Nico/Lymph Details: (+) on and off bilateral lower extremity swelling and pain Aller/Immun Denies wheezing Physical exam (Primary Care) Vital Signs: Last Vital Signs Pulse 79 08/04/24 14:28 BP 116/84 08/04/24 14:28 Pulse Ox 99 08/04/24 14:28 Oxygen Delivery Method Room Air 08/04/24 14:28 BMI result Body Mass Index 34.4 Tobacco/Smoking Status: Tobacco use Status Tobacco use date assessed 08/04/24 08/04/24 14:34 Patient Tobacco Use Status Never used Tobacco 08/04/24 14:34 e-Cigarette/Vaping Use Never Used 08/04/24 14:34 PHQ-9: PHQ-9 Score PHQ-9: Total score 1 08/04/24 15:05 Depression Screening Interpretation: Negative Thrive Assessment: Date of Thrive Assessment Date Thrive assessed 08/04/24 08/04/24 14:34 Currently or been in a relationship where the following occur: No concerns reported Const General: no acute distress and alert HENMT Ears: TM's normal bilaterally and EAC's normal Throat: Yes posterior oropharynx normal and Yes tonsils normal (no TP congestion) Neck Neck: Yes no lymphadenopathy and Yes supple Thyroid: Thyroid normal Resp Auscultation: clear to auscultation bilaterally, no crackles, no rales and no wheezes Cardio Rate: regular rate Rhythm: regular rhythm Heart sounds: no murmurs GI Palpation (GI): Soft to palpation and nontender Auscultation: normal bowel sounds General: Yes no CVA tenderness Back/Spine/Pelvis Back: no CVA tenderness Thoracic/Lumbar Spine: No lumbar spinal tenderness Skin Rashes: no rashes Extrem General: No clubbing, No cyanosis and Yes edema (1+ bipedal edema ) Right upper extremity: shoulder/upper arm Details: tenderness Location: of the A-C joint and normal ROM; no swelling Left upper extremity: shoulder/upper arm Details: tenderness Location: of the A-C joint and normal ROM; no swelling Right lower extremity: foot Details: tenderness Location: of the calcaneus Left lower extremity: foot Details: tenderness Location: of the calcaneus Office Procedures Flu Questionnaire Does the patient have a severe egg allergy?: No Immunizations Fluarix Triv [id number] (PF) 45 mcg (15 mcg x 3)/0.5 mL IM syringe Performing Provider: Volodymyr Keller MD Performing Location: [facility] Documented (not given) by: BURKE Mccullough on 08/04/24 14:38 Reason Not Given: Patient Refused Results Reviewed Results Reviewed: Laboratory Tests 04/22/24 07/29/24 07/29/24 11:31 12:52 Unknown WBC 7.0 Hgb 12.5 L Hct 38.9 L Plt Count 169 Sodium 140 Potassium 4.0 Creatinine 1.12 Estimated GFR > 60 Fasting Glucose 96 Calcium 9.1 AST 28 ALT 23 Triglycerides 192 H Cholesterol 174 LDL Cholesterol, Calc 88 HDL Cholesterol 48 25-OH Vitamin D Total 43.8 TSH 1.81 Ur Specific [place] 1.015 Urine Protein Negative Urine Glucose (UA) Negative Urine Blood Negative Urine Nitrite Negative Ur Leukocyte Esterase Negative Coding Level of Care Code Est Pt Level 4 (02487) Diagnoses Mild intermittent asthma without complication J45.20 Asthma severity: mild Asthma persistence: intermittent Asthma complication type: uncomplicated Allergic rhinitis, unspecified seasonality, unspecified trigger J30.9 Allergic rhinitis trigger: unspecified Allergic rhinitis seasonality: unspecified Impaired fasting glucose R73.01 Anemia, unspecified type D64.9 Anemia type: unspecified type Gastroesophageal reflux disease without esophagitis K21.9 Esophagitis presence: without esophagitis Irritable bowel syndrome with both constipation and diarrhea K58.2 Bilateral shoulder pain, unspecified chronicity M25.511; M25.512 Chronicity: unspecified Memory impairment R41.3 Vitamin D deficiency E55.9 Varicose veins of bilateral lower extremities with pain I83.813 Insomnia, unspecified type G47.00 Insomnia type: unspecified Anxiety F41.9 Obesity (BMI 30-39.9) E66.9 Additional Codes DESHAUN-7 Assessment Billing - DESHAUN-7 Assessment Tool: DESHAUN-7 Assessment 89272 ([id number]) Assessment & Plan Assessment & Plan (1) Asthma: Code(s): J45.909 - Unspecified asthma, uncomplicated Category: Medical Qualifiers: Asthma severity: mild Asthma persistence: intermittent Asthma complication type: uncomplicated Qualified Code(s): J45.20 - Mild intermittent asthma, uncomplicated Plan: Controlled lately Continue Asmanex HFA 200 mcg 1 inhalation BID and Albuterol HFA 2 inhalations Q 6 hours PRN OR his nebulizer PRN (2) Allergic rhinitis: Code(s): J30.9 - Allergic rhinitis, unspecified Category: Medical Qualifiers: Allergic rhinitis trigger: unspecified Allergic rhinitis seasonality: unspecified Qualified Code(s): J30.9 - Allergic rhinitis, unspecified Plan: Continue Fluticasone 50 mcg nasal spray QD PRN (3) Impaired fasting glucose: Code(s): R73.01 - Impaired fasting glucose Category: Medical Plan: HgbA1c was normal at 5.3% when checked sometime last year; FBS was normal at 96 mg/dl on his recent labs Reinforced low calorie diet /exercise as tolerated (4) Anemia: Code(s): D64.9 - Anemia, unspecified Category: Medical Qualifiers: Anemia type: unspecified type Qualified Code(s): D64.9 - Anemia, unspecified Plan: He was still mildly anemic on his most recent CBC done last week, with H/H at 12.5/38.9 Iron studies done came back normal; his B12 level was noted to be low when checked last year Continue Vitamin B12 1000 mcg QD Screening colonoscopy done a few years ago in December 2020 revealed a couple of polyps that were removed; bowel prep was poor but colonoscopy was otherwise mostly normal Will continue to monitor his CBC regularly (5) GERD (gastroesophageal reflux disease): Code(s): K21.9 - Gastro-esophageal reflux disease without esophagitis Category: Medical Qualifiers: Esophagitis presence: without esophagitis Qualified Code(s): K21.9 - Gastro-esophageal reflux disease without esophagitis Plan: Dietary restrictions reinforced Continue Famotidine 40 mg Q HS (6) Irritable bowel syndrome with both constipation and diarrhea: Code(s): K58.2 - Mixed irritable bowel syndrome Category: Medical Plan: Continue Dicyclomine 20 mg QID PRN Follow up with GI as scheduled (7) Shoulder pain, bilateral: Code(s): M25.511 - Pain in right shoulder; M25.512 - Pain in left shoulder Category: Medical Qualifiers: Chronicity: unspecified Qualified Code(s): M25.511 - Pain in right shoulder; M25.512 - Pain in left shoulder Plan: Will send patient for x-rays of both shoulders for further evaluation (8) Memory impairment: Code(s): R41.3 - Other amnesia Category: Medical Plan: He was seen by neurology for evaluation back in November 2022 and was advised that his memory issues are most likely due to MCI but he was recommended to get an EEG done as well as a head CT without contrast Head CT done in January 2023 revealed (+) chronic microvascular ischemic changes and there is mild diffuse volume loss EEG done with neurology last year reportedly came back normal (9) Vitamin D deficiency: Code(s): E55.9 - Vitamin D deficiency, unspecified Category: Medical Plan: Continue Vitamin D3 2000 units QD (10) Varicose veins of bilateral lower extremities with pain: Code(s): I83.813 - Varicose veins of bilateral lower extremities with pain Category: Medical Plan: He is advised that his current ankle and feet swelling are likely related to his varicose veins and due to venous insufficiency He is encouraged to continue using compression stockings/socks and keep his legs and feet elevated as often as he can Follow up with vascular surgery as scheduled (11) Insomnia: Code(s): G47.00 - Insomnia, unspecified Category: Medical Qualifiers: Insomnia type: unspecified Qualified Code(s): G47.00 - Insomnia, unspecified Plan: Sleep hygiene reinforced Continue Trazodone 50 mg Q HS PRN (12) Anxiety: Code(s): F41.9 - Anxiety disorder, unspecified Category: Medical Plan: Continue Citalopram 10 mg QD and Lorazepam 0.5 mg 2 to 3 times a day as needed Patient is advised to call if his anxiety persists or gets worse despite Rx (13) Obesity (BMI 30-39.9): Code(s): E66.9 - Obesity, unspecified Category: Medical Plan: Reinforced diet/exercise as tolerated/lose weight Plan Follow up in 4 months Orders: Orders Influenza [id number] Immunization 08/04/24 Z23 - Encounter for immunization XR shoulder LT min 2V 08/04/24 M25.511 - Pain in right shoulder, M25.512 - Pain in left shoulder XR shoulder RT min 2V 08/04/24 M25.511 - Pain in right shoulder, M25.512 - Pain in left shoulder Medications: New albuterol sulfate 90 mcg/actuation (Ventolin HFA) 2 puffs inhalation Q6H 30 days PRN 8.5 grams 5RF shortness of breath or wheezing meloxicam Take with food 7.5 mg PO DAILY 30 days PRN 30 tabs 0RF headache or pain Refilled mometasone 200 mcg/actuation (Asmanex HFA) 1 puff inhalation BID 13 grams 5RF
== END 2024-08-04 15:13 | disposition home or self-care (01) ==
PROVIDERS: PCP Internal Medicine; Visit Provider Internal Medicine
DX: J45.20 Mild intermittent asthma, uncomplicated (principal); E66.9 Obesity, unspecified; J30.9 Allergic rhinitis, unspecified; Z68.34 Body mass index [BMI] 34.0-34.9, adult; R73.01 Impaired fasting glucose; D64.9 Anemia, unspecified; K21.9 Gastro-esophageal reflux disease without esophagitis; K58.2 Mixed irritable bowel syndrome; M25.511 Pain in right shoulder; M25.512 Pain in left shoulder; R41.3 Other amnesia; Z23 Encounter for immunization

== ENCOUNTER → 2024-08-04 14:24 | Outpatient (BNVA) | payer OTHER, SELFPAY | PROVIDERS: PCP Internal Medicine; Visit Provider Internal Medicine | DX: J45.20 Mild intermittent asthma, uncomplicated (principal); R73.01 Impaired fasting glucose; D64.9 Anemia, unspecified; K21.9 Gastro-esophageal reflux disease without esophagitis; K58.2 Mixed irritable bowel syndrome; M25.511 Pain in right shoulder; M25.512 Pain in left shoulder; R41.3 Other amnesia; E55.9 Vitamin D deficiency, unspecified; F41.9 Anxiety disorder, unspecified; E66.9 Obesity, unspecified; G47.00 Insomnia, unspecified; I83.813 Varicose veins of bilateral lower extremities with pain | CPT/HCPCS: 96127; 99212 ==

== ENCOUNTER 2024-08-12 15:00 | Outpatient (REF) | payer OTHER, SELFPAY ==
--- NOTE | ~2024-08-12 | XR_ITS ---
EXAMINATION: XR SHOULDER LEFT 4 VIEWS CLINICAL INFORMATION: Pain in left shoulder M25.512. COMPARISON: None available TECHNIQUE: AP external rotation, Grashey, scapular Y, and axillary views of the left shoulder. FINDINGS: The bones and soft tissues are normal. No fracture. Glenohumeral and acromioclavicular alignment is anatomic with normal joint space. No abnormal soft tissue calcifications. XR/XR shoulder LT min 2V IMPRESSION: Normal left shoulder. Electronically signed by: Jordi Cox MD 10/18/2024 07:28 PM EST RP
== END 2024-08-12 15:01 | disposition home or self-care (01) ==
LOC: HO.XRAY 15:00
PROVIDERS: PCP Internal Medicine; Visit Provider Internal Medicine
DX: M25.511 Pain in right shoulder (principal); M25.512 Pain in left shoulder
CPT/HCPCS: 73030

== ENCOUNTER 2024-08-17 12:39 | Outpatient (AMB) | payer OTHER, SELFPAY ==
[2024-08-17 12:56] VITALS: BP 117/69; PULSE 68; BMI 35.0
--- NOTE | 2024-08-17 12:56 | A.OFFVIS_ITS ---
Vital Signs 08/17/24 12:56 Height 5 ft 10 in Weight 243 lb 13.3 oz BMI 35.0 BP 117/69 Blood Pressure Location Lt brachial Position Sitting Pulse 68 Intake Visit Reasons: 3 month follow up Intake Note: Patient present to in office visit today in 3 months follow up of GERD. CC: Patient c/o lower abdominal pain when he needs to have a BM, and occasional epigastric pain. 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 Accompanied by: Self / Same As Patient Allergies No Known Drug Allergies Allergy (Unknown, Verified 09/29/24 14:22) none latex Allergy (Verified 09/29/24 14:22) Rash HPI HPI 3 month follow up: Details: Assessment & Plan (1) Irritable bowel syndrome with both constipation and diarrhea: Code(s): K58.2 - Mixed irritable bowel syndrome Category: Medical (2) GERD (gastroesophageal reflux disease): Code(s): K21.9 - Gastro-esophageal reflux disease without esophagitis Category: Medical Qualifiers: Esophagitis presence: without esophagitis Qualified Code(s): K21.9 - Gastro-esophageal reflux disease without esophagitis (3) 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 The procedure was well tolerated. The results were explained and the patient is agreeable to the follow-up interval as stated. The bowel pattern has returned to normal. Education was provided to tell any 1st degree relatives about their findings to be sure that they are screened by age 45. Educated that they will be put on a recall list when it is time for their repeat scope but should they move out of state or away from the hospital they will need to remember along with their primary to repeat the procedure in a timely fashion to avoid any adverse complications. Will increase o2o to bid r/t the evidence of focal SSBE and active esophagitis to 40mg bid. He is only taking bently 20mg bid and this is controlling his cramping, he had too many s/e of fatigue. He is c/o increased bilateral lower leg edema and asks if it is caused by the medications, but I really don't think so. He has a hx of PAD and PVD and sees a vein specialists. He has had surgeries, and has compression stockings but does not like them. He may need a diuretic but I leave this to his specialists. He does not like pills, but he may not be able to significantly reduce his use until he loses some weight as he has central adiposity. ROV 3 mos. Medications: Changed From omeprazole 40 mg PO DAILY 90 caps 2RF K22.70 - Trivedi's esophagus without dysplasia To omeprazole 40 mg PO BID 180 caps 2RF K22.70 - Trivedi's esophagus without dysplasia Discontinued peg 3350-electrolytes 236-22.74-6.74 -5.86 gram until fecal effluent is clear; do not exceed a total volume of 2,000 mL Discontinued Reason: Patient Completed Course 240 mL PO Q10M 1 day 4,000 mL 0RF Z12.11 - Encounter for screening for malignant neoplasm of colon famotidine Discontinued Reason: Doctor's Order 40 mg PO BEDTIME 90 tabs 1RF K21.9 - Gastro-esophageal reflux disease without esophagitis TODAYS VISIT [place]ese # Yvan lew Has occasional breakthrough on his omeprazole b.i.d., but also occasionally forgets his second dose. He is having a lot of flatulence and some lower abd pain before and after his BM's - also diarrhea self tx with Pepto Bismol. Change from omeprazole to protonix bid to avoid diarrheal effect and add creon. ROV 6 weeks. [facility] Medical History Pruritic rash Anemia Diarrhea Abdominal pain Dermatitis Impaired fasting glucose [id number] syndrome Varicose veins of left lower extremity with inflammation Colon cancer screening Shoulder pain, bilateral Bilateral ankle pain Pain of right heel Pre-op evaluation Annual physical exam Varicose veins of right lower extremity with inflammation Vitamin D deficiency Anxiety Allergic rhinitis Obesity (BMI 30-39.9) COVID-19 Asthma Surgical History Hx of colonoscopy Family History Father Cancer Mother No problems noted. Son No problems noted. Daughter No problems noted. Brother No problems noted. Sister No problems noted. Other Diabetes HTN (hypertension) Social History Housing: Apartment Alcohol intake: current Alcohol intake frequency: does not drink Alcohol type: beer and hard liquor Patient Tobacco Use Status: Never used Tobacco e-Cigarette/Vaping Use: Never Used Second Hand Smoke Exposure: Yes service: No Current occupational status: disabled Cognitive needs: No Hearing needs: No Vision needs: Yes (glasses) Review of Systems Const Denies fatigue, Denies fever(s), Denies night sweats, Denies poor appetite, Reports weight gain and Denies weight loss Eyes Details: glasses Reports requires corrective lenses ENT Reports Normal hearing present, Denies dental pain, Denies dysphagia, Denies hearing loss, Denies mouth pain, Denies odynophagia, Denies throat swelling, Denies tongue swelling and Reports other (Dentition adequate) Card Reports no additional complaints Resp Reports no additional complaints GI Details: Denies abdominal pain, Denies melena, Reports bloating, Denies hematochezia, Denies constipation, Denies GI cramping, Denies dysphagia, Denies excessive flatus, Denies early satiety, Reports heartburn, Reports diarrhea, Denies nausea, Denies odynophagia, Denies vomiting and Denies hematemesis Skin/Breast Denies pruritus, Denies lesions, Denies rash and Denies jaundice Neuro Reports Normal hearing present and Denies Abnormal speech present Endo Denies fatigue Aller/Immun Denies throat swelling and Denies tongue swelling Physical Exam Vital Signs: Last Vital Signs Pulse 68 08/17/24 12:56 BP 117/69 08/17/24 12:56 BMI result Body Mass Index 35.0 Const General: cooperative, no acute distress, well developed and well groomed Nutritional Appearance: well nourished and obese centrally obese Orientation/consciousness: oriented to person, oriented to place and oriented to time Limitations: language barrier HEENT Head: Yes normocephalic and Yes atraumatic Eyes General: appearance normal, both eyes and all related structures Pupils: Equal, round and reactive pupils present Neck Neck: Yes normal visual inspection and Yes no lymphadenopathy Thyroid: Thyroid normal Resp Effort & Inspection: normal respiratory effort and able to speak in complete sentences Auscultation: clear to auscultation bilaterally Cardio Rate: regular rate Rhythm: regular rhythm Heart sounds: Normal, physiologic split S2 sound present Peripheral pulses: radial pulses present and posterior tibial pulses present GI Inspection: No distended, No Abdominal panniculus present and Yes obesity Palpation (GI): Soft to palpation, nontender, no guarding, not rigid and No hepatosplenomegaly present Percussion: Yes normal to percussion Auscultation: normal bowel sounds Rectal Exam - Male: Yes deferred Skin General skin exam: no rashes or lesions noted, turgor normal, skin not dry, no jaundice, No spider nevi and no striae Rashes: no rashes Nails: normal Neuro General: oriented to person, oriented to place and oriented to time Cranial nerves: Yes Equal, round and reactive pupils present and Yes Normal hearing present Speech: No Abnormal speech present Extrem General: Yes normal to inspection, No clubbing, No cyanosis and No edema Psych Appearance: grossly normal and well kempt Mental Status: mental status grossly normal Speech and movement: Normal speech and movement present Affect: normal affect Attitude: cooperative Thought process: Normal thought process present and not confabulating Thought content: Normal thought content present Insight: Limited insight present (Psych) Judgement: Limited judgement present (Psych) Assessment & Plan Assessment & Plan (1) Irritable bowel syndrome with both constipation and diarrhea: Code(s): K58.2 - Mixed irritable bowel syndrome Category: Medical (2) 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 He is having a lot of flatulence and some lower abd pain before and after his BM's - also diarrhea self tx with Pepto Bismol. Change from omeprazole to protonix bid to avoid diarrheal effect and add creon. ROV 6 weeks. 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
== END 2024-08-17 15:14 | disposition home or self-care (01) ==
PROVIDERS: PCP Internal Medicine; Visit Provider Nurse Practitioner
DX: K58.2 Mixed irritable bowel syndrome (principal); K22.70 Barrett's esophagus without dysplasia
CPT/HCPCS: 99213

== ENCOUNTER → 2024-08-17 12:39 | Outpatient (BNVA) | payer OTHER, SELFPAY | PROVIDERS: PCP Internal Medicine; Visit Provider Nurse Practitioner | DX: K21.9 Gastro-esophageal reflux disease without esophagitis (principal); K58.2 Mixed irritable bowel syndrome; K22.70 Barrett's esophagus without dysplasia | CPT/HCPCS: 99212 ==

== ENCOUNTER 2024-09-29 13:55 | Outpatient (AMB) | payer OTHER, SELFPAY ==
--- NOTE | 2024-09-29 13:57 | A.OFFVIS_ITS ---
Vital Signs 09/29/24 14:10 Height 5 ft 10 in Weight 242 lb 15.19 oz BMI 34.9 BP 140/82 H Blood Pressure Location Lt brachial Position Sitting Pulse 84 Intake Visit Reasons: 6 wks f/u SSBE, IBS, gas Intake Note: Patient in office today in follow up of IBS. CC: Patient c/o epigastric pain and abdominal LLQ pain. He states that he has been having a dry mouth and feeling anxious and is not sure if it is d/t the new medication. Patient states that he did not receive the Creon. 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: Comment: 2023 EGD= focal area of Barretts, repeat in 2025 with colonoscopy Code(s): K22.70 - Trivedi's esophagus without dysplasia Category: Medical (2) Irritable bowel syndrome with both constipation and diarrhea: Code(s): K58.2 - Mixed irritable bowel syndrome Category: Medical Medications: New pantoprazole (Protonix) 40 mg PO BID 30 days 60 tabs 6RF K22.70 - Trivedi's esophagus without dysplasia [id number] 36,000-114,000- 180,000 unit (Creon) administer with meals and/or snacks 2 caps PO BID 60 caps 6RF K58.2 - Mixed irritable bowel syndrome Discontinued omeprazole Discontinued Reason: Doctor's Order 40 mg PO BID 180 caps 2RF K22.70 - Trivedi's esophagus without dysplasia [place] # Yvan Prieto ve Has occasional breakthrough, but also occasionally forgets his second dose. He is having a lot of flatulence and some lower abd pain before and after his BM's - also diarrhea self tx with Pepto Bismol. Change from o2o to protonix bid to avoid diarrheal effect adn add creon. ROV 6 weeks. TODAYS VISIT [place] #Pepito Live He has had no change in his sx, however he does not know if he received the creon. We call the pharmacy and he did not get it as the insurance did not order it. He can confirm that he is taking pantoprazole and has stopped his o meprazole. With this is diarrhea has not been any better as I would not expect it to be necessarily except if it were caused by a class affect reaction to the omeprazole. ROV 8 weeks. [facility] [place] Medical History Pruritic rash Anemia Diarrhea Abdominal pain Dermatitis Impaired fasting glucose [id number] syndrome Varicose veins of left lower extremity with inflammation Colon cancer screening Shoulder pain, bilateral Bilateral ankle pain Pain of right heel Pre-op evaluation Annual physical exam Varicose veins of right lower extremity with inflammation Vitamin D deficiency Anxiety Allergic rhinitis Obesity (BMI 30-39.9) COVID-19 Asthma Surgical History Hx of colonoscopy Family History Father Cancer Mother No problems noted. Son No problems noted. Daughter No problems noted. Brother No problems noted. Sister No problems noted. Other Diabetes HTN (hypertension) Social History Housing: Apartment Alcohol intake: current Alcohol intake frequency: does not drink Alcohol type: beer and hard liquor Patient Tobacco Use Status: Never used Tobacco e-Cigarette/Vaping Use: Never Used Second Hand Smoke Exposure: Yes service: No Current occupational status: disabled Cognitive needs: No Hearing needs: No Vision needs: Yes (glasses) Review of Systems Const Denies fatigue, Denies fever(s), Denies night sweats, Denies poor appetite and Denies weight loss Eyes Details: glasses Reports requires corrective lenses ENT Reports Normal hearing present, Denies dental pain, Denies dysphagia, Denies hearing loss, Denies mouth pain, Denies odynophagia, Denies throat swelling, Denies tongue swelling and Reports other (Dentition adequate) Card Reports no additional complaints Resp Reports no additional complaints GI Details: Denies abdominal pain, Denies melena, Denies bloating, Denies hematochezia, Denies constipation, Denies GI cramping, Denies dysphagia, Denies excessive flatus, Denies early satiety, Reports heartburn, Denies diarrhea, Reports loose stools, Denies nausea, Denies odynophagia, Denies vomiting and Denies hematemesis Skin/Breast Denies pruritus, Denies lesions, Denies rash and Denies jaundice Neuro Reports Normal hearing present and Denies Abnormal speech present Endo Denies fatigue Aller/Immun Denies throat swelling and Denies tongue swelling Physical Exam Vital Signs: Last Vital Signs Pulse 84 09/29/24 14:10 BP 140/82 H 09/29/24 14:10 BMI result Body Mass Index 34.9 Const General: cooperative, no acute distress, well developed and well groomed Nutritional Appearance: well nourished and obese Orientation/consciousness: oriented to person, oriented to place and oriented to time Limitations: language barrier HEENT Head: Yes normocephalic and Yes atraumatic Eyes General: appearance normal, both eyes and all related structures Pupils: Equal, round and reactive pupils present Neck Neck: Yes normal visual inspection and Yes no lymphadenopathy Thyroid: Thyroid normal Resp Effort & Inspection: normal respiratory effort and able to speak in complete s entences Auscultation: clear to auscultation bilaterally Cardio Rate: regular rate Rhythm: regular rhythm Heart sounds: Normal, physiologic split S2 sound present Peripheral pulses: radial pulses present and posterior tibial pulses present GI Inspection: No distended, No Abdominal panniculus present and Yes obesity Palpation (GI): Soft to palpation, nontender, no guarding, not rigid and No hepatosplenomegaly present Percussion: Yes normal to percussion Auscultation: normal bowel sounds Rectal Exam - Male: Yes deferred Skin General skin exam: no rashes or lesions noted, turgor normal, skin not dry, no jaundice, No spider nevi and no striae Rashes: no rashes Nails: normal Neuro General: oriented to person, oriented to place and oriented to time Cranial nerves: Yes Equal, round and reactive pupils present and Yes Normal hearing present Speech: No Abnormal speech present Extrem General: Yes normal to inspection, No clubbing, No cyanosis and No edema Psych Appearance: grossly normal and well kempt Mental Status: mental status grossly normal Speech and movement: Normal speech and movement present Affect: normal affect Attitude: cooperative Thought process: Normal thought process present and not confabulating Thought content: Normal thought content present Insight: Limited insight present (Psych) Judgement: Limited judgement present (Psych) Assessment & Plan Assessment & Plan (1) 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: Comment: 2023 EGD= focal area of Barretts, repeat in 2025 with colonoscopy Code(s): K22.70 - Trivedi's esophagus without dysplasia Category: Medical (2) Irritable bowel syndrome with both constipation and diarrhea: Code(s): K58.2 - Mixed irritable bowel syndrome Category: Medical (3) GERD (gastroesophageal reflux disease): Code(s): K21.9 - Gastro-esophageal reflux disease without esophagitis Category: Medical Qualifiers: Esophagitis presence: without esophagitis Qualified Code(s): K21.9 - Gastro-esophageal reflux disease without esophagitis Plan [place] #Pepito Live He has had no change in his sx, however he does not know if he received the creon. We call the pharmacy and he did not get it as the insurance did not order it. He can confirm that he is taking pantoprazole and has stopped his omeprazole. With this is diarrhea has not been any better as I would not expect it to be necessarily except if it were caused by a class affect reaction to the omeprazole. ROV 8 weeks. 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
[2024-09-29 14:10] VITALS: BP 140/82; PULSE 84; BMI 34.9
== END 2024-09-29 14:45 | disposition home or self-care (01) ==
PROVIDERS: PCP Internal Medicine; Visit Provider Nurse Practitioner
DX: K22.70 Barrett's esophagus without dysplasia (principal); K58.2 Mixed irritable bowel syndrome; K21.9 Gastro-esophageal reflux disease without esophagitis
CPT/HCPCS: 99213

== ENCOUNTER → 2024-09-29 13:55 | Outpatient (BNVA) | payer OTHER, SELFPAY | PROVIDERS: PCP Internal Medicine; Visit Provider Nurse Practitioner | DX: K22.70 Barrett's esophagus without dysplasia (principal); K58.2 Mixed irritable bowel syndrome; K21.9 Gastro-esophageal reflux disease without esophagitis | CPT/HCPCS: 99212 ==

== ENCOUNTER 2024-12-10 14:21 | Outpatient (AMB) | payer OTHER, SELFPAY ==
[2024-12-10 14:29] VITALS: BP 124/82; PULSE 75; O2SAT 98; BMI 34.7
--- NOTE | 2024-12-10 14:29 | A.OFFPC_ITS ---
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 Accompanied by: Self / Same As Patient Allergies No Known Drug Allergies Allergy (Unknown, Verified 12/10/24 14:50) none latex Allergy (Verified 12/10/24 14:50) Rash Medication List - Last Reconciled 12/10/24 by Volodymyr Keller MD albuterol sulfate 90 mcg/actuation (Ventolin HFA) 2 puffs inhalation Q6H PRN 30 days citalopram 10 mg PO DAILY dicyclomine 20 mg PO QID fluticasone propionate 50 mcg/actuation 2 sprays intranasal DAILY PRN ipratropium-albuterol 0.5 mg-3 mg(2.5 mg base)/3 mL 3 mL inhalation Q6-8H PRN 30 days ysbzvn-[id number]-[id number] 36,000-114,000- 180,000 unit (Creon) 2 caps PO BID meloxicam 7.5 mg PO DAILY PRN 30 days mometasone 200 mcg/actuation (Asmanex HFA) 1 puff inhalation BID pantoprazole (Protonix) 40 mg PO BID 30 days trazodone 50 mg PO BEDTIME PRN 30 days triamcinolone acetonide 0.025% 1 appl topical TID PRN Tobacco use date assessed: 12/10/24 Dental Screening Dental Screen Date: 12/10/24 Did you have a dental visit in the last 12 months?: No Did you have a dental problem in the last 6 months where you did not have access to dental care?: No Was dental information given to patient?: Patient has dentist [facility] HPI Details Patient comes in today for his follow up visit States that he continues to experience frequent/recurrent bilateral shoulder pain and would like to know how his x-rays done a few months ago came out Adds that he has been experiencing on and off dizziness lately - notes that these tend to occur when he moves or gets up too quickly and often last for just a few minutes before gradually subsiding on their own He is also still experiencing recurrent bilateral ankle pain and right foot/heel pain - recalls seeing podiatry and getting injections into his right heel a few years ago, which helped somewhat He denies any headaches Denies any chest pains, no increased SOB No nausea/vomiting, no abdominal pain No change in bowel habits noted He has no follow up labs done recently [facility] Medical History (Updated 12/10/24 @ 15:28 by Volodymyr Keller MD) Impaired fasting glucose Anemia Shoulder pain, bilateral Pain of right heel Bilateral ankle pain Pruritic rash Diarrhea Abdominal pain Dermatitis 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 Son No problems noted. Daughter No problems noted. Brother No problems noted. Sister No problems noted. Other Diabetes HTN (hypertension) Social History Housing: Apartment Alcohol intake: current Alcohol intake frequency: does not drink Alcohol type: beer and hard liquor Patient Tobacco Use Status: Never used Tobacco e-Cigarette/Vaping Use: Never Used Second Hand Smoke Exposure: Yes service: No Current occupational status: disabled Cognitive needs: No Hearing needs: No Vision needs: Yes (glasses) Questionnaire PHQ-9 Over the last 2 weeks, how often have you been bothered by any of the following problems? 1. Little interest or pleasure in doing things: not at all 2. Feeling down, depressed, or hopeless: not at all 3. Trouble falling or staying asleep, or sleeping too much: several days 4. Feeling tired or having little energy: not at all 5. Poor appetite or overeating: not at all 6. Feeling bad about yourself - or that you are a failure or have let yourself or your family down: not at all 7. Trouble concentrating on things, such as reading the newspaper or watching television: not at all 8. Moving or speaking so slowly that other people could have noticed. Or the opposite - being so fidgety or restless that you have been moving around a lot more than usual: not at all 9. Thoughts that you would be better off or of hurting yourself in some way: not at all Total score: 1 Depression Screening Interpretation: Negative Depression Screening Done: Yes 01761 - PHQ-9 Billing: Yes Source: Developed by Drs. Matt Munoz, Halina Moscoso, Luis Mckeon and colleagues, with an educational danika from [employer]. Thrive Questionnaire Date Thrive assessed: 12/10/24 I am a: Patient What is your living situation today?: I have a steady place to live Within the past 12 months, did the food you bought not last and you didn't have the money to get more?: Never true Within the past 12 months, did you worry whether your food would run out before you got money to buy more?: Never true Do you have trouble paying for medicines?: No Do you have trouble getting transportation to medical appointments?: No Do you have trouble paying your heating and electricity bill?: No Do you have trouble taking care of your child, family member or friend?: No Do you have trouble with day-to-day activities such as bathing, preparing meals, shopping, managing finances, etc.?: No Are you currently unemployed and looking for a job?: Yes Are you interested in more education?: No Please select the resources that you would like help with: None Currently or been in a relationship where the following occur: No concerns reported THRIVE Score: 0 AUDIT C Alcohol Use Questionnaire (AUDIT-C) 1. How often do you have a drink containing alcohol?: Never 3. How often do you have six or more drinks on one occasion?: Never Total Score: 0 Score Reviewed/Action Taken: Yes DESHAUN-7 AMB Questionnaire DESHAUN-7 Date DESHAUN - 7 assessed: 12/10/24 Feeling nervous, anxious, or on edge: 1 = Several days Not being able to stop or control worryin = Not at all Worrying too much about different things: 0 = Not at all Trouble relaxin = Not at all Being so restless that it is hard to sit still: 0 = Not at all Becoming easily annoyed or irritable: 1 = Several days Feeling afraid as if something awful might happen: 0 = Not at all Total DESHAUN-7 score (0-4 normal; 5-9 mild; 10-14 moderate; 15-21 severe): 2 Source: Developed by Drs. Matt Munoz, Halina Moscoso, Luis Mckeon and colleagues, with an educational danika from [employer]. DESHAUN-7 Assessment Billing DESHAUN-7 Assessment Tool: DESHAUN-7 Assessment 89766 Review of Systems Const Denies chills, Denies fatigue, Denies fever(s) and Denies headache(s) ENT Denies dysphagia, Reports dizziness (on and off lately - see HPI), Denies otalgia, Denies headache(s), Denies neck pain, Denies odynophagia and Denies sore throat Card Denies chest pain, Denies irregular heart rhythm, Denies palpitations and Reports dyspnea on exertion (mild, at times) Resp Denies chest congestion, Denies cough and Reports dyspnea on exertion (mild, at times) GI Denies abdominal pain, Denies constipation, Denies dysphagia, Denies heartburn, Denies diarrhea, Denies nausea, Denies odynophagia and Denies vomiting Denies difficulty urinating, Denies dysuria and Denies urinary frequency Musc Denies back pain, Reports arthralgias (over both shoulders and both ankles) and Denies neck pain Skin/Breast Denies rash Neuro Reports dizziness (on and off lately - see HPI), Denies headache(s) and Denies paresthesias Endo Denies fatigue and Denies palpitations Physical exam (Primary Care) Vital Signs: Last Vital Signs Pulse 75 12/10/24 14:29 BP 124/82 12/10/24 14:29 Pulse Ox 98 12/10/24 14:29 Oxygen Delivery Method Room Air 12/10/24 14:29 BMI result Body Mass Index 34.7 Tobacco/Smoking Status: Tobacco use Status Tobacco use date assessed 12/10/24 12/10/24 14:36 Patient Tobacco Use Status Never used Tobacco 12/10/24 14:36 e-Cigarette/Vaping Use Never Used 12/10/24 14:36 PHQ-9: PHQ-9 Score PHQ-9: Total score 1 12/10/24 14:36 Depression Screening Interpretation: Negative Thrive Assessment: Date of Thrive Assessment Date Thrive assessed 12/10/24 12/10/24 14:36 Currently or been in a relationship where the following occur: No concerns reported Const General: no acute distress and alert HENMT Ears: TM's normal bilaterally and EAC's normal Throat: Yes posterior oropharynx normal and Yes tonsils normal (no TP congestion) Neck Neck: Yes supple and No lymphadenopathy Thyroid: Thyroid normal Resp Auscultation: clear to auscultation bilaterally, no crackles, no rales and no wheezes Cardio Rate: regular rate Rhythm: regular rhythm Heart sounds: no murmurs GI Palpation (GI): Soft to palpation and nontender Auscultation: normal bowel sounds General: Yes no CVA tenderness Back/Spine/Pelvis Back: no CVA tenderness Thoracic/Lumbar Spine: No lumbar spinal tenderness Skin Rashes: no rashes Extrem General: No clubbing, No cyanosis and Yes edema (1+ bipedal edema ) Right upper extremity: shoulder/upper arm Details: tenderness Location: of the A-C joint and normal ROM; no swelling Left upper extremity: shoulder/upper arm Details: tenderness Location: of the A- C joint and normal ROM; no swelling Right lower extremity: ankle Details: tenderness and foot Details: tenderness Location: of the calcaneus Left lower extremity: ankle Details: tenderness and foot Details: tenderness Location: of the calcaneus Coding Level of Care Code Est Pt Level 4 (03440) Diagnoses Bilateral shoulder pain, unspecified chronicity M25.511; M25.512 Chronicity: unspecified Bilateral ankle pain, unspecified chronicity M25.571; M25.572 Chronicity: unspecified Pain of right heel M79.671 Mild intermittent asthma without complication J45.20 Asthma severity: mild Asthma persistence: intermittent Asthma complication type: uncomplicated Allergic rhinitis, unspecified seasonality, unspecified trigger J30.9 Allergic rhinitis trigger: unspecified Allergic rhinitis seasonality: unspecified Impaired fasting glucose R73.01 Anemia, unspecified type D64.9 Anemia type: unspecified type Gastroesophageal reflux disease without esophagitis K21.9 Esophagitis presence: without esophagitis Irritable bowel syndrome with both constipation and diarrhea K58.2 Dizziness R42 Vitamin D deficiency E55.9 Varicose veins of bilateral lower extremities with pain I83.813 Insomnia, unspecified type G47.00 Insomnia type: unspecified Anxiety F41.9 Obesity (BMI 30-39.9) E66.9 Additional Codes DESHAUN-7 Assessment Billing - DESHAUN-7 Assessment Tool: DESHUAN-7 Assessment 83829 ([id number]) PHQ-9 - 14605 - PHQ-9 Billing: Yes ([id number]) Assessment & Plan Assessment & Plan (1) Shoulder pain, bilateral: Code(s): M25.511 - Pain in right shoulder; M25.512 - Pain in left shoulder Category: Medical Qualifiers: Chronicity: unspecified Qualified Code(s): M25.511 - Pain in right shoulder; M25.512 - Pain in left shoulder Plan: His shoulder x-rays done back in August 2024 revealed (+) mild OA changes in the right shoulder; left shoulder x-rays came out normal Have advised patient that his shoulder pain is likely due to tendinitis/bursitis Will refer patient to physical therapy for further evaluation and management; will consider referring to orthopedics only if PT does not help (2) Bilateral ankle pain: Code(s): M25.571 - Pain in right ankle and joints of right foot; M25.572 - Pain in left ankle and joints of left foot Category: Medical Qualifiers: Chronicity: unspecified Qualified Code(s): M25.571 - Pain in right ankle and joints of right foot; M25.572 - Pain in left ankle and joints of left foot Plan: This is a chronic issue with patient - he has been seen by Dr. Mishra in the past and has been diagnosed with bilateral heel spur syndrome and plantar fasciitis Will refer him back to podiatry (Dr. Pancho Anna) for further evaluation and management (3) Pain of right heel: Code(s): M79.671 - Pain in right foot Category: Medical Plan: Patient recalls receiving injections into his right heel in the past with (+) temporary relief of symptoms Will refer him again to podiatry for further management and consideration for repeat injection Tx (4) Asthma: Code(s): J45.909 - Unspecified asthma, uncomplicated Category: Medical Qualifiers: Asthma severity: mild Asthma persistence: intermittent Asthma complication type: uncomplicated Qualified Code(s): J45.20 - Mild intermittent asthma, uncomplicated Plan: Controlled Continue Asmanex HFA 200 mcg 1 inhalation BID and Albuterol HFA 2 inhalations Q 6 hours PRN OR his nebulizer PRN (5) Allergic rhinitis: Code(s): J30.9 - Allergic rhinitis, unspecified Category: Medical Qualifiers: Allergic rhinitis trigger: unspecified Allergic rhinitis seasonality: unspecified Qualified Code(s): J30.9 - Allergic rhinitis, unspecified Plan: Continue Fluticasone 50 mcg nasal spray QD PRN (6) Impaired fasting glucose: Code(s): R73.01 - Impaired fasting glucose Category: Medical Plan: HgbA1c was normal at 5.3% when last checked in June 2023; FBS was normal at 96 mg/dl on his most recent labs in July 2024 Reinforced low calorie diet /exercise as tolerated (7) Anemia: Code(s): D64.9 - Anemia, unspecified Category: Medical Qualifiers: Anemia type: unspecified type Qualified Code(s): D64.9 - Anemia, unspecified Plan: He was still mildly anemic on his most recent CBC done back in July 2024, with H/H at 12.5/38.9 Iron studies done came back normal; his B12 level was noted to be low when checked last year Continue Vitamin B12 1000 mcg QD Screening colonoscopy done a few years ago in December 2020 revealed a couple of polyps that were removed; bowel prep was poor but colonoscopy was otherwise mostly normal He had his repeat colonoscopy done last year on 05/05/2024 - (+) multiple polyps that came out as tubular adenoma on pathology, and diverticulosis He is recommended for repeat colonoscopy in 3 years Will continue to monitor his CBC regularly (8) GERD (gastroesophageal reflux disease): Code(s): K21.9 - Gastro-esophageal reflux disease without esophagitis Category: Medical Qualifiers: Esophagitis presence: without esophagitis Qualified Code(s): K21.9 - Gastro-esophageal reflux disease without esophagitis Plan: Dietary restrictions reinforced Continue Famotidine 40 mg Q HS (9) Irritable bowel syndrome with both constipation and diarrhea: Code(s): K58.2 - Mixed irritable bowel syndrome Category: Medical Plan: Continue Dicyclomine 20 mg QID PRN Follow up with GI as scheduled (10) Dizziness: Code(s): R42 - Dizziness and giddiness Category: Medical Plan: Discussed that his recent recurrent dizziness may be orthostatic but more likely bouts of vertigo As his symptoms typically last only for a few minutes at the most, have advised him that treating with Rx right now would not be practical as his symptoms would more often than not have already resolved by the time the medication(s) start to work Have advised him to try to avoid abrupt or rapid shifts or changes in position to hopefully minimize his symptoms but if they progress, can then consider referring him for a trial of canalith repositioning (11) Vitamin D deficiency: Code(s): E55.9 - Vitamin D deficiency, unspecified Category: Medical Plan: Continue Vitamin D3 2000 units QD (12) Varicose veins of bilateral lower extremities with pain: Code(s): I83.813 - Varicose veins of bilateral lower extremities with pain Category: Medical Plan: He is advised that his recurrent ankle and feet swelling are likely also related to his varicose veins and due to venous insufficiency He is encouraged to continue using compression stockings/socks and keep his legs and feet elevated as often as he can Follow up with vascular surgery as scheduled (13) Insomnia: Code(s): G47.00 - Insomnia, unspecified Category: Medical Qualifiers: Insomnia type: unspecified Qualified Code(s): G47.00 - Insomnia, unspecified Plan: Sleep hygiene reinforced Continue Trazodone 50 mg Q HS PRN (14) Anxiety: Code(s): F41.9 - Anxiety disorder, unspecified Category: Medical Plan: Continue Citalopram 10 mg QD and Lorazepam 0.5 mg 2 to 3 times a day as needed Patient is advised to call if his anxiety persists or gets worse despite Rx (15) Obesity (BMI 30-39.9): Code(s): E66.9 - Obesity, unspecified Category: Medical Plan: Reinforced diet/exercise as tolerated/lose weight Plan Follow up in 4 months Orders: Orders Comprehensive Trout. Panel Fast 4 Months E78.00 - Pure hypercholesterolemia, unspecified Lipid Panel 4 Months E78.00 - Pure hypercholesterolemia, unspecified TSH reflex Free T4 4 Months E78.00 - Pure hypercholesterolemia, unspecified UA CC w/rflx Micro + Cult 4 Months R30.0 - Dysuria Vitamin D 25-OH Total 4 Months E55.9 - Vitamin D deficiency, unspecified PT Evaluation and Treatment Today M25.511 - Pain in right shoulder, M25.512 - Pain in left shoulder Complete Blood Count Auto Diff 4 Months D64.9 - Anemia, unspecified Referrals Podiatry Referral M25.571 - Pain in right ankle and joints of right foot, M25.572 - Pain in left ankle and joints of left foot, M79.671 - Pain in right foot
== END 2024-12-10 14:59 | disposition home or self-care (01) ==
PROVIDERS: PCP Internal Medicine; Visit Provider Internal Medicine
DX: M25.511 Pain in right shoulder (principal); M25.512 Pain in left shoulder; M25.571 Pain in right ankle and joints of right foot; M25.572 Pain in left ankle and joints of left foot; M79.671 Pain in right foot; J45.20 Mild intermittent asthma, uncomplicated; J30.9 Allergic rhinitis, unspecified; R73.01 Impaired fasting glucose; D64.9 Anemia, unspecified; K21.9 Gastro-esophageal reflux disease without esophagitis; K58.2 Mixed irritable bowel syndrome; R42 Dizziness and giddiness

== ENCOUNTER → 2024-12-10 14:21 | Outpatient (BNVA) | payer OTHER, SELFPAY | PROVIDERS: PCP Internal Medicine; Visit Provider Internal Medicine | DX: M25.511 Pain in right shoulder (principal); M25.512 Pain in left shoulder; M25.571 Pain in right ankle and joints of right foot; M25.572 Pain in left ankle and joints of left foot; M79.671 Pain in right foot; J45.20 Mild intermittent asthma, uncomplicated; J30.9 Allergic rhinitis, unspecified; R73.01 Impaired fasting glucose; D64.9 Anemia, unspecified; K21.9 Gastro-esophageal reflux disease without esophagitis; K58.2 Mixed irritable bowel syndrome; R42 Dizziness and giddiness; E55.9 Vitamin D deficiency, unspecified; I83.813 Varicose veins of bilateral lower extremities with pain; G47.00 Insomnia, unspecified; F41.9 Anxiety disorder, unspecified; E66.9 Obesity, unspecified | CPT/HCPCS: 96127; 99212 ==

== ENCOUNTER 2025-01-28 14:09 | Outpatient (RCR) | payer OTHER, SELFPAY ==
--- NOTE | 2025-01-07 13:57 | MHC.PT.EP ---
[facility] [place] Office [place] Office [place] Office [address] [phone] F: [phone] F: [phone] F: [phone] F: [phone] Physical Therapy Plan of Care Date of Evaluation: 01/07/25 Date of Surgery: Diagnosis: pain in R shoulder pain in l shoulder shoulder pain, B. R shoulder XR + mild OA, L shoulder normal, suspect tendinitis/ bursitis Assessment: 64 y/o R hand dominant male referred to PT with B shoulder pain. S/s consistent with tendintiis resulting in pain and difficulty with lifting, showering, moving arms, and sleeping. Examination shows decreased shoulder ROM (R>L), decreased B shoulder strength, impaired postural awareness and pain. Recommend PT 2x/week for 5 weeks to address impairments, implement HEP, and optimize functional mobility. Frequency and Duration: The patient will be seen 2x/week for 5 weeks Short Term Goals: 3 weeks I with HEP Shelter Goals: 5 weeks I with HEP and self management of sx Pt will be able to reach overhead into cabinets with pain < 3/10 Pt will be able to carry grocery bags x 3 minutes with pain < 3/10 Treatment Plan: Modalities to reduce pain, spasms and effusion. Manual therapy to restore motion and function. Therapeutic exercise to improve strength and flexibility. Neuromuscular re-education for posture and balance. Therapeutic activities to return to functional activities of daily living. Electronically signed by: Amy Paulson PT Please sign and return to therapist. Thank you for your referral.
--- NOTE | 2025-01-28 14:59 | MHC.PT.DC ---
[facility] [place] Office [place] Office [place] Office [address]i [address] [phone] F: [phone] F: [phone] F: [phone] F: [phone] Physical Therapy Discharge Report Diagnosis: pain in R shoulder pain in l shoulder shoulder pain, B. R shoulder XR + mild OA, L shoulder normal, suspect tendinitis/ bursitis Date of Surgery: Date of Evaluation: 01/07/25 Date of Discharge: 01/28/25 Treatments to Date: 7 Cancellations to Date: 0 No Shows to Date: 0 Discharge Status: Achieved Goals Improved Function Independent with HEP Discharge Summary: He demonstrates improved shoulder ROM and is able to reach overhead with decreased pain. We reviewed HEP and he reports compliance with exercises. No further questions at this time and appropriate for d/c Electronically signed by: Amy Paulson PT Please sign and return to therapist. Thank you for your referral.
== END 2025-01-28 14:59 | disposition home or self-care (01) ==
LOC: HO.PT 14:09
PROVIDERS: PCP Internal Medicine; Visit Provider Internal Medicine
DX: M25.511 Pain in right shoulder (principal); M25.512 Pain in left shoulder
CPT/HCPCS: 97110; 97161; 97530

== ENCOUNTER 2025-03-18 12:16 | Outpatient (AMB) | payer OTHER, SELFPAY ==
--- OUTSIDE RECORDS SUMMARY | 2025-03-18 12:19 | XMS_ITS | Clinical Summary ---
Author Organization [address] [facility] Address [address] [place] [address] Phone Care Team Providers Care Slumber Room Attendant Name Role Phone Volodymyr Keller MD Primary Care Provider [phone] Allergies Active Allergy Reactions Criticality Noted Date Comments Latex Rash 03/01/2025 Medications citalopram (CeleXA) 10 mg tablet Take 1 tablet (10 mg total) by mouth 1 (one) time each day. 01/27/20 25 Active dicyclomine (BENTYL) 20 mg tablet Take 1 tablet (20 mg total) by mouth. 01/28/20 25 Active pantoprazole (PROTONIX) 40 mg EC tablet take 1 tablet orally 2 times a day for 30 days 02/09/20 25 Active traZODone (DESYREL) 50 mg tablet 02/25/20 25 Active triamcinolone (KENALOG) 0.025 % cream USE 1 APPL TOPICALLY 3 TIMES A DAY NEEDED FOR RASH 02/09/20 25 Active omeprazole (PriLOSEC) [address] capsule Take 1 capsule (40 mg total) by mouth 1 (one) time each day. 11/07/19 25 Active meloxicam (MOBIC) 7.5 mg tablet TAKE 1 TABLET (7.5 MG) ORALLY DAILY NEEDED FOR HEADACHE OR PAIN TAKE WITH FOOD 12/26/19 25 Active Creon 36,000-114,000 - 180,000 unit capsule,delaye d release(DR/EC) TAKE 2 CAPSULES ORALLY 2 TIMES A DAY ADMINISTER WITH MEALS AND/OR SNACKS 09/29/20 24 Active fluticasone propionate (FLONASE) 50 mcg/actuation nasal spray SPRAY 2 SPRAYS INTO EACH NOSTRIL EVERY DAY NEEDED FOR NASAL CONGESTION 07/30/20 24 Active albuterol HFA (PROAIR HFA ; PROVENTIL HFA ; VENTOLIN HFA) 90 mcg/actuation inhaler TAKE 2 PUFFS INHALED EVERY 6 HOURS NEEDED FOR SHORTNESS OF BREATH OR WHEEZING FOR 30 DAYS 12/28/19 25 Active Asmanex HFA 200 mcg/actuation HFA aerosol inhaler inhaler Inhale 1 puff by mouth 2 (two) times a day. 10/29/20 24 Active methylPREDNISo lone (MEDROL DOSPAK) 4 mg tablet Take 1 tablet (4 mg total) by mouth See administration instructions for 6 days. Use as directed by package instructions 21 tablet 03/01/20 25 025 Encounters Date Type Department Care Team Description 03/01/2025 1:45 PM EDT Consult Orthopedic Surgery [place] [address] [phone] Pancho Myles DPM Primary osteoarthritis of both feet (Primary Dx); Bilateral ankle pain; Metatarsalgia of both feet; Lipodermatosclerosis of both lower extremities; Plantar fascial fibromatosis from Last 3 Months Social History Tobacco Use Types Packs/Day Years Used Date Smoking Tobacco: Never Assessed Sex and Gender Information Value Date Recorded Sex Assigned at Not on file Legal Sex Male 10:31 AM EST Gender Identity Not on file Sexual Orientation Not on file Last Filed Vital Signs Vital Sign Reading Time Taken Comments Blood Pressure - - Pulse - - Temperature - - Respiratory Rate - - Oxygen Saturation - - Inhaled Oxygen Concentration - - Weight 110 kg (242 lb) 03/01/2025 4:41 PM EDT Height 177.8 cm (5' 10 ) 03/01/2025 4:41 PM EDT Body Mass Index 34.72 03/01/2025 4:41 PM EDT Plan of Treatment Upcoming Encounters Date Type Department Care Team (Late st Contact Info) Description 04/05/2025 1:30 PM EDT Office Visit Orthopedic Surgery [facility] [address] [phone] Pancho Myles DPM [address] [address] Health Maintenance Due Date Last Done Comments DTaP,Tdap,and Td Vaccines (1 - Tdap) 1981 Pneumococcal Vaccine: 50+ Years (1 of 1 - PCV) 01/31/2012 Zoster Vaccines (1 of 2) 01/31/2012 COVID-19 Vaccine (4 - 2023-2 5 season) 2024 01/01/2022, 04/17/2021, 03/27/2021 Cholesterol Screening (Lipid Panel) 12/27/2024 Colorectal Cancer Screening: Colonoscopy 12/27/2024 Depression Screening 12/27/2024 HIV Screening 12/27/2024 Hepatitis C Screening 12/27/2024 Medicare Annual Wellness Visit 12/27/2024 Social Influencers of Health Screening 12/27/2024 Influenza Vaccine (Season Ended) 2025 RSV Immunization Adult Patients (1 - 1-dose 75+ series) 2037 HIB Vaccines Aged Out No longer eligi ble based on patient's age to complete this topic HPV Vaccines Aged Out No longer eligi ble based on patient's age to complete this topic Hepatitis A Vaccines Aged Out No long er eligible based on patient's age to complete this topic Hepatitis B Vaccines Aged Out No long er eligible based on patient's age to complete this topic IPV Vaccines Aged Out No longer eligi ble based on patient's age to complete this topic MMR Vaccines Aged Out No longer eligi ble based on patient's age to complete this topic Meningococcal ACWY Vaccine Aged Out N o longer eligible based on patient's age to complete this topic Meningococcal B Vaccine Aged Out No l onger eligible based on patient's age to complete this topic Pneumococcal Vaccine: Pediatrics (0 to 5 Years) and At-Risk Patients (6 to 64 Years) Aged Out No longer eligible b ased on patient's age to complete this topic RSV Immunization Patients Under 20 months Aged Out No longer eligible b ased on patient's age to complete this topic Varicella Vaccines Aged Out No longer eligible based on patient's age to complete this topic Insurance [facility] MEDIC[facility] Member Subscriber Plan / Payer (Ef fective 2023-Present) Name:Demarcus Reinoso Relation to Subscriber:Self Name:Demarcus Reinoso Payer ID:[id number] Group ID:[id number] Type:Not on file Address: [place] [address] [address] [id number] Care Teams Slumber Room Attendant Relationship Specialty Start Date End Date Volodymyr Keller MD [address] [place] [address] Dr [address] VANESSA Hector PCP - General Internal Medicine 12/27/24
--- NOTE | 2025-03-18 12:20 | MHC.OFFVIS ---
Vital Signs 03/18/25 12:28 Height 5 ft 10 in Weight 233 lb 11.04 oz BMI 33.5 BP 133/78 Blood Pressure Location Lt brachial Position Sitting Pulse 64 Intake Visit Reasons: Follow up GERD Intake Note: Demarcus presents in the office as a follow up for GERD. CC: HE states that he is not sure of the names of his medications - states that he is not having any concerns today. 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: Comment: 2023 EGD= focal area of Barretts, repeat in 2025 with colonoscopy Code(s): K22.70 - Trivedi's esophagus without dysplasia Category: Medical (2) Irritable bowel syndrome with both constipation and diarrhea: Code(s): K58.2 - Mixed irritable bowel syndrome Category: Medical (3) GERD (gastroesophageal reflux disease): Code(s): K21.9 - Gastro-esophageal reflux disease without esophagitis Category: Medical Qualifiers: Esophagitis presence: without esophagitis Qualified Code(s): K21.9 - Gastro-esophageal reflux disease without esophagitis Plan [place] #Pepito Live He has had no change in his sx, however he does not know if he received the creon. We call the pharmacy and he did not get it as the insurance did not order it. He can confirm that he is taking pantoprazole and has stopped his omeprazole. With this is diarrhea has not been any better as I would not expect it to be necessarily except if it were caused by a class affect reaction to the omeprazole. ROV 8 weeks. Medications: Discontinued sodium,potassium,mag sulfates 17.5-3.13-1.6 gram (Suprep Bowel Prep Kit) Discontinued Reason: Doctor's Order 480 mL orally; 354 mL 0RF TODAY'S VISIT [place] #[id number] Darryl He never took or received the Creon. He does not know the names of his medicines but I confirmed this by showing him a picture. It seems his diarrhea has stabilized and he is continuing on pantoprazole 40 mg once a day along with dicyclomine 4 times a day. With this he is satisfied with his GI regimen. 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 Son No problems noted. Daughter No problems noted. Brother No problems noted. Sister No problems noted. Other Diabetes HTN (hypertension) Social History Housing: Apartment Alcohol intake: current Alcohol intake frequency: does not drink Alcohol type: beer and hard liquor Patient Tobacco Use Status: Never used Tobacco e-Cigarette/Vaping Use: Never Used Second Hand Smoke Exposure: Yes service: No Current occupational status: disabled Cognitive needs: No Hearing needs: No Vision needs: Yes (glasses) Review of Systems Const Denies fatigue, Denies fever(s), Denies night sweats, Denies poor appetite and Denies weight loss Eyes Details: glasses Reports requires corrective lenses ENT Reports Normal hearing present, Denies dental pain, Denies dysphagia, Denies hearing loss, Denies mouth pain, Denies odynophagia, Denies throat swelling, Denies tongue swelling and Reports other (Dentition adequate) Card Reports no additional complaints Resp Reports no additional complaints GI Details: Denies abdominal pain, Denies melena, Denies bloating, Denies hematochezia, Denies constipation, Reports GI cramping, Denies dysphagia, Denies excessive flatus, Denies early satiety, Reports heartburn, Denies diarrhea, Reports loose stools, Denies nausea, Denies odynophagia, Denies vomiting and Denies hematemesis Skin/Breast Denies pruritus, Denies lesions, Denies rash and Denies jaundice Neuro Reports Normal hearing present and Denies Abnormal speech present Endo Denies fatigue Aller/Immun Denies throat swelling and Denies tongue swelling Physical Exam Const General: cooperative, no acute distress, well developed and well groomed Nutritional Appearance: well nourished and obese Orientation/consciousness: oriented to person, oriented to place and oriented to time Limitations: language barrier HEENT Head: Yes normocephalic and Yes atraumatic Eyes General: appearance normal, both eyes and all related structures Pupils: Equal, round and reactive pupils present Neck Neck: Yes normal visual inspection and Yes no lymphadenopathy Thyroid: Thyroid normal Resp Effort & Inspection: normal respiratory effort and able to speak in complete sentences Auscultation: clear to auscultation bilaterally Cardio Rate: regular rate Rhythm: regular rhythm Heart sounds: Normal, physiologic split S2 sound present Peripheral pulses: radial pulses present and posterior tibial pulses present GI Inspection: No distended, No Abdominal panniculus present and Yes obesity Palpation (GI): Soft to palpation, nontender, no guarding, not rigid and No hepatosplenomegaly present Percussion: Yes normal to percussion Auscultation: normal bowel sounds Rectal Exam - Male: Yes deferred Skin General skin exam: no rashes or lesions noted, turgor normal, skin not dry, no jaundice, No spider nevi and no striae Rashes: no rashes Nails: normal Neuro General: oriented to person, oriented to place and oriented to time Cranial nerves: Yes Equal, round and reactive pupils present and Yes Normal hearing present Speech: No Abnormal speech present Extrem General: Yes normal to inspection, No clubbing, No cyanosis and No edema Psych Appearance: grossly normal and well kempt Mental Status: mental status grossly normal Speech and movement: Normal speech and movement present Affect: normal affect Attitude: cooperative Thought process: Normal thought process present and not confabulating Thought content: Normal thought content present Insight: Fair insight present (Psych) and Limited insight present (Psych) Judgement: Fair judgement present (Psych) and Limited judgement present (Psych) Assessment & Plan Assessment & Plan (1) 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: Comment: 2023 EGD= focal area of Barretts, repeat in 2025 with colonoscopy Code(s): K22.70 - Trivedi's esophagus without dysplasia Category: Medical (2) Irritable bowel syndrome with both constipation and diarrhea: Code(s): K58.2 - Mixed irritable bowel syndrome Category: Medical (3) GERD (gastroesophageal reflux disease): Code(s): K21.9 - Gastro-esophageal reflux disease without esophagitis Category: Medical Qualifiers: Esophagitis presence: without esophagitis Qualified Code(s): K21.9 - Gastro-esophageal reflux disease without esophagitis Plan [place] #[id number] Darryl He never took or received the Creon. He does not know the names of his medicines but I confirmed this by showing him a picture. It seems his diarrhea has stabilized and he is continuing on pantoprazole 40 mg once a day along with dicyclomine 4 times a day. With this he is satisfied with his GI regimen. 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
[2025-03-18 12:28] VITALS: BP 133/78; PULSE 64; BMI 33.5
== END 2025-03-18 12:47 | disposition home or self-care (01) ==
LOC: HO.HGI 12:17
PROVIDERS: PCP Internal Medicine; Visit Provider Nurse Practitioner
DX: K22.70 Barrett's esophagus without dysplasia (principal); K58.2 Mixed irritable bowel syndrome; K21.9 Gastro-esophageal reflux disease without esophagitis
CPT/HCPCS: 99213

== ENCOUNTER → 2025-03-18 12:16 | Outpatient (BNVA) | payer OTHER, SELFPAY | PROVIDERS: PCP Internal Medicine; Visit Provider Nurse Practitioner | DX: K21.9 Gastro-esophageal reflux disease without esophagitis (principal); K22.70 Barrett's esophagus without dysplasia; K58.2 Mixed irritable bowel syndrome | CPT/HCPCS: 99212 ==

== ENCOUNTER 2025-04-29 14:28 | Outpatient (AMB) | payer OTHER, SELFPAY ==
[2025-04-29 14:34] VITALS: BP 124/72; PULSE 72; O2SAT 98; BMI 34.0
--- NOTE | 2025-04-29 14:34 | A.OFFPC_ITS ---
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: No Accompanied by: Self / Same As Patient Allergies latex Allergy (Verified 04/29/25 15:02) Rash omeprazole Adverse Reaction (Severe, Verified 04/29/25 15:02) Diarrhea Medication List - Last Reconciled 04/29/25 by Volodymyr Keller MD albuterol sulfate 90 mcg/actuation (Ventolin HFA) 2 puffs inhalation Q6H PRN 30 days citalopram 10 mg PO DAILY dicyclomine 20 mg PO QID fluticasone propionate 50 mcg/actuation 2 sprays intranasal DAILY PRN ipratropium-albuterol 0.5 mg-3 mg(2.5 mg base)/3 mL 3 mL inhalation Q6-8H PRN 30 days meloxicam 7.5 mg PO DAILY PRN 30 days mometasone 200 mcg/actuation (Asmanex HFA) 1 puff inhalation BID pantoprazole (Protonix) 40 mg PO DAILY 90 days trazodone 50 mg PO BEDTIME PRN 30 days triamcinolone acetonide 0.025% 1 appl topical TID PRN Tobacco use date assessed: 04/29/25 Dental Screening Dental Screen Date: 04/29/25 Did you have a dental visit in the last 12 months?: No Did you have a dental problem in the last 6 months where you did not have access to dental care?: No Was dental information given to patient?: No HPI [facility] HPI Details Patient comes in today for his follow-up visit States that he has been experiencing recurrent flare ups of his asthma over the past 3 to 4 days, with frequent cough and congestion and on and off chest tightness Patient reports coughing up scanty whitish to clear phlegm at times Relates also (+) mild sore throat but he denies any fever He denies any headaches or dizziness Denies any chest pains No nausea/vomiting, no abdominal pain No change in bowel habits noted He was again not able to get his follow-up done prior to his visit today - states that he will try to get these done [facility] Medical History Impaired fasting glucose Anemia Shoulder pain, bilateral Pain of right heel Bilateral ankle pain Pruritic rash Diarrhea Abdominal pain Dermatitis 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 Son No problems noted. Daughter No problems noted. Brother No problems noted. Sister No problems noted. Other Diabetes HTN (hypertension) Social History Housing: Apartment Alcohol intake: current Alcohol intake frequency: does not drink Alcohol type: beer and hard liquor Patient Tobacco Use Status: Never used Tobacco e-Cigarette/Vaping Use: Never Used Second Hand Smoke Exposure: Yes service: No Current occupational status: disabled Current occupational exposures/hazards: No Cognitive needs: No Hearing needs: No Vision needs: Yes (glasses) Questionnaire PHQ-9 Over the last 2 weeks, how often have you been bothered by any of the following problems? 1. Little interest or pleasure in doing things: not at all 2. Feeling down, depressed, or hopeless: not at all 3. Trouble falling or staying asleep, or sleeping too much: several days 4. Feeling tired or having little energy: not at all 5. Poor appetite or overeating: not at all 6. Feeling bad about yourself - or that you are a failure or have let yourself or your family down: not at all 7. Trouble concentrating on things, such as reading the newspaper or watching television: not at all 8. Moving or speaking so slowly that other people could have noticed. Or the opposite - being so fidgety or restless that you have been moving around a lot more than usual: not at all 9. Thoughts that you would be better off or of hurting yourself in some way: not at all Total score: 1 Depression Screening Interpretation: Negative Depression Screening Done: Yes 20784 - PHQ-9 Billing: Yes Source: Developed by Drs. Matt Munoz, Halina Moscoso, Luis Mckeon and colleagues, with an educational danika from [employer]. Thrive Questionnaire Date Thrive assessed: 04/29/25 I am a: Patient What is your living situation today?: I have a steady place to live Within the past 12 months, did the food you bought not last and you didn't have the money to get more?: Never true Within the past 12 months, did you worry whether your food would run out before you got money to buy more?: Never true Do you have trouble paying for medicines?: No Do you have trouble getting transportation to medical appointments?: No Do you have trouble paying your heating and electricity bill?: No Do you have trouble taking care of your child, family member or friend?: No Do you have trouble with day-to-day activities such as bathing, preparing meals, shopping, managing finances, etc.?: No Are you currently unemployed and looking for a job?: Yes Are you interested in more education?: No Please select the resources that you would like help with: None Currently or been in a relationship where the following occur: No concerns reported THRIVE Score: 0 AUDIT C Alcohol Use Questionnaire (AUDIT-C) 1. How often do you have a drink containing alcohol?: Never 3. How often do you have six or more drinks on one occasion?: Never Total Score: 0 Score Reviewed/Action Taken: Yes DESHAUN-7 AMB Questionnaire DESHAUN-7 Date DESHAUN - 7 assessed: 04/29/25 Feeling nervous, anxious, or on edge: 1 = Several days Not being able to stop or control worryin = Not at all Worrying too much about different things: 0 = Not at all Trouble relaxin = Not at all Being so restless that it is hard to sit still: 0 = Not at all Becoming easily annoyed or irritable: 1 = Several days Feeling afraid as if something awful might happen: 0 = Not at all Total DESHAUN-7 score (0-4 normal; 5-9 mild; 10-14 moderate; 15-21 severe): 2 Source: Developed by Fer Hajiet B.W. Danis, Luis Mckeon and colleagues, with an educational danika from [employer]. DESHAUN-7 Assessment Billing DESHAUN-7 Assessment Tool: DESHAUN-7 Assessment 17827 Review of Systems Const Denies chills, Reports fatigue, Denies fever(s) and Denies headache(s) ENT Denies dysphagia, Denies dizziness, Denies otalgia, Denies headache(s), Denies neck pain, Denies odynophagia and Denies sore throat Card Denies chest pain, Denies irregular heart rhythm, Denies palpitations and Reports dyspnea on exertion (mild, at times) Resp Reports chest congestion (chest feels tight at times), Reports cough, Reports dyspnea on exertion (mild, at times) and Reports wheezing (at times lately) GI Denies abdominal pain, Denies constipation, Denies dysphagia, Denies heartburn, Denies diarrhea, Denies nausea, Denies odynophagia and Denies vomiting Denies difficulty urinating, Denies dysuria and Denies urinary frequency Musc Denies back pain, Reports arthralgias (over both shoulders and both ankles) and Denies neck pain Skin/Breast Denies rash Neuro Denies dizziness, Denies headache(s) and Denies paresthesias Endo Reports fatigue and Denies palpitations Aller/Immun Reports wheezing (at times lately) Physical exam (Primary Care) Vital Signs: Last Vital Signs Pulse 72 04/29/25 14:34 BP 124/72 04/29/25 14:34 Pulse Ox 98 04/29/25 14:34 Oxygen Delivery Method Room Air 04/29/25 14:34 BMI result Body Mass Index 34.0 Tobacco/Smoking Status: Tobacco use Status Tobacco use date assessed 04/29/25 04/29/25 14:40 Patient Tobacco Use Status Never used Tobacco 04/29/25 14:40 e-Cigarette/Vaping Use Never Used 04/29/25 14:40 PHQ-9: PHQ-9 Score PHQ-9: Total score 1 04/29/25 15:03 Depression Screening Interpretation: Negative Thrive Assessment: Date of Thrive Assessment Date Thrive assessed 04/29/25 04/29/25 14:40 Currently or been in a relationship where the following occur: No concerns reported Const General: no acute distress and alert HENMT Ears: TM's normal bilaterally and EAC's normal Throat: Yes posterior oropharynx normal and Yes tonsils normal (no TP congestion) Neck Neck: Yes supple and No lymphadenopathy Thyroid: Thyroid normal Resp Auscultation: no crackles, no rales, rhonchi (scattered) throughout, wheezes (faint, occasional) expiratory wheezes and diminished lung sounds bilateral Cardio Rate: regular rate Rhythm: regular rhythm Heart sounds: no murmurs GI Palpation (GI): Soft to palpation and nontender Auscultation: normal bowel sounds General: Yes no CVA tenderness Back/Spine/Pelvis Back: no CVA tenderness Thoracic/Lumbar Spine: No lumbar spinal tenderness Skin Rashes: no rashes Extrem General: No clubbing, No cyanosis and Yes edema (1+ bipedal edema ) Right upper extremity: shoulder/upper arm Details: tenderness Location: of the A-C joint and normal ROM; no swelling Left upper extremity: shoulder/upper arm Details: tenderness Location: of the A- C joint and normal ROM; no swelling Coding Level of Care Code Est Pt Level 4 (57563) Diagnoses Moderate persistent asthma with exacerbation J45.41 Asthma severity: moderate Asthma persistence: persistent Bilateral shoulder pain, unspecified chronicity M25.511; M25.512 Chronicity: unspecified Bilateral ankle pain, unspecified chronicity M25.571; M25.572 Chronicity: unspecified Allergic rhinitis, unspecified seasonality, unspecified trigger J30.9 Allergic rhinitis trigger: unspecified Allergic rhinitis seasonality: unspecified Impaired fasting glucose R73.01 Anemia, unspecified type D64.9 Anemia type: unspecified type Gastroesophageal reflux disease without esophagitis K21.9 Esophagitis presence: without esophagitis Irritable bowel syndrome with both constipation and diarrhea K58.2 Vitamin D deficiency E55.9 Varicose veins of bilateral lower extremities with pain I83.813 Insomnia, unspecified type G47.00 Insomnia type: unspecified Anxiety F41.9 Obesity (BMI 30-39.9) E66.9 Additional Codes DESHAUN-7 Assessment Billing - DESHAUN-7 Assessment Tool: DESHAUN-7 Assessment 06060 ([id number]) PHQ-9 - 24543 - PHQ-9 Billing: Yes ([id number]) Assessment & Plan Assessment & Plan (1) Asthma exacerbation: Code(s): J45.901 - Unspecified asthma with (acute) exacerbation Category: Medical Qualifiers: Asthma severity: moderate Asthma persistence: persistent Qualified Code(s): J45.41 - Moderate persistent asthma with (acute) exacerbation Plan: Continue Albuterol HFA 1 to 2 inhalations QID PRN, Asmanex 200 mcg 1 inhalation BID and Duoneb via her nebulizer QID PRN Will start patient as well on oral Prednisone 20 mg QD x 3 days Will also start her empirically on Azithromycin QD x 5 days (2) Shoulder pain, bilateral: Code(s): M25.511 - Pain in right shoulder; M25.512 - Pain in left shoulder Category: Medical Qualifiers: Chronicity: unspecified Qualified Code(s): M25.511 - Pain in right shoulder; M25.512 - Pain in left shoulder Plan: Shoulder x-rays done back in August 2024 revealed (+) mild OA changes in the right shoulder; left shoulder x-rays came out normal Patient was referred to physical therapy at his last appointment, which patient states helped somewhat Will consider referring to orthopedics if his shoulder symptoms persist or get worse (3) Bilateral ankle pain: Code(s): M25.571 - Pain in right ankle and joints of right foot; M25.572 - Pain in left ankle and joints of left foot Category: Medical Qualifiers: Chronicity: unspecified Qualified Code(s): M25.571 - Pain in right ankle and joints of right foot; M25.572 - Pain in left ankle and joints of left foot Plan: This is a chronic issue with patient - he has been seen by Dr. Mishra in the past and has been diagnosed with bilateral heel spur syndrome and plantar fasciitis He has since been referred to and is now following up with Dr. Pancho Anna for continuing management of his foot issues (4) Allergic rhinitis: Code(s): J30.9 - Allergic rhinitis, unspecified Category: Medical Qualifiers: Allergic rhinitis trigger: unspecified Allergic rhinitis seasonality: unspecified Qualified Code(s): J30.9 - Allergic rhinitis, unspecified Plan: Continue Fluticasone 50 mcg nasal spray QD PRN (5) Impaired fasting glucose: Code(s): R73.01 - Impaired fasting glucose Category: Medical Plan: HgbA1c was normal at 5.3% when last checked in June 2023; FBS was normal at 96 mg/dl on his most recent labs in July 2024 Reinforced low calorie diet /exercise as tolerated (6) Anemia: Code(s): D64.9 - Anemia, unspecified Category: Medical Qualifiers: Anemia type: unspecified type Qualified Code(s): D64.9 - Anemia, unspecified Plan: He was still mildly anemic on his most recent CBC done back in July 2024, with H/H at 12.5/38.9 Iron studies done came back normal; his B12 level was noted to be low when checked last year Continue Vitamin B12 1000 mcg QD Screening colonoscopy done a few years ago in December 2020 revealed a couple of polyps that were removed; bowel prep was poor but colonoscopy was otherwise mostly normal He had his repeat colonoscopy done last year on 05/05/2024 - (+) multiple polyps that came out as tubular adenoma on pathology, and diverticulosis He is recommended for repeat colonoscopy in 3 years Will continue to monitor his CBC regularly (7) GERD (gastroesophageal reflux disease): Code(s): K21.9 - Gastro-esophageal reflux disease without esophagitis Category: Medical Qualifiers: Esophagitis presence: without esophagitis Qualified Code(s): K21.9 - Gastro-esophageal reflux disease without esophagitis Plan: Dietary restrictions reinforced Continue Famotidine 40 mg Q HS (8) Irritable bowel syndrome with both constipation and diarrhea: Code(s): K58.2 - Mixed irritable bowel syndrome Category: Medical Plan: Continue Dicyclomine 20 mg QID PRN Follow up with GI as scheduled (9) Vitamin D deficiency: Code(s): E55.9 - Vitamin D deficiency, unspecified Category: Medical Plan: Continue Vitamin D3 2000 units QD (10) Varicose veins of bilateral lower extremities with pain: Code(s): I83.813 - Varicose veins of bilateral lower extremities with pain Category: Medical Plan: He is advised that his recurrent ankle and feet swelling are likely also related to his varicose veins and due to venous insufficiency He is encouraged to continue using compression stockings/socks and keep his legs and feet elevated as often as he can Follow up with vascular surgery as scheduled (11) Insomnia: Code(s): G47.00 - Insomnia, unspecified Category: Medical Qualifiers: Insomnia type: unspecified Qualified Code(s): G47.00 - Insomnia, unspecified Plan: Sleep hygiene reinforced Continue Trazodone 50 mg Q HS PRN (12) Anxiety: Code(s): F41.9 - Anxiety disorder, unspecified Category: Medical Plan: Continue Citalopram 10 mg QD and Lorazepam 0.5 mg 2 to 3 times a day as needed Patient is advised to call if his anxiety persists or gets worse despite Rx (13) Obesity (BMI 30-39.9): Code(s): E66.9 - Obesity, unspecified Category: Medical Plan: Reinforced diet/exercise as tolerated/lose weight Plan Follow up in 4 months Orders: Orders Comprehensive Madeline. Panel Fast 4 Months E78.00 - Pure hypercholesterolemia, unspecified Lipid Panel 4 Months E78.00 - Pure hypercholesterolemia, unspecified UA CC w/rflx Micro + Cult 4 Months R30.0 - Dysuria Vitamin D 25-OH Total 4 Months E55.9 - Vitamin D deficiency, unspecified Hemoglobin A1c 4 Months R73.01 - Impaired fasting glucose Complete Blood Count Auto Diff 4 Months D64.9 - Anemia, unspecified TSH reflex Free T4 4 Months E78.00 - Pure hypercholesterolemia, unspecified Medications: New azithromycin take 500 mg today (day 1), then 250 mg for 4 days (days 2-5) PO 6 tabs 0RF prednisone 20 mg PO DAILY 3 tabs 0RF 3 days
--- OUTSIDE RECORDS SUMMARY | 2025-04-29 14:49 | XMS_ITS | Clinical Summary ---
Author Organization [facility] Address [address] [place] [address] Phone Care Team Providers Care Resource Protection Specialist Name Role Phone Volodymyr Keller MD Primary Care Provider Allergies Active Allergy Reactions Criticality Noted Date Comments Latex Rash 03/01/2025 Medications citalopram (CeleXA) 10 mg tablet Take 1 tablet (10 mg total) by mouth 1 (one) time each day. 5 Active dicyclomine (BENTYL) 20 mg tablet Take 1 tablet (20 mg total) by mouth. 5 Active pantoprazole (PROTONIX) 40 mg EC tablet take 1 tablet orally 2 times a day for 30 days 5 Active traZODone (DESYREL) 50 mg tablet 5 Active omeprazole (PriLOSEC) [address] capsule Take 1 capsule (40 mg total) by mouth 1 (one) time each day. 5 Active meloxicam (MOBIC) 7.5 mg tablet TAKE 1 TABLET (7.5 MG) ORALLY DAILY NEEDED FOR HEADACHE OR PAIN TAKE WITH FOOD 5 Active Creon 36,000-114,000 - 180,000 unit capsule,delaye d release(DR/EC) TAKE 2 CAPSULES ORALLY 2 TIMES A DAY ADMINISTER WITH MEALS AND/OR SNACKS 4 Active fluticasone propionate (FLONASE) 50 mcg/actuation nasal spray SPRAY 2 SPRAYS INTO EACH NOSTRIL EVERY DAY NEEDED FOR NASAL CONGESTION 4 Active albuterol HFA (PROAIR HFA ; PROVENTIL HFA ; VENTOLIN HFA) 90 mcg/actuation inhaler TAKE 2 PUFFS INHALED EVERY 6 HOURS NEEDED FOR SHORTNESS OF BREATH OR WHEEZING FOR 30 DAYS 5 Active Asmanex HFA 200 mcg/actuation HFA aerosol inhaler inhaler Inhale 1 puff by mouth 2 (two) times a day. 4 Active triamcinolone (KENALOG) 0.025 % cream Apply topically 2 (two) times a day if needed for irritation or rash. 30 g 5 05/05/20 25 Active triamcinolone (KENALOG) 0.025 % cream USE 1 APPL TOPICALLY 3 TIMES A DAY NEEDED FOR RASH 5 04/05/20 25 Discontinu ed(Reorder ) triamcinolone (KENALOG) 0.025 % cream Apply topically 2 (two) times a day if needed for irritation or rash. 30 g 5 04/05/20 25 Discontinu ed(Reorder ) Encounters Date Type Department Care Team Description 04/05/2025 1:30 PM EDT Office Visit Orthopedic Surgery [address] [phone] Pancho Myles DPM Follow-up exam (Primary Dx); Primary osteoarthritis of both feet; Metatarsalgia of both feet; Plantar fascial fibromatosis; Lipodermatosclerosis of both lower extremities 03/01/2025 1:45 PM EDT Consult Orthopedic Surgery [address] [phone] Pancho Myles DPM Primary osteoarthritis of both [...] Care Team (Late st Contact Info) Description 05/03/2025 2:00 PM EDT Evaluation [facility] [place] [address] [facility] [address] [place] [id number] Abigail Damon, PT 05/19/2025 1:30 PM EDT Office Visit Orthopedic Surgery - [place] [address] [place] [phone] Pancho Myles, DPM [address] [facility] [address] [place] [address] Health Maintenance Due Date Last Done Comments [...] on patient's age to complete this topic Procedures Procedure Name Priority Date/Time Associated Diagnosis Comments XR FOOT 3+ VIEWS BILAT Routine 04/05/2025 1:40 PM EDT Follow-up exam from Last 3 Months Results * XR Foot 3+ Views bilat (04/05/2025 1:40 PM EDT) Anatomical Region Laterality Modality Lower Extremities, Foot Bilateral Computed Radiography Narrative 04/05/2025 5:39 PM EDT Right foot 3 views No fracture. No radiopaque foreign joint spaces Arthritis mild Hammertoe 2 through 5 Foot position Pes planus with Talus navicular uncovering decreased calcaneal inclination anterior displaced symes line talus navicular joint to calcaneal cuboid joint Left foot 3 views No fracture. No radiopaque foreign joint spaces Arthritis mild Hammertoe 2 through 5 Foot position Pes planus with Talus navicular uncovering decreased calcaneal inclination anterior displaced symes line talus navicular joint to calcaneal cuboid joint Pancho Myles DPM IMG XR PROCEDURES Final R esult from Last 3 Months Insurance [employer] MEDICARE Member Subscriber Plan / Payer (Ef fective 2023-Present) Name:VINICIUS REINOSO Relation to Subscriber:Self Name:Vinicius Reinoso Payer ID:[id number] Group ID:[id number] Type:Not on file Address: [address] [place] [id number] Care Teams Resource Protection Specialist Relationship Specialty Start Date End Date Volodymyr Keller MD [address] [place] [address] [address] [place], [place] PCP - General Internal Medicine 12/27/24
== END 2025-04-29 15:09 | disposition home or self-care (01) ==
PROVIDERS: PCP Internal Medicine; Visit Provider Internal Medicine
DX: J45.41 Moderate persistent asthma with (acute) exacerbation (principal); M25.511 Pain in right shoulder; M25.512 Pain in left shoulder; M25.571 Pain in right ankle and joints of right foot; M25.572 Pain in left ankle and joints of left foot; J30.9 Allergic rhinitis, unspecified; R73.01 Impaired fasting glucose; D64.9 Anemia, unspecified; K21.9 Gastro-esophageal reflux disease without esophagitis; K58.2 Mixed irritable bowel syndrome; E55.9 Vitamin D deficiency, unspecified; I83.813 Varicose veins of bilateral lower extremities with pain

== ENCOUNTER → 2025-04-29 14:28 | Outpatient (BNVA) | payer OTHER, SELFPAY | PROVIDERS: PCP Internal Medicine; Visit Provider Internal Medicine | DX: J45.41 Moderate persistent asthma with (acute) exacerbation (principal); M25.511 Pain in right shoulder; M25.512 Pain in left shoulder; M25.571 Pain in right ankle and joints of right foot; M25.572 Pain in left ankle and joints of left foot; J30.9 Allergic rhinitis, unspecified; R73.01 Impaired fasting glucose; D64.9 Anemia, unspecified; K21.9 Gastro-esophageal reflux disease without esophagitis; K58.2 Mixed irritable bowel syndrome; E55.9 Vitamin D deficiency, unspecified; I83.813 Varicose veins of bilateral lower extremities with pain; G47.00 Insomnia, unspecified; F41.9 Anxiety disorder, unspecified; E66.9 Obesity, unspecified; E78.00 Pure hypercholesterolemia, unspecified; R30.0 Dysuria; Z68.34 Body mass index [BMI] 34.0-34.9, adult | CPT/HCPCS: 96127; 99212 ==

== ENCOUNTER 2025-09-07 12:05 | Outpatient (REF) | payer OTHER, SELFPAY ==
[2025-09-07 12:20] LABS: MANUAL DIFF FLAG NO
[2025-09-07 12:45] LABS: Hematocrit 41.3 % (42.0-52.0); Hemoglobin 13.3 g/dl (14.0-18.0); Imm Gran Abs Auto 0.03 X10*3/uL (0.00-0.03); Imm Gran Pct Auto 0.4 % (0.0-0.4); Lymphocytes Absolute Auto 2.8 X10*3/uL (1.2-4.9); Mean Corpuscular HGB Conc 32.2 g/dl (31.0-36.0); Mean Corpuscular Hemoglobin 28.0 pg (27.0-33.0); Mean Corpuscular Volume 86.9 fL (80.0-98.0); NRBC Abs Auto 0.000 X10*3/uL (0.0-0.012); NRBC Pct Auto 0.0 /100WBC (0.0-0.2); Platelet Count 188 X10*3/uL (160-400); Red Blood Count 4.75 X10*6/uL (4.60-5.80); White Blood Count 8.1 X10*3/uL (4.8-10.8)
[2025-09-07 13:00] LABS: Total Hemoglobin (HGBA1C) 3457.1567 umol/L
[2025-09-07 13:01] LABS: Appearance Urine Clear; Glucose Urine UA Negative (Negative); PH 5.5 (5.0-9.0); Specific Gravity - Urine 1.025 (1.005-1.025); UMIC TRIGGER UACC YES
[2025-09-07 13:26] LABS: Alanine Aminotransferase 24 U/L (0-40); Albumin Level 4.5 g/dL (3.5-5.0); Alkaline Phosphatase 68 U/L (39-117); Anion Gap 10 (12-20); Aspartate Amino Transferase 34 U/L (5-37); Blood Urea Nitrogen 18 mg/dL (9-16); Calcium 9.1 mg/dL (8.4-10.2); Carbon Dioxide 29 mmol/L (22-29); Chloride 108 mmol/L (96-108); Cholesterol 178 mg/dL (<200); Estimated Glomerular Filt Rate > 60; HDL Cholesterol 45 mg/dL (>40); Potassium 4.0 mmol/L (3.3-5.1); Sodium 143 mmol/L (135-145); Total Protein 7.1 g/dL (6.5-8.0); Triglycerides 141 mg/dL (<150)
--- OUTSIDE RECORDS SUMMARY | 2025-09-07 14:49 | XMS_ITS | Clinical Summary ---
Author Organization 175 [facility] Address 175 [place] [address] Phone Care Team Providers Care Product Development Ecologist Name Role Phone Volodymyr Keller MD Primary [...] 2 (two) times a day. 4 Active ketoconazole (NIZORAL) 2 % cream Apply topically 1 (one) time each day. 30 g 2 5 Active dexAMETHasone (DECADRON) 4 mg/mL injection 1 mL (4 mg total) by Other route every 12 (twelve) hours. For iontophoresis with physical therapy 30 mL 2 5 Active diclofenac (Voltaren Arthritis Pain) 1 % topical gel Apply 4 g topically 2 (two) times a day. 240 g 1 5 025 Encounters Date Type Department Care Team Description 08/01/2025 Telephone [facility] [address] [address] Abigail Damon, PT 07/18/2025 2:00 PM EDT Treatment [facility] [address] [address] Abigail Damon, PT Primary osteoarthritis of both feet (Primary Dx); Metatarsalgia of both feet 07/14/2025 1:30 PM EDT Treatment [facility] [address] [address] Volodymyr Morrison, REFRIGERATION ENGINEER Primary osteoarthritis of both feet (Primary Dx) 07/14/2025 Telephone Orthopedic [facility] [address] [address] Pancho Myles, DPM 07/11/2025 2:00 PM EDT Treatment [facility] [address] [phone] Volodymyr Morrison, REFRIGERATION ENGINEER Primary osteoarthritis of both feet (Primary Dx) 07/07/2025 2:30 PM EDT Office Visit Orthopedic [facility] [address] [address] Pancho Myles, DPM Primary osteoarthritis of both feet (Primary Dx); Metatarsalgia of both feet; Lipodermatosclerosi s of both lower extremities; Dermatophytosis of nail; Plantar fascial fibromatosis 06/28/2025 1:00 PM EDT Treatment [facility] [address] [address] Abigail Damon, PT Primary osteoarthritis of both feet (Primary Dx); Metatarsalgia of both feet; Plantar fascial fibromatosis 06/22/2025 1:45 PM EDT Treatment [address] [address] Abigail Damon, PT Primary osteoarthritis of both feet (Primary Dx); Metatarsalgia of both feet; Plantar fascial fibromatosis 06/22/2025 Plan of Care Documentation [address] [address] 06/20/2025 2:00 PM EDT Treatment [address] [address] Abigail Damon, PT Primary osteoarthritis of both feet (Primary Dx); Metatarsalgia of both feet; Plantar fascial fibromatosis 06/15/2025 2:00 PM EDT Treatment [address] [address] Abigail Damon, PT Primary osteoarthritis of both feet (Primary Dx); Metatarsalgia of both feet; Plantar fascial fibromatosis 06/13/2025 1:00 PM EDT Treatment [address] [address] Robert Montoya PTA Primary osteoarthritis of both feet (Primary Dx); Metatarsalgia of both feet; Plantar fascial fibromatosis 06/08/2025 2:00 PM EDT Treatment [address] [address] Abigail Damon, YAJAIRA Primary osteoarthritis of both feet (Primary Dx); Metatarsalgia of both feet from Last 3 Months Social History Tobacco [...] Upcoming Encounters Date Type Department Care Team ([facility] st Contact Info) Description 10/06/2025 3:15 PM EST Office Visit Orthopedic Surgery - [place] [address] [address] Pancho Myles, DPM [address] [phone] Health Maintenance Due Date Last Done Comments Colorectal Cancer Screening: Colonoscopy 1962 DTaP,Tdap,and Td Vaccines (1 - Tdap) 1981 Pneumococcal Vaccine: 50+ Years (1 of 1 - PCV) 01/31/2012 Zoster Vaccines (1 of 2) 01/31/2012 Depression Screening 11/03/2024 Cholesterol Screening (Lipid Panel) 12/27/2024 HIV Screening 12/27/2024 Hepatitis C Screening 12/27/2024 Medicare Annual Wellness Visit 12/27/2024 Social Influencers of Health Screening 12/27/2024 COVID-19 Vaccine (4 - 2024-2 6 season) 2025 01/01/2022, 04/17/2021, 03/27/2021 Influenza Vaccine (#1) 2025 RSV Immunization Adult Patients (1 - [...] patient's age to complete this topic [place] [id number] [facility] MEDICARE Member Subscriber Plan / Payer (Ef fective 2023-Present) Name:VINICIUS REINOSO Relation to Subscriber:Self Name:Vinicius Reinoso Payer ID:[id number] Group ID:[id number] Type:Not on file Address: [place] [address] [place] [id number] Care Teams Product Development Ecologist Relationship Specialty Start Date End Date Volodymyr Keller MD [address] [place] [address] Dr [address] [place] PCP - General Internal Medicine 12/27/24
== END 2025-09-07 12:06 | disposition home or self-care (01) ==
LOC: HO.LAB 12:05
PROVIDERS: PCP Internal Medicine; Visit Provider Internal Medicine
DX: R73.01 Impaired fasting glucose (principal); E78.00 Pure hypercholesterolemia, unspecified; E55.9 Vitamin D deficiency, unspecified; D64.9 Anemia, unspecified; R30.0 Dysuria
CPT/HCPCS: 36415; 80053; 80061; 81001; 81003; 82306; 83036; 84443; 85025

== ENCOUNTER 2025-09-09 15:12 | Outpatient (AMB) | payer OTHER, SELFPAY ==
[2025-09-09 15:19] VITALS: BP 110/80; PULSE 69; O2SAT 96; BMI 34.1
--- NOTE | 2025-09-09 15:19 | MHC.PC.OV ---
Vital Signs 09/09/25 15:19 Height 5 ft 10 in Weight 238 lb BMI 34.1 BP 110/80 Blood Pressure Location Lt brachial Position Sitting Pulse 69 Pulse Source Pulse Oximeter Pulse Oximetry (%) 96 Oxygen Delivery Method Room Air Intake Visit Reasons: asthma, ifg Intake Note: Patient states he has been suffering from alot of lower back pain frequent headaches, and fatigue. 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 Accompanied by: Self / Same As Patient Allergies latex Allergy (Verified 09/09/25 16:15) Rash omeprazole Adverse Reaction (Severe, Verified 09/09/25 16:15) Diarrhea Medication List - Last Reconciled 09/09/25 by Volodymyr Keller MD albuterol sulfate 90 mcg/actuation (Ventolin HFA) 2 puffs inhalation Q6H PRN 30 days citalopram 10 mg PO DAILY dicyclomine 20 mg PO QID fluticasone propionate 50 mcg/actuation 2 sprays intranasal DAILY PRN ipratropium-albuterol 0.5 mg-3 mg(2.5 mg base)/3 mL 3 mL inhalation Q6-8H PRN 30 days meloxicam 7.5 mg PO DAILY PRN 30 days mometasone 200 mcg/actuation (Asmanex HFA) 1 puff inhalation BID pantoprazole 40 mg PO BID trazodone 50 mg PO BEDTIME PRN 30 days triamcinolone acetonide 0.025% 1 appl topical TID PRN Tobacco use date assessed: 09/09/25 Dental Screening Dental Screen Date: 09/09/25 Did you have a dental visit in the last 12 months?: No Did you have a dental problem in the last 6 months where you did not have access to dental care?: No Was dental information given to patient?: No HPI asthma, ifg HPI Details Patient comes in today for his follow up visit States that he has been experiencing recurrent headaches lately - states that he has headaches every few days; denies any associated photophobia or nausea Also relates (+) on and off bilateral shoulder pains and low back pain He denies any dizziness Denies any chest pains, no increased SOB No nausea/vomiting but relates (+) on and off abdominal pain No change in bowel habits noted He had his follow up labs done a couple of days ago - to discuss his results [facility] Medical History Impaired fasting glucose Anemia Shoulder pain, bilateral Pain of right heel Bilateral ankle pain Pruritic rash Diarrhea Abdominal pain Dermatitis [id number] syndrome Varicose veins of left lower extremity with inflammation Colon cancer screening Pre-op evaluation Annual physical exam Varicose veins of right lower extremity with inflammation Vitamin D deficiency Anxiety Allergic rhinitis Obesity (BMI 30-39.9) COVID-19 Asthma Surgical History Hx of colonoscopy Family History Father Cancer Mother No problems noted. Son No problems noted. Daughter No problems noted. Brother No problems noted. Sister No problems noted. Other Diabetes HTN (hypertension) Social History Housing: Apartment Alcohol intake: current Alcohol intake frequency: does not drink Alcohol type: beer and hard liquor Patient Tobacco Use Status: Never used Tobacco e-Cigarette/Vaping Use: Never Used Second Hand Smoke Exposure: Yes service: No Current occupational status: disabled Current occupational exposures/hazards: No Cognitive needs: No Hearing needs: No Vision needs: Yes (glasses) Questionnaire PHQ-9 Over the last 2 weeks, how often have you been bothered by any of the following problems? 1. Little interest or pleasure in doing things: not at all 2. Feeling down, depressed, or hopeless: not at all 3. Trouble falling or staying asleep, or sleeping too much: several days 4. Feeling tired or having little energy: not at all 5. Poor appetite or overeating: not at all 6. Feeling bad about yourself - or that you are a failure or have let yourself or your family down: not at all 7. Trouble concentrating on things, such as reading the newspaper or watching television: not at all 8. Moving or speaking so slowly that other people could have noticed. Or the opposite - being so fidgety or restless that you have been moving around a lot more than usual: not at all 9. Thoughts that you would be better off or of hurting yourself in some way: not at all Total score: 1 Depression Screening Interpretation: Negative Depression Screening Done: Yes 61684 - PHQ-9 Billing: Yes Source: Developed by Drs. Matt Munoz, Halina Moscoso, Luis Mckeon and colleagues, with an educational danika from [employer]. Thrive Questionnaire Date Thrive assessed: 09/09/25 I am a: Patient What is your living situation today?: I have a steady place to live Within the past 12 months, did the food you bought not last and you didn't have the money to get more?: Never true Within the past 12 months, did you worry whether your food would run out before you got money to buy more?: Never true Do you have trouble paying for medicines?: No Do you have trouble getting transportation to medical appointments?: No Do you have trouble paying your heating and electricity bill?: No Do you have trouble taking care of your child, family member or friend?: No Do you have trouble with day-to-day activities such as bathing, preparing meals, shopping, managing finances, etc.?: No Are you currently unemployed and looking for a job?: Yes Are you interested in more education?: No Please select the resources that you would like help with: None Currently or been in a relationship where the following occur: No concerns reported THRIVE Score: 0 AUDIT C Alcohol Use Questionnaire (AUDIT-C) 1. How often do you have a drink containing alcohol?: Never 3. How often do you have six or more drinks on one occasion?: Never Total Score: 0 Score Reviewed/Action Taken: Yes DESHAUN-7 AMB Questionnaire DESHAUN-7 Date DESHAUN - 7 assessed: 09/09/25 Feeling nervous, anxious, or on edge: 1 = Several days Not being able to stop or control worryin = Not at all Worrying too much about different things: 0 = Not at all Trouble relaxin = Not at all Being so restless that it is hard to sit still: 0 = Not at all Becoming easily annoyed or irritable: 1 = Several days Feeling afraid as if something awful might happen: 0 = Not at all Total DESHAUN-7 score (0-4 normal; 5-9 mild; 10-14 moderate; 15-21 severe): 2 Source: Developed by Halina Haji Kurt Kroenke and colleagues, with an educational danika from [employer]. DESHAUN-7 Assessment Billing DESHAUN-7 Assessment Tool: DESHAUN-7 Assessment 83319 Review of Systems Const Denies chills, Reports fatigue, Denies fever(s) and Reports headache(s) (on and off) ENT Denies dysphagia, Denies dizziness, Denies otalgia, Reports headache(s) (on and off), Denies neck pain, Denies odynophagia and Denies sore throat Card Denies chest pain, Denies irregular heart rhythm, Denies palpitations and Denies dyspnea Resp Denies chest congestion, Denies cough and Denies dyspnea GI Denies abdominal pain, Denies constipation, Denies dysphagia, Denies heartburn, Denies diarrhea, Denies nausea, Denies odynophagia and Denies vomiting Denies difficulty urinating, Denies dysuria, Denies nocturia and Denies urinary frequency Musc Reports back pain (on and off over the lower back), Reports arthralgias (involving multiple joints, including both shoulders and both ankles) and Denies neck pain Skin/Breast Denies rash Neuro Denies dizziness, Reports headache(s) (on and off) and Denies paresthesias Endo Reports fatigue and Denies palpitations Physical exam (Primary Care) Vital Signs: Last Vital Signs Pulse 69 09/09/25 15:19 BP 110/80 09/09/25 15:19 Pulse Ox 96 09/09/25 15:19 Oxygen Delivery Method Room Air 09/09/25 15:19 BMI result Body Mass Index 34.1 Tobacco/Smoking Status: Tobacco use Status Tobacco use date assessed 09/09/25 09/09/25 15:22 Patient Tobacco Use Status Never used Tobacco 09/09/25 15:22 e-Cigarette/Vaping Use Never Used 09/09/25 15:22 PHQ-9: PHQ-9 Score PHQ-9: Total score 1 09/09/25 16:20 Depression Screening Interpretation: Negative Thrive Assessment: Date of Thrive Assessment Date Thrive assessed 09/09/25 09/09/25 15:22 Currently or been in a relationship where the following occur: No concerns reported Const General: no acute distress and alert HENMT Ears: TM's normal bilaterally and EAC's normal Throat: Yes posterior oropharynx normal and Yes tonsils normal (no TP congestion) Neck Neck: Yes supple and No lymphadenopathy Thyroid: Thyroid normal Resp Auscultation: clear to auscultation bilaterally, no crackles, no rales and no wheezes Cardio Rate: regular rate Rhythm: regular rhythm Heart sounds: no murmurs GI Palpation (GI): Soft to palpation and nontender Auscultation: normal bowel sounds General: Yes no CVA tenderness Back/Spine/Pelvis Back: no CVA tenderness Thoracic/Lumbar Spine: lumbar spinal tenderness Skin Rashes: no rashes Extrem General: No clubbing, No cyanosis and Yes edema (1+ bipedal edema ) Right upper extremity: shoulder/upper arm Details: tenderness Location: of the A-C joint and normal ROM; no swelling Left upper extremity: shoulder/upper arm Details: tenderness Location: of the A-C joint and normal ROM; no swelling Results Reviewed Results Reviewed: Laboratory Tests 09/07/25 09/07/25 12:12 12:16 WBC 8.1 Hgb 13.3 L Hct 41.3 L Plt Count 188 Sodium 143 Potassium 4.0 Creatinine 1.12 Estimated GFR > 60 Fasting Glucose 90 Hemoglobin A1c % 5.7 Calcium 9.1 AST 34 ALT 24 Triglycerides 141 Cholesterol 178 LDL Cholesterol, Calc 105 H HDL Cholesterol 45 25-OH Vitamin D Total 37.5 TSH 0.94 Ur Specific [place] 1.025 Urine Protein Negative Urine Glucose (UA) Negative Urine Blood Negative Urine Nitrite Negative Ur Leukocyte Esterase Trace H Coding Level of Care Code Est Pt Level 4 (60935) Diagnoses Mild intermittent asthma without complication J45.20 Asthma severity: mild Asthma persistence: intermittent Asthma complication type: uncomplicated Bilateral shoulder pain, unspecified chronicity M25.511; M25.512 Chronicity: unspecified Bilateral ankle pain, unspecified chronicity M25.571; M25.572 Chronicity: unspecified Allergic rhinitis, unspecified seasonality, unspecified trigger J30.9 Allergic rhinitis seasonality: unspecified Allergic rhinitis trigger: unspecified Impaired fasting glucose R73.01 Anemia, unspecified type D64.9 Anemia type: unspecified type Gastroesophageal reflux disease without esophagitis K21.9 Esophagitis presence: without esophagitis Irritable bowel syndrome with both constipation and diarrhea K58.2 Vitamin D deficiency E55.9 Varicose veins of bilateral lower extremities with pain I83.813 Insomnia, unspecified type G47.00 Insomnia type: unspecified Anxiety F41.9 Obesity (BMI 30-39.9) E66.9 Additional Codes DESHAUN-7 Assessment Billing - DESHAUN-7 Assessment Tool: DESHAUN-7 Assessment 58611 ([id number]) PHQ-9 - 26804 - PHQ-9 Billing: Yes ([id number]) Assessment & Plan Assessment & Plan (1) Asthma: Code(s): J45.909 - Unspecified asthma, uncomplicated Category: Medical Qualifiers: Asthma severity: mild Asthma persistence: intermittent Asthma complication type: uncomplicated Qualified Code(s): J45.20 - Mild intermittent asthma, uncomplicated Plan: Controlled Continue Asmanex 200 mcg 1 inhalation BID and Albuterol HFA 1 to 2 inhalations QID PRN He also has Duoneb that he uses via her nebulizer QID PRN (2) Shoulder pain, bilateral: Code(s): M25.511 - Pain in right shoulder; M25.512 - Pain in left shoulder Category: Medical Qualifiers: Chronicity: unspecified Qualified Code(s): M25.511 - Pain in right shoulder; M25.512 - Pain in left shoulder Plan: Shoulder x-rays done back in August 2024 revealed (+) mild OA changes in the right shoulder; left shoulder x-rays came out normal Patient was then referred to physical therapy, which patient states helped somewhat at the time Will consider referring him to orthopedics if his shoulder symptoms persist or get worse (3) Bilateral ankle pain: Code(s): M25.571 - Pain in right ankle and joints of right foot; M25.572 - Pain in left ankle and joints of left foot Category: Medical Qualifiers: Chronicity: unspecified Qualified Code(s): M25.571 - Pain in right ankle and joints of right foot; M25.572 - Pain in left ankle and joints of left foot Plan: This is a chronic issue with patient - he has been seen by Dr. Mishra in the past and has been diagnosed with bilateral heel spur syndrome and plantar fasciitis He has since been referred to and is now following up with Dr. Pancho Anna for continuing management of his foot issues (4) Allergic rhinitis: Code(s): J30.9 - Allergic rhinitis, unspecified Category: Medical Qualifiers: Allergic rhinitis seasonality: unspecified Allergic rhinitis trigger: unspecified Qualified Code(s): J30.9 - Allergic rhinitis, unspecified Plan: Continue Fluticasone 50 mcg nasal spray QD PRN (5) Impaired fasting glucose: Code(s): R73.01 - Impaired fasting glucose Category: Medical Plan: HgbA1c was still normal at 5.7% on his labs done a couple of days ago; it was at 5.3% when previously checked in June 2023 FBS was normal at 90 mg/dl on his most recent labs done a couple of days ago Reinforced low calorie diet /exercise as tolerated (6) Anemia: Code(s): D64.9 - Anemia, unspecified Category: Medical Qualifiers: Anemia type: unspecified type Qualified Code(s): D64.9 - Anemia, unspecified Plan: He is still mildly anemic on his labs, with H/H at 13./41.3 Iron studies done came back normal; his B12 level was noted to be low when checked last year Continue Vitamin B12 1000 mcg QD Screening colonoscopy done a few years ago in December 2020 revealed a couple of polyps that were removed; bowel prep was poor but colonoscopy was otherwise mostly normal He had his repeat colonoscopy done last year on 05/05/2024 - (+) multiple polyps that came out as tubular adenoma on pathology, and diverticulosis He is recommended for repeat colonoscopy in 3 years Will continue to monitor his CBC regularly (7) GERD (gastroesophageal reflux disease): Code(s): K21.9 - Gastro-esophageal reflux disease without esophagitis Category: Medical Qualifiers: Esophagitis presence: without esophagitis Qualified Code(s): K21.9 - Gastro-esophageal reflux disease without esophagitis Plan: Dietary restrictions reinforced Continue Famotidine 40 mg Q HS (8) Irritable bowel syndrome with both constipation and diarrhea: Code(s): K58.2 - Mixed irritable bowel syndrome Category: Medical Plan: Continue Dicyclomine 20 mg QID PRN Follow up with GI as scheduled (9) Vitamin D deficiency: Code(s): E55.9 - Vitamin D deficiency, unspecified Category: Medical Plan: Continue Vitamin D3 2000 units QD (10) Varicose veins of bilateral lower extremities with pain: Code(s): I83.813 - Varicose veins of bilateral lower extremities with pain Category: Medical Plan: He is advised that his recurrent ankle and feet swelling are likely also related to his varicose veins and due to venous insufficiency He is encouraged to continue using compression stockings/socks and keep his legs and feet elevated as often as he can Follow up with vascular surgery as scheduled (11) Insomnia: Code(s): G47.00 - Insomnia, unspecified Category: Medical Qualifiers: Insomnia type: unspecified Qualified Code(s): G47.00 - Insomnia, unspecified Plan: Sleep hygiene reinforced Continue Trazodone 50 mg Q HS PRN (12) Anxiety: Code(s): F41.9 - Anxiety disorder, unspecified Category: Medical Plan: Continue Citalopram 10 mg QD and Lorazepam 0.5 mg 2 to 3 times a day as needed Patient is advised to call if his anxiety persists or gets worse despite Rx (13) Obesity (BMI 30-39.9): Code(s): E66.9 - Obesity, unspecified Category: Medical Plan: Reinforced diet/exercise as tolerated/lose weight Plan Follow up in 4 months Orders: Orders Comprehensive [place]. Panel Fast 4 Months E78.00 - Pure hypercholesterolemia, unspecified UA CC w/rflx Micro + Cult 4 Months R30.0 - Dysuria Vitamin B12 and Folate 4 Months E53.8 - Deficiency of other specified B group vitamins Complete Blood Count Auto Diff 4 Months D64.9 - Anemia, unspecified Lipid Panel 4 Months E78.00 - Pure hypercholesterolemia, unspecified Hemoglobin A1c 4 Months E11.9 - Type 2 diabetes mellitus without complications TSH reflex Free T4 4 Months E78.00 - Pure hypercholesterolemia, unspecified Vitamin D 25-OH Total 4 Months E55.9 - Vitamin D deficiency, unspecified
--- OUTSIDE RECORDS SUMMARY | 2025-09-09 16:22 | XMS_ITS | Clinical Summary ---
Author Organization 175 [facility] Address [address] [place] [address] Phone Care Team Providers Care Blunger Loader Name Role Phone Volodymyr Keller MD Primary Care Provider [phone] Allergies Active Allergy Reactions Criticality Noted Date [...] Type Department Care Team Description 08/01/2025 Telephone [facility] [address] [phone] Abigail Damon, PT 07/18/2025 2:00 PM EDT Treatment [facility] [address] [phone] Abgiail Damon, PT Primary osteoarthritis of both feet (Primary Dx); Metatarsalgia of both feet 07/14/2025 1:30 PM EDT Treatment [facility] [address] [address] Volodymyr Morrison, DIE FILER Primary osteoarthritis of both feet (Primary Dx) 07/14/2025 Telephone Orthopedic [facility] [address] [address] Pancho Myles, DPM 07/11/2025 2:00 PM EDT Treatment [facility] [address] [phone] Volodymyr Morrison, DIE FILER Primary osteoarthritis of both feet (Primary Dx) 07/07/2025 2:30 PM EDT Office Visit Orthopedic [facility] [address] [address] Pancho Myles, DPM Primary osteoarthritis of both feet (Primary Dx); Metatarsalgia of both feet; Lipodermatosclerosi s of both lower extremities; Dermatophytosis of nail; Plantar fascial fibromatosis 06/28/2025 1:00 PM EDT Treatment [facility] [address] [address] Abigail Damon, PT Primary osteoarthritis of both feet (Primary Dx); Metatarsalgia of both feet; Plantar fascial fibromatosis 06/22/2025 1:45 PM EDT Treatment [address] [address] Abigail Damon, PT Primary osteoarthritis of both feet (Primary Dx); Metatarsalgia of both feet; Plantar fascial fibromatosis 06/22/2025 Plan of Care Documentation [address] [phone] 06/20/2025 2:00 PM EDT Treatment [address] [address] Abigail Damon, PT Primary osteoarthritis of both feet (Primary Dx); Metatarsalgia of both feet; Plantar fascial fibromatosis 06/15/2025 2:00 PM EDT Treatment [address] [address] Abigail Damon, PT Primary osteoarthritis of both feet (Primary Dx); Metatarsalgia of both feet; Plantar fascial fibromatosis 06/13/2025 1:00 PM EDT Treatment [address] [address] Robert Montoya PTA Primary osteoarthritis of both feet (Primary Dx); Metatarsalgia of both feet; Plantar fascial fibromatosis from Last 3 Months [...] Care Team (Late st Contact Info) Description 10/06/2025 3:15 PM EST Office Visit Orthopedic Surgery - [place] [address] [address] Pancho Myles, DPBerto [address] [address] Health Maintenance Due Date Last Done Comments [...] patient's age to complete this topic Insurance [place] HECTOR [id number] [employer] MEDICARE Member Subscriber Plan / Payer (Ef fective 2023-Present) Name:VINICIUS REINOSO Relation to Subscriber:Self Name:Vinicius Reinoso Payer ID:[id number] Group ID:[id number] Type:Not on file Address: [place] [address] [place] [id number] Care Teams Blunger Loader Relationship Specialty Start Date End Date Volodymyr Keller MD [address] [place] [address] [address] VANESSA Hector PCP - General Internal Medicine 12/27/24
== END 2025-09-09 16:27 | disposition home or self-care (01) ==
LOC: HO.HMCH 15:13
PROVIDERS: PCP Internal Medicine; Visit Provider Internal Medicine
DX: J45.20 Mild intermittent asthma, uncomplicated (principal); M25.511 Pain in right shoulder; E66.9 Obesity, unspecified; Z68.31 Body mass index [BMI] 31.0-31.9, adult; M25.512 Pain in left shoulder; M25.571 Pain in right ankle and joints of right foot; M25.572 Pain in left ankle and joints of left foot; J30.9 Allergic rhinitis, unspecified; R73.01 Impaired fasting glucose; D64.9 Anemia, unspecified; K21.9 Gastro-esophageal reflux disease without esophagitis; K58.2 Mixed irritable bowel syndrome; E55.9 Vitamin D deficiency, unspecified; I83.813 Varicose veins of bilateral lower extremities with pain; G47.00 Insomnia, unspecified; F41.9 Anxiety disorder, unspecified

== ENCOUNTER → 2025-09-09 15:12 | Outpatient (BNVA) | payer OTHER, SELFPAY | PROVIDERS: PCP Internal Medicine; Visit Provider Internal Medicine | DX: M25.511 Pain in right shoulder (principal); M25.512 Pain in left shoulder; M25.571 Pain in right ankle and joints of right foot; M25.572 Pain in left ankle and joints of left foot; M54.50 Low back pain, unspecified; J45.20 Mild intermittent asthma, uncomplicated; J30.9 Allergic rhinitis, unspecified; R73.01 Impaired fasting glucose; D64.9 Anemia, unspecified; K21.9 Gastro-esophageal reflux disease without esophagitis; K58.2 Mixed irritable bowel syndrome; E55.9 Vitamin D deficiency, unspecified; I83.813 Varicose veins of bilateral lower extremities with pain; G47.00 Insomnia, unspecified; F41.9 Anxiety disorder, unspecified; E66.9 Obesity, unspecified; Z68.34 Body mass index [BMI] 34.0-34.9, adult | CPT/HCPCS: 96127; 99212 ==

== ENCOUNTER 2025-09-20 12:56 | Outpatient (AMB) | payer OTHER, SELFPAY ==
[2025-09-20 12:58] VITALS: BP 127/78; PULSE 88; BMI 34.1
--- NOTE | 2025-09-20 12:58 | MHC.OFFVIS ---
Vital Signs 09/20/25 12:58 Height 5 ft 10 in Weight 238 lb BMI 34.1 BP 127/78 Blood Pressure Location Lt brachial Position Sitting Pulse 88 Intake Visit Reasons: 6 months IBS, GERD Intake Note: Demarcus presents to in office follow up of IBS and GERD. CC: Patient reports occasional abdominal pain and constipation alternating with diarrhea. 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: Comment: 2023 EGD= focal area of Barretts, repeat in 2025 with colonoscopy Code(s): K22.70 - Trivedi's esophagus without dysplasia Category: Medical (2) Irritable bowel syndrome with both constipation and diarrhea: Code(s): K58.2 - Mixed irritable bowel syndrome Category: Medical (3) GERD (gastroesophageal reflux disease): Code(s): K21.9 - Gastro-esophageal reflux disease without esophagitis Category: Medical Qualifiers: Esophagitis presence: without esophagitis Qualified Code(s): K21.9 - Gastro-esophageal reflux disease without esophagitis Plan [place] #[id number] Darryl He never took or received the Creon. He does not know the names of his medicines but I confirmed this by showing him a picture. It seems his diarrhea has stabilized and he is continuing on pantoprazole 40 mg once a day along with dicyclomine 4 times a day. With this he is satisfied with his GI regimen. Return office visit in 6 months Medications: New pantoprazole (Protonix) 40 mg PO DAILY 90 days 90 tabs 1RF K22.70 - Trivedi's esophagus without dysplasia, K58.2 - Mixed irritable bowel syndrome Refilled dicyclomine 20 mg PO QID 360 tabs 1RF K58.2 - Mixed irritable bowel syndrome Discontinued [id number] 36,000-114,000- 180,000 unit (Creon) administer with meals and/or snacks Discontinued Reason: Patient no longer taking 2 caps PO BID 60 caps 6RF K58.2 - Mixed irritable bowel syndrome TODAY'S VISIT [place] # PFSH Medical History Impaired fasting glucose Anemia Shoulder pain, bilateral Pain of right heel Bilateral ankle pain Pruritic rash Diarrhea Abdominal pain Dermatitis 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 Son No problems noted. Daughter No problems noted. Brother No problems noted. Sister No problems noted. Other Diabetes HTN (hypertension) Social History Housing: Apartment Alcohol intake: current Alcohol intake frequency: does not drink Alcohol type: beer and hard liquor Patient Tobacco Use Status: Never used Tobacco e-Cigarette/Vaping Use: Never Used Second Hand Smoke Exposure: Yes service: No Current occupational status: disabled Current occupational exposures/hazards: No Cognitive needs: No Hearing needs: No Vision needs: Yes (glasses) Review of Systems Const Denies fatigue, Denies fever(s), Denies night sweats, Denies poor appetite and Denies weight loss Eyes Details: glasses Reports requires corrective lenses ENT Reports Normal hearing present, Denies dental pain, Denies dysphagia, Denies hearing loss, Denies mouth pain, Denies odynophagia, Denies throat swelling, Denies tongue swelling and Reports other (Dentition adequate) Card Reports no additional complaints Resp Reports no additional complaints GI Details: Denies abdominal pain, Denies melena, Reports bloating, Denies hematochezia, Reports constipation, Reports GI cramping, Denies dysphagia, Denies excessive flatus, Denies early satiety, Reports heartburn, Denies diarrhea, Reports loose stools, Denies nausea, Denies odynophagia, Denies vomiting and Denies hematemesis Skin/Breast Denies pruritus, Denies lesions, Denies rash and Denies jaundice Neuro Reports Normal hearing present and Denies Abnormal speech present Endo Denies fatigue Aller/Immun Denies throat swelling and Denies tongue swelling Physical Exam Vital Signs: Last Vital Signs Pulse 88 09/20/25 12:58 BP 127/78 09/20/25 12:58 BMI result Body Mass Index 34.1 Const General: cooperative, no acute distress, well developed and well groomed Nutritional Appearance: well nourished and obese centrally obese Orientation/consciousness: oriented to person, oriented to place and oriented to time Limitations: language barrier HEENT Head: Yes normocephalic and Yes atraumatic Eyes General: appearance normal, both eyes and all related structures Pupils: Equal, round and reactive pupils present Neck Neck: Yes normal visual inspection and Yes no lymphadenopathy Thyroid: Thyroid normal Resp Effort & Inspection: normal respiratory effort and able to speak in complete sentences Auscultation: clear to auscultation bilaterally Cardio Rate: regular rate Rhythm: regular rhythm Heart sounds: Normal, physiologic split S2 sound present Peripheral pulses: radial pulses present and posterior tibial pulses present GI Inspection: No distended, No Abdominal panniculus present and Yes obesity Palpation (GI): Soft to palpation, nontender, no guarding, not rigid and No hepatosplenomegaly present Percussion: Yes normal to percussion Auscultation: normal bowel sounds Rectal Exam - Male: Yes deferred Skin General skin exam: no rashes or lesions noted, turgor normal, skin not dry, no jaundice, No spider nevi and no striae Rashes: no rashes Nails: normal Neuro General: oriented to person, oriented to place and oriented to time Cranial nerves: Yes Equal, round and reactive pupils present and Yes Normal hearing present Speech: No Abnormal speech present Extrem General: Yes normal to inspection, No clubbing, No cyanosis and No edema Psych Appearance: grossly normal and well kempt Mental Status: mental status grossly normal Speech and movement: Normal speech and movement present Affect: normal affect Attitude: cooperative Thought process: Normal thought process present and not confabulating Thought content: Normal thought content present Insight: Good insight present (Psych) Judgement: Good judgement present (Psych) Assessment & Plan Assessment & Plan (1) Irritable bowel syndrome with both constipation and diarrhea: Code(s): K58.2 - Mixed irritable bowel syndrome Category: Medical Plan [place] # Kimberli live He continues on pantoprazole 40 mg once a day along with dicyclomine 4 times a day Subjective Patient presents with worsening diffuse abdominal/intestinal pain described as cramping that can start in the upper abdomen and radiate lower, accompanied by bloating/abdominal distension. Reports alternating stool consistency with episodes of hard stools and diarrhea, sometimes varying from one bowel movement to the next, with intestinal pain during bowel movements. States dicyclomine taken in the morning and at night provides some relief. Has attempted dietary modification by avoiding spicy foods and increasing fruits and vegetables. Denies any new medications since the last visit. History notable for prior diagnosis of irritable bowel syndrome and a history of gastritis (noted to cause more localized epigastric pain previously). Objective Assessment & Plan Irritable bowel syndrome with alternating constipation and diarrhea: Symptoms include cramping abdominal pain, bloating, and alternating stool form consistent with prior IBS diagnosis. Pain with bowel movements likely related to bowel spasm; gas also contributing. - Start fiber therapy: fiber capsules, 1 capsule twice daily. - If partial improvement but inadequate control, increase fiber dose as discussed. - Prescription sent to pharmacy; if not covered by insurance, advise patient to ask pharmacist for an inexpensive [id number] equivalent product. - Dietary counseling provided: continue avoiding spicy foods; may need to be cautious with richer foods that can exacerbate symptoms. - Follow-up in 2 months to assess response to fiber after an adequate trial. Medications: New psyllium husk (Fiber (psyllium husk)) 0.4 grams PO BID 60 caps 6RF K58.2 - Mixed irritable bowel syndrome Refilled pantoprazole 40 mg PO BID 180 tabs 2RF K22.70 - Trivedi's esophagus without dysplasia, K58.2 - Mixed irritable bowel syndrome dicyclomine 20 mg PO QID 360 tabs 1RF K58.2 - Mixed irritable bowel syndrome Coding Level of Care Code Est Pt Level 3 (73100) Diagnoses Irritable bowel syndrome with both constipation and diarrhea K58.2
== END 2025-09-20 14:24 | disposition home or self-care (01) ==
LOC: HO.HGI 12:57
PROVIDERS: PCP Internal Medicine; Visit Provider Nurse Practitioner
DX: K58.2 Mixed irritable bowel syndrome (principal)
CPT/HCPCS: 99213

== ENCOUNTER → 2025-09-20 12:56 | Outpatient (BNVA) | payer OTHER, SELFPAY | PROVIDERS: PCP Internal Medicine; Visit Provider Nurse Practitioner | DX: K58.2 Mixed irritable bowel syndrome (principal) | CPT/HCPCS: 99212 ==